=== PATIENT | female | born 1970 | race Caucasian/White ===

== ENCOUNTER 2018-08-02 06:52 | Emergency (ER) | payer MEDICARE, MEDICAID, SELFPAY ==
[2018-08-02 07:06] VITALS: BP 134/81; PULSE 90; RESP 18; TEMP 36.8; O2SAT 94
--- NOTE | 2018-08-02 07:33 | W.ED.GENAD ---
Discharge Plan Disposition Patient Disposition: HOME Condition: Stable Discharge Details Chief Complaint: RespSymp Clinical Impression: Acute exacerbation of chronic bronchitis Primary Care Provider: Jewel Parham ED Provider: Mary Valdez Home Meds and New Rx's Prescriptions: New doxycycline hyclate 100 mg tablet 100 mg PO BID Qty: 19 RF: 0 prednisone 50 mg tablet 50 mg PO DAILY Qty: 4 RF: 0 Continue lamotrigine [Lamictal] 25 MG tablet 25 mg PO DAILY RF: 0 escitalopram oxalate [Lexapro] 20 MG tablet 20 mg PO DAILY RF: 0 ipratropium-albuterol [Combivent] 200 PUFF aerosol 2 puff Inhalation DAILY RF: 0 naproxen 250 MG tablet 250 mg PO PRN PRNRF: 0 nabumetone 500 MG tablet 500 mg PO PRN PRNRF: 0 albuterol sulfate [ProAir HFA] 8.5 GM HFA aerosol inhaler 200 puff Inhalation Q4H PRN PRN (Reason: wheeze) Qty: 1 RF: 0 Discharge Instructions Instructions: Acute Bronchitis (ED), COPD (Chronic Obstructive Pulmonary Disease) (ED) Additional Instructions: Please return immediately to the emergency department if you develop any new or worsening symptoms or if you become otherwise concerned. It is extremely important that you make an appointment to be seen by your primary care doctor within the next 1-2 weeks in follow-up this visit. Referrals: Jewel Parham [Primary Care Provider] - Discharge Data Discharge Date/Time-TO BE ENTERED AT DEPARTURE: 08/02/18 10:03 Medical Decision Making Sunni Silva is a 48 y/o woman with h/o COPD, anxiety who presents emergency room with cough and shortness of breath over the past few days consistent with prior COPD exacerbations. On exam patient is nontoxic-appearing. She has intermittent dry cough, wheeze bilaterally and faint rhonchi left lower lobe on exam. There is no tachypnea or respiratory distress. Concern for COPD exacerbation versus pneumonia versus other. Exam/history not consistent with ACS, PE, sepsis, acute aortic pathology. Plan for chest x-ray, duo nebs, prednisone, screening EKG. Will monitor and reassess. CXR okay. Pt with improvement after one duoneb, feels less SOB, wheeze improved but not resolved on auscultation. Will repeat. Pt feels back to baseline after 2nd duoneb. Lungs now CTAB. Will treat acute COPD exacerbation with doxy, prednisone. Lengthy discussion with Pt re: RTED precautions and importance of outpt f/u with PCP. She is amenable to the plan. Medical Records Medical records reviewed: Yes I reviewed the patient's medical records. Imaging Data Radiologic Study: Attestation: I personally reviewed and interpreted this imaging study as follows: Imaging: X-Ray Radiologist's impression: PA AND LATERAL CHEST: Comparison is made with 03/17/18. Heart size and pulmonary vasculature are within normal limits. No evidence of acute pneumonia or congestive heart failure is seen. No effusions or pneumothoraces are identified. There is a mild S type scoliosis of the thoracolumbar spine. IMPRESSION: No acute pulmonary process. ECG Data Attestation: I personally reviewed and interpreted this ECG (s) as follows: Interpretation: EKG shows normal sinus rhythm at 80 with normal axis, no acute ischemic changes, unchanged from prior, Nondiagnostic EKG HPI General Mode of arrival: ambulatory. Date/Time Provider Initiated Documentation: 08/02/18 07:08. Limitations to Documentation: no limitations. Information obtained by: patient, RN notes reviewed and old records reviewed. HPI Narrative: Sunni Salomon is a 28-year-old woman with history of COPD presenting to the emergency department with shortness of breath and cough. Patient reports that she has had the symptoms for the past 3-4 days. She has been using Combivent and albuterol inhaler at home without relief of symptoms. Cough is productive of thick white sputum. She has had subjective fevers. She denies vomiting or diarrhea, chest pain or any other pain. Last use albuterol inhaler this morning one time without relief. Patient reports it has been at least a year since she was on steroids for her COPD. She is a current smoker. Related Data Home Medications Medication Instructions Recorded Confirmed escitalopram oxalate [Lexapro] 20 mg PO DAILY 05/11/17 08/02/18 lamotrigine [Lamictal] 25 mg PO DAILY 05/11/17 08/02/18 ipratropium-albuterol [Combivent] 2 puff INHALATION DAILY 05/29/17 08/02/18 nabumetone 500 mg PO PRN PRN 09/11/17 08/02/18 naproxen 250 mg PO PRN PRN 09/11/17 08/02/18 albuterol sulfate [ProAir HFA] 200 puff INHALATION Q4H PRN PRN #1 03/07/18 08/02/18 [email or web address].ad doxycycline hyclate 100 mg PO BID #19 tab 08/02/18 prednisone 50 mg PO DAILY #4 tab 08/02/18 Previous Rx's Medication Instructions Recorded albuterol sulfate [ProAir HFA] 200 puff INHALATION Q4H PRN PRN #1 03/07/18 [email or web address].ad doxycycline hyclate 100 mg PO BID #19 tab 08/02/18 prednisone 50 mg PO DAILY #4 tab 08/02/18 Allergies Allergy/AdvReac Type Severity Reaction Status Date / Time azithromycin [From Zithromax] Allergy Severe hives Unverified 08/02/18 07:09 aripiprazole Allergy Intermediate Nausea Unverified 08/02/18 07:09 chocolate flavor Allergy Unknown Unverified 08/02/18 07:09 coconut Allergy Unknown Unverified 08/02/18 07:09 erythromycin base Allergy Unknown Unverified 08/02/18 07:09 mushroom Allergy Unknown Unverified 08/02/18 07:09 pollen extracts Allergy Unknown Unverified 08/02/18 07:09 nicotine AdvReac Other (See Unverified 08/02/18 07:09 Comment) DUST Allergy Unknown Uncoded 08/02/18 07:09 General Stated Complaint: RespSymp NIC: 3 Review of Systems Review of Systems Constitutional: denies fevers Eyes: denies eye pain ENT: denies facial pain, dental pain, sore throat Cardiovascular: denies chest pain, edema Respiratory: reports SOB, cough GI: denies abdominal pain, vomiting, diarrhea : denies flank pain MSK: denies back pain, neck pain, arthralgias, myalgias Skin: denies rash Neuro: denies headaches, lightheadedness, weakness PFSH Medical History Abscess of sigmoid colon Bipolar affective disorder Bleeding external hemorrhoids Borderline personality disorder COPD (chronic obstructive pulmonary disease) Crohns disease DDD (degenerative disc disease), lumbosacral Depression with anxiety Disassociation disorder Major depressive disorder PTSD (post-traumatic stress disorder) Social History Smoking/Tobacco Use Status: Current every day Surgical History Exam under Anesthesia (09/15/17) Exam Narrative Exam Narrative: Constitutional: well and [id number], pleasant, conversing normally HENT: head atraumatic, normocephalic normal inspection, mucous membranes moist Eyes: conjunctiva normal, sclera normal, pupils 3mm b/l Neck: no stridor, normal ROM, trachea midline Chest: normal inspection Resp: normal work of breathing, wheeze b/l throughout, mild rhonchi LLL Cardio: normal rate, normal rhythm, no murmur appreciated Back: normal inspection, no rash Skin: warm, dry, normal color, no rash Neuro: alert, not altered, grossly non-focal, normal tone Ext: no edema, no posterior calf TTP Psych: normal mood, normal affect, normal behavior Course Vital Signs Temperature 36.8 C 08/02/18 07:06 Pulse 90 08/02/18 07:06 Respiratory Rate 18 08/02/18 07:06 Blood Pressure 134/81 08/02/18 07:06 Pulse Oximetry 94 L 08/02/18 07:06 Temperature 36.8 C 08/02/18 07:06 Temperature Source Temporal Artery Scan 08/02/18 07:06 Pulse 90 08/02/18 07:06 Respiratory Rate 18 08/02/18 07:06 Respiratory Effort Non-Labored 08/02/18 07:10 Respiratory Depth Normal 08/02/18 07:10 Blood Pressure 134/81 08/02/18 07:06 Blood Pressure Position Standing 08/02/18 07:06 Pulse Oximetry 94 L 08/02/18 07:06 Oxygen Delivery Method Room Air 08/02/18 07:06 Oxygen Flow Rate 0 08/02/18 07:06 End Tidal Co2 6 08/02/18 07:06
--- NOTE | 2018-08-02 07:39 | DI.RAD_ITS ---
SYMPTOM/DIAGNOSIS: SOB, COUGH PA AND LATERAL CHEST: Comparison is made with 03/17/18. Heart size and pulmonary vasculature are within normal limits. No evidence of acute pneumonia or congestive heart failure is seen. No effusions or pneumothoraces are identified. There is a mild S type scoliosis of the thoracolumbar spine. IMPRESSION: No acute pulmonary process.
[2018-08-02] MEDS: predniSONE 20 MG TAB 60 MG PO (07:47)
[2018-08-02] MEDS: Albuterol/Ipratropium 3 ML UPD VIAL UPD ×2 (07:47→09:00)
[2018-08-02 08:17] VITALS: RESP 1
--- NOTE | 2018-08-02 08:39 | DI.VRAD_ITS ---
EXAM: XR Chest, 2 Views EXAM DATE/TIME: 08/02/2018 8:20 AM CLINICAL HISTORY: 48 years old, female; Signs and symptoms; Other: SOB cough TECHNIQUE: XR of the chest, 2 views. COMPARISON: CR CHEST 2 VIEWS PA,LAT 03/17/2018 2:41 PM FINDINGS: Lungs: There is minor streaky bibasilar atelectasis. The lungs are otherwise clear. Pleural space: Unremarkable. No pleural effusion. No pneumothorax. Heart/Mediastinum: The cardiomediastinal silhouette is fairly stable in appearance. Bones/joints: There is again an S-shaped thoracic scoliosis. IMPRESSION: No evidence for acute pulmonary disease. Dictated and Authenticated by: Ian Elizondo MD. Ordering:GAMA REYES MD
[2018-08-02] MEDS: Doxycycline Hyclate 100 MG CAP PO (09:50)
[2018-08-02 10:00] VITALS: BP 124/73; PULSE 88; RESP 18; TEMP 36.8; O2SAT 95
--- NOTE | 2018-08-03 12:19 | PDOC.ERCMPRO ---
Care Management Progress Note 08/03-Dr. Colten Valdez requested assistance with a PCP (use to see Jewel Parham, requesting local provider, Dr. Baig contact officer) f/u in 1-2 weeks for COPD exacerbation. Referral faxed to [facility].
--- NOTE | 2018-08-03 12:23 | CMPROGNOTE_ITS ---
Care Management Progress Note 08/03-Dr. Colten Valdez requested assistance with a PCP (use to see Jewel Parham , requesting local provider, Dr. Baig loss mitigation specialist) f/u in 1-2 weeks for COPD exacerbation. Referral faxed to [facility].
== END 2018-08-02 10:03 | disposition home or self-care (01) ==
PROVIDERS: Emergency Provider Student in an Organized Health Care Education/Training Program; PCP Family Medicine
DX: J44.0 Chronic obstructive pulmonary disease with (acute) lower respiratory infection (principal); J20.9 Acute bronchitis, unspecified; F17.210 Nicotine dependence, cigarettes, uncomplicated
CPT/HCPCS: 93005; 94640; 99284; 71046; 93010; J7512; J7620

== ENCOUNTER 2018-11-15 20:21 | Inpatient (IN) | payer MEDICARE, MEDICAID, SELFPAY ==
[2018-11-15] VITALS (25 sets, daily range): BP systolic 104–123; BP diastolic 55–97; PULSE 86–112; RESP 4–38; TEMP 38.3; O2SAT 91–100
--- NOTE | 2018-11-15 20:56 | W.ED.GENAD ---
Discharge Plan Disposition Patient Disposition: [facility] INPATIENT Condition: Serious Discharge Details Chief Complaint: Chest Pain Clinical Impression: Pneumonia, COPD exacerbation Primary Care Provider: Jewel Parham ED Provider: Camden Valdez Home Meds and New Rx's Prescriptions: No Action lamotrigine [Lamictal] 25 MG tablet 25 mg PO DAILY RF: 0 escitalopram oxalate [Lexapro] 20 MG tablet 20 mg PO DAILY RF: 0 ipratropium-albuterol [Combivent] 200 PUFF aerosol 2 puff Inhalation DAILY RF: 0 naproxen 250 MG tablet 250 mg PO PRN PRNRF: 0 nabumetone 500 MG tablet 500 mg PO PRN PRNRF: 0 doxycycline hyclate 100 mg tablet 100 mg PO BID Qty: 19 RF: 0 prednisone 50 mg tablet 50 mg PO DAILY Qty: 4 RF: 0 albuterol sulfate [ProAir HFA] 8.5 GM HFA aerosol inhaler 200 puff Inhalation Q4H PRN PRN (Reason: wheeze) Qty: 1 RF: 0 Medical Decision Making 21:08 --48-year-old female with history of COPD here with left posterior lateral rib pain after fall on ice as well as general illness consisting of fever, myalgias, nausea, vomiting, diarrhea, and intermittently productive cough. Tachycardic. Clinically hypovolemic. Patient did not receive flu shot this year. I recommended testing for flu and patient declined. Patient provided informed refusal to flu testing. Suspect rib contusion versus fracture. Consider pneumothorax. Will treat pain with lidocaine patch and ibuprofen. Consider also pneumonia given symptoms. Plan to obtain chest x-ray. Will give doxycycline 100mg PO. Patient does have wheeze bilaterally. Suspect superimposed COPD exacerbation. Plan to treat with Solu-Medrol and DuoNeb. Zofran given for nausea. I will give IV fluid rehydration. 22:27 -- Labs reviewed: Leukocytosis and lactic acidosis noted. Chest x-ray reviewed and interpreted by radiology: IMPRESSION: Subtle patchy airspace disease in the lung bases. Findings suggesting infiltrates or pneumonia. 6 week followup study suggested. Patient persistently tachycardic. Continue IVF - will give second bolus. Will add ceftriaxone IV. Patient meets SIRS criteria. 23:00 -- I called and spoke with Dr. Lockett who will admit the patient. He request bridging orders be placed to the floor (IVF, nebs, diet). I spoke with warehouse stock clerk - bed to be available later this evening. HPI General Mode of arrival: ambulatory. Date/Time Provider Initiated Documentation: 11/15/18 20:45. Limitations to Documentation: no limitations. Information obtained by: patient. HPI Narrative: 48-year-old female with history of COPD presents with chief complaint of chest pain. Patient notes that over the past few days she slipped on ice and fallen 3 times and injured her chest during this fall. She has pain in her posterior lateral left mid chest and it radiates around laterally. Pain is severe and worse on palpation and with deep inspiration or cough. Patient also notes that she is been coughing over the past week with intermittently productive of white sputum. She has associated fever, nausea, vomiting, and body aches. Related Data Home Medications Medication Instructions Recorded Confirmed escitalopram oxalate [Lexapro] 20 mg PO DAILY 05/11/17 08/02/18 lamotrigine [Lamictal] 25 mg PO DAILY 05/11/17 08/02/18 ipratropium-albuterol [Combivent] 2 puff INHALATION DAILY 05/29/17 08/02/18 nabumetone 500 mg PO PRN PRN 09/11/17 08/02/18 naproxen 250 mg PO PRN PRN 09/11/17 08/02/18 albuterol sulfate [ProAir HFA] 200 puff INHALATION Q4H PRN PRN #1 03/07/18 08/02/18 [email or web address].ad doxycycline hyclate 100 mg PO BID #19 tab 08/02/18 prednisone 50 mg PO DAILY #4 tab 08/02/18 Previous Rx's Medication Instructions Recorded albuterol sulfate [ProAir HFA] 200 puff INHALATION Q4H PRN PRN #1 03/07/18 hfa.aer.ad doxycycline hyclate 100 mg PO BID #19 tab 08/02/18 prednisone 50 mg PO DAILY #4 tab 08/02/18 Allergies Allergy/AdvReac Type Severity Reaction Status Date / Time azithromycin [From Zithromax] Allergy Severe hives Unverified 08/02/18 07:09 aripiprazole Allergy Intermediate Nausea Unverified 08/02/18 07:09 chocolate flavor Allergy Unknown Unverified 08/02/18 07:09 coconut Allergy Unknown Unverified 08/02/18 07:09 erythromycin base Allergy Unknown Unverified 08/02/18 07:09 mushroom Allergy Unknown Unverified 08/02/18 07:09 pollen extracts Allergy Unknown Unverified 08/02/18 07:09 nicotine AdvReac Other (See Unverified 08/02/18 07:09 Comment) DUST Allergy Unknown Uncoded 08/02/18 07:09 General Stated Complaint: Chest Pain NIC: 2 Review of Systems Review of Systems All systems reviewed & are unremarkable except as noted in HPI and below Constitutional Reports body ache(s) and Reports fever(s) Respiratory Reports cough and Reports pain with cough Gastrointestinal Denies abdominal pain, Reports nausea and Reports vomiting PFSH Medical History Abscess of sigmoid colon Bipolar affective disorder Bleeding external hemorrhoids Borderline personality disorder COPD (chronic obstructive pulmonary disease) Crohns disease DDD (degenerative disc disease), lumbosacral Depression with anxiety Disassociation disorder Major depressive disorder PTSD (post-traumatic stress disorder) Surgical History Exam under Anesthesia (09/15/17) Social History Smoking and Tabacco status: Current every day Exam Const General: cooperative and no acute distress HENMT Head: normocephalic and atraumatic Mouth: mucous membranes dry Eyes Conjunctivae: normal conjunctivae Sclera: normal sclerae EOM: EOM intact bilaterally Neck Neck: trachea midline and supple Chest Chest: no crepitus and localized rib tenderness with anteroposterior compression (posterior lateral t6 left) Resp Auscultation: no rales, no rhonchi and wheezes Cardio Jugular venous pressure: no JVD Rate: tachycardic Rhythm: regular rhythm Heart Sounds: no gallops, no murmurs and no rubs GI Palpation: soft, not firm, no guarding, no masses, not rigid and nontender Skin General skin exam: no rashes or lesions noted Neuro General: alert, awake, oriented x3 and tone normal Extrem General: no calf tenderness and no edema Psych Mood: anxious mood Course Vital Signs Temperature 38.3 C H 11/15/18 20:27 Pulse 106 H 11/15/18 20:27 Respiratory Rate 16 02/11/19 20:27 Blood Pressure 118/81 11/15/18 20:27 Pulse Oximetry 94 L 11/15/18 20:27 Temperature 38.3 C H 11/15/18 20:27 Temperature Source Skin 11/15/18 20:27 Pulse 106 H 11/15/18 20:27 Respiratory Rate 16 11/15/18 20:27 Blood Pressure 118/81 11/15/18 20:27 Pulse Oximetry 94 L 11/15/18 20:27 Oxygen Delivery Method Room Air 11/15/18 20:27 Oxygen Flow Rate 0 11/15/18 20:27 Pain Level 10 11/15/18 20:27
--- NOTE | 2018-11-15 21:03 | ED.GENADUL_ITS ---
Discharge Plan Disposition Patient Disposition: [facility] INPATIENT Condition: Serious Discharge Details Chief Complaint: Chest Pain Clinical Impression: Pneumonia, COPD exacerbation Primary Care Provider: Jewel Parham ED Provider: Camden Valdez Home Meds and New Rx's Prescriptions: No Action lamotrigine [Lamictal] 25 MG tablet 25 mg PO DAILY RF: 0 escitalopram oxalate [Lexapro] 20 MG tablet 20 mg PO DAILY RF: 0 ipratropium-albuterol [Combivent] 200 PUFF aerosol 2 puff Inhalation DAILY RF: 0 naproxen 250 MG tablet 250 mg PO PRN PRNRF: 0 nabumetone 500 MG tablet 500 mg PO PRN PRNRF: 0 doxycycline hyclate 100 mg tablet 100 mg PO BID Qty: 19 RF: 0 prednisone 50 mg tablet 50 mg PO DAILY Qty: 4 RF: 0 albuterol sulfate [ProAir HFA] 8.5 GM HFA aerosol inhaler 200 puff Inhalation Q4H PRN PRN (Reason: wheeze) Qty: 1 RF: 0 Medical Decision Making 21:08 --48-year-old female with history of COPD here with left posterior lateral rib pain after fall on ice as well as general illness consisting of fever, myalgias, nausea, vomiting, diarrhea, and intermittently productive cough. Tachycardic. Clinically hypovolemic. Patient did not receive flu shot this year. I recommended testing for flu and patient declined. Patient provided informed refusal to flu testing. Suspect rib contusion versus fracture. Consider pneumothorax. Will treat pain with lidocaine patch and ibuprofen. Consider also pneumonia given symptoms. Plan to obtain chest x-ray. Will give doxycycline 100mg PO. Patient does have wheeze bilaterally. Suspect superimposed COPD exacerbation. Plan to treat with Solu-Medrol and DuoNeb. Zofran given for nausea. I will give IV fluid rehydration. 22:27 -- Labs reviewed: Leukocytosis and lactic acidosis noted. Chest x-ray reviewed and interpreted by radiology: IMPRESSION: Subtle patchy airspace disease in the lung bases. Findings suggesting infiltrates or pneumonia. 6 week followup study suggested. Patient persistently tachycardic. Continue IVF - will give second bolus. Will add ceftriaxone IV. Patient meets SIRS criteria. 23:00 -- I called and spoke with Dr. Lockett who will admit the patient. He request bridging orders be placed to the floor (IVF, nebs, diet). I spoke with supervisor bottle house cleaners - bed to be available later this evening. HPI General Mode of arrival: ambulatory . Date/Time Provider Initiated Documentation: 11/15/18 20:45 . Limitations to Documentation: no limitations . Information obtained by: patient . HPI Narrative: 48-year-old female with history of COPD presents with chief complaint of chest pain. Patient notes that over the past few days she slipped on ice and fallen 3 times and injured her chest during this fall. She has pain in her posterior lateral left mid chest and it radiates around laterally. Pain is severe and worse on palpation and with deep inspiration or cough. Patient also notes that she is been coughing over the past week with intermittently productive of white sputum. She has associated fever, nausea, vomiting, and body aches. Related Data Home Medications Medication Instructions Recorded Confirmed escitalopram oxalate [Lexapro] 20 mg PO DAILY 05/11/17 08/02/18 lamotrigine [Lamictal] 25 mg PO DAILY 05/11/17 08/02/18 ipratropium-albuterol [Combivent] 2 puff INHALATION DAILY 05/29/17 08/02/18 nabumetone 500 mg PO PRN PRN 09/11/17 08/02/18 naproxen 250 mg PO PRN PRN 09/11/17 08/02/18 albuterol sulfate [ProAir HFA] 200 puff INHALATION Q4H PRN PRN #1 03/07/18 08/02/18 hfa.aer.ad doxycycline hyclate 100 mg PO BID #19 tab 08/02/18 prednisone 50 mg PO DAILY #4 tab 08/02/18 Previous Rx's Medication Instructions Recorded albuterol sulfate [ProAir HFA] 200 puff INHALATION Q4H PRN PRN #1 03/07/18 hfa.aer.ad doxycycline hyclate 100 mg PO BID #19 tab 08/02/18 prednisone 50 mg PO DAILY #4 tab 08/02/18 Allergies Allergy/AdvReac Type Severity Reaction Status Date / Time azithromycin [From Zithromax] Allergy Severe hives Unverified 08/02/18 07:09 aripiprazole Allergy Intermediate Nausea Unverified 08/02/18 07:09 chocolate flavor Allergy Unknown Unverified 08/02/18 07:09 coconut Allergy Unknown Unverified 08/02/18 07:09 erythromycin base Allergy Unknown Unverified 08/02/18 07:09 mushroom Allergy Unknown Unverified 08/02/18 07:09 pollen extracts Allergy Unknown Unverified 08/02/18 07:09 nicotine AdvReac Other (See Unverified 08/02/18 07:09 Comment) DUST Allergy Unknown Uncoded 08/02/18 07:09 General Stated Complaint: Chest Pain NIC: 2 Review of Systems Review of Systems All systems reviewed & are unremarkable except as noted in HPI and below Constitutional Reports body ache(s) and Reports fever(s) Respiratory Reports cough and Reports pain with cough Gastrointestinal Denies abdominal pain, Reports nausea and Reports vomiting PFSH Medical History Abscess of sigmoid colon Bipolar affective disorder Bleeding external hemorrhoids Borderline personality disorder COPD (chronic obstructive pulmonary disease) Crohns disease DDD (degenerative disc disease), lumbosacral Depression with anxiety Disassociation disorder Major depressive disorder PTSD (post-traumatic stress disorder) Surgical History Exam under Anesthesia (09/15/17) Social History Smoking and Tabacco status: Current every day Exam Const General: cooperative and no acute distress HENMT Head: normocephalic and atraumatic Mouth: mucous membranes dry Eyes Conjunctivae: normal conjunctivae Sclera: normal sclerae EOM: EOM intact bilaterally Neck Neck: trachea midline and supple Chest Chest: no crepitus and localized rib tenderness with anteroposterior compression (posterior lateral t6 left) Resp Auscultation: no rales, no rhonchi and wheezes Cardio Jugular venous pressure: no JVD Rate: tachycardic Rhythm: regular rhythm Heart Sounds: no gallops, no murmurs and no rubs GI Palpation: soft, not firm, no guarding, no masses, not rigid and nontender Skin General skin exam: no rashes or lesions noted Neuro General: alert, awake, oriented x3 and tone normal Extrem General: no calf tenderness and no edema Psych Mood: anxious mood Course Vital Signs Temperature 38.3 C H 11/15/18 20:27 Pulse 106 H 11/15/18 20:27 Respiratory Rate 16 02/11/19 20:27 Blood Pressure 118/81 11/15/18 20:27 Pulse Oximetry 94 L 11/15/18 20:27 Temperature 38.3 C H 11/15/18 20:27 Temperature Source Skin 11/15/18 20:27 Pulse 106 H 11/15/18 20:27 Respiratory Rate 16 11/15/18 20:27 Blood Pressure 118/81 11/15/18 20:27 Pulse Oximetry 94 L 11/15/18 20:27 Oxygen Delivery Method Room Air 11/15/18 20:27 Oxygen Flow Rate 0 11/15/18 20:27 Pain Level 10 11/15/18 20:27
[2018-11-15] MEDS: Ondansetron 4 MG/2 ML VIAL IVP (21:07)
[2018-11-15] MEDS: Lidocaine 5% Patch 1 PATCH (21:07)
[2018-11-15] MEDS: Albuterol/Ipratropium 3 ML UPD VIAL UPD ×2 (21:07→23:02)
[2018-11-15] MEDS: Doxycycline Hyclate 100 MG CAP PO (21:07)
[2018-11-15] MEDS: Lactated Ringers 1,000 ML 1000 ML IV ×2 (21:08→22:30)
[2018-11-15] MEDS: methylPREDNISolone SUCC 125 MG VIAL IVP (21:08)
[2018-11-15] MEDS: Ketorolac 15 MG/ML VIAL IVP (21:27)
[2018-11-15 21:32] LABS: Lactate-non-spesis 2.9 mmol/l (0.6-1.4)
[2018-11-15 21:34] LABS: Abs Immature Grans 0.03 k/cumm (0.0-0.09); Absolute Eosinophil Count 0.58 k/cumm (0.0-0.7); Absolute Lymphocyte Count 2.01 k/cumm (1.2-3.4); Absolute Monocyte Count 1.19 k/cumm (0.11-0.7); Basophils % 0.1; Eosinophils % 4.3; HCT 44.3 % (36.0-46.0); HGB 15.3 g/dL (12.0-15.5); Immature Grans % 0.2; Lymphocytes % 14.9; Mean Corp. HGB Concentration 34.5 g/dL (32.0-36.0); Mean Corpuscular Hemoglobin 32.2 pg (27.0-33.0); Mean Corpuscular Volume 93.3 fL (80-95); Mean Platelet Volume 9.9 fL (8.0-11.0); Monocytes % 8.8; Neutrophils % 71.7; Platelet Count 322 x1000/uL (130-400); RBC 4.75 m/cumm (4.00-5.20); RBC Distribution Width 11.6 % (11.7-14.6); White Blood Cell Count 13.48 k/cumm (4.4-10.8)
[2018-11-15 21:35] LABS: Absolute Basophil Count 0.01 k/cumm (0.0-0.2); Absolute Neutrophil Count 9.67 k/cumm (1.2-6.7)
[2018-11-15 21:53] LABS: ALT 18 U/L (12-78); AST 17 U/L (15-37); Albumin 3.3 g/dL (3.4-5.0); Alkaline Phosphatase 101 U/L (46-116); Anion Gap 10.5 mmol/L (3-11); BUN 5 mg/dL (7-18); Bilirubin, Total 0.3 mg/dL (0.2-1.0); CO2 25.5 mmol/L (21.0-32.0); CREATININE 0.83 mg/dL (0.55-1.02); Chloride 95 mmol/L (98-107); Glucose 289 mg/dL (70-100); Potassium 3.5 mmol/L (3.5-5.1); Sodium 131 mmol/L (136-145); Total Protein 7.8 g/dL (6.4-8.2)
--- NOTE | 2018-11-15 22:10 | DI.RAD_ITS ---
SYMPTOM/DIAGNOSIS: COUGH, LT CHEST PAIN AFTER FALL PA AND LATERAL CHEST: Comparison is made with 08/02/18. Heart size and pulmonary vasculature are within normal limits. There are air space opacities seen in the lung bases, right greater than left. No effusions or pneumothoraces are identified. There is a mild right convex scoliosis of the thoracic spine. No acute fracture is identified. IMPRESSION: Bilateral basilar infiltrates, right greater than left. This may represent a pneumonia. Follow up examination to document resolution of the infiltrates is recommended in this patient.
--- NOTE | 2018-11-15 22:22 | DI.VRAD_ITS ---
EXAM: XR Chest, 2 Views EXAM DATE/TIME: 11/15/2018 8:56 PM CLINICAL HISTORY: 48 years old, female; Pain and signs and symptoms; Cough; Other: Left sided shoulder around front; Patient HX: Left sided chest pain shoulder radiating around front under arm after recent fall, cough, TECHNIQUE: XR of the chest, 2 views. COMPARISON: CR XR CHEST 2V PA LATERAL 08/02/2018 8:13 AM FINDINGS: Lungs: Subtle patchy airspace disease in the lung bases. Pleural space: Unremarkable. No evidence of pneumothorax. Heart/Mediastinum: Unremarkable. Heart size within normal limits for technique. Bones/joints: Unremarkable. IMPRESSION: Subtle patchy airspace disease in the lung bases. Findings suggesting infiltrates or pneumonia. 6 week followup study suggested. Dictated and Authenticated by: Gil Wyatt MD. Ordering:HOLDEN Hannah MD
[2018-11-15 23:56] LABS: Lactate-non-spesis 1.6 mmol/l (0.6-1.4)
[2018-11-16] MEDS: Lactated Ringers 1,000 ML 150 ML IV ×3 (00:16→12:44)
[2018-11-16 00:45] VITALS: BP 111/66; PULSE 92; RESP 18; TEMP 37.3; O2SAT 95
[2018-11-16 03:35] VITALS: BP 105/61; PULSE 85; RESP 16; TEMP 36.9; O2SAT 96
[2018-11-16] MEDS: Acetaminophen 325 MG TAB 650 MG PO (03:45)
--- NOTE | 2018-11-16 06:14 | HPE_ITS ---
Date of service: 11/16/18 Time of Service: 06:00 Assessment and Plan (1) COPD (chronic obstructive pulmonary disease): Current visit: Yes Status: Chronic COPD exacerbation and pneumonia. Flulike illness initially, note that patient declined flu test. She is much improved this morning. I would continue inhalers, pulse steroids and antibiotics. I think she could probably manage as an outpatient at this point given the rapid improvement. As to the thoracic pain which was the immediate precipitant of her visit it is probably fair to consider this a chest contusion at this point although it must be noted that a formal rib series was not obtained. Should there remain any question clinically we could c ertainly do so. History of Present Illness Chief Complaint: Chest pain and cough Narrative: Patient is a 48-year-old female with history of COPD she came to the emergency room because of chest pain after a fall on the ice, pain is in the left scapular region. However, she also reports 4 days of cough, fever, myalgias, diarrhea and generalized malaise. She did not have a flu shot in the emergency room initial workup of note for sinus tachycardia, leukocytosis and chest x-ray demonstrating bibasilar pneumonitis. She was also found to be wheezing. Patient was given IV fluids, initially a do se of doxycycline orally and then IV Rocephin, updrafts and steroids. She was admitted for further management. This morning the patient says she feels tremendously improved, virtually back to her usual self. Note that no fracture was noted on chest film. Review of Systems Review of Systems All systems reviewed & are unremarkable except as noted in HPI and below PFSH Medical History Abscess of sigmoid colon Bipolar affective disorder Bleeding external hemorrhoids Borderline personality disorder COPD (chronic obstructive pulmonary disease) Crohns disease DDD (degenerative disc disease), lumbosacral Depression with anxiety Disassociation disorder Major depressive disorder PTSD (post-traumatic stress disorder) Surgical History Exam under Anesthesia (09/15/17) Social History Smoking and Tabacco status: Current every day Meds Home Medications Medication Instructions Recorded Confirmed Type escitalopram oxalate [Lexapro] 100 mg PO DAILY 05/11/17 11/16/18 History lamotrigine [Lamictal] 25 mg PO DAILY 05/11/17 11/16/18 History Combivent 2 puff INHALATION DAILY 05/29/17 11/16/18 History nabumetone 500 mg PO PRN PRN 09/11/17 11/16/18 History naproxen 250 mg PO PRN PRN 09/11/17 11/16/18 History ProAir HFA 200 puff INHALATION Q4H PRN PRN #1 03/07/18 11/16/18 Rx hfa.aer.ad doxycycline hyclate 100 mg PO BID #19 tab 08/02/18 11/16/18 Rx prednisone 50 mg PO DAILY #4 tab 08/02/18 11/16/18 Rx dextroamphetamine-amphetamine 20 mg PO BID 11/16/18 11/16/18 History [Adderall] Allergies Allergy/AdvReac Type Severity Reaction Status Date / Time azithromycin [From Zithromax] Allergy Severe hives Unverified 08/02/18 07:09 aripiprazole Allergy Intermediate Nausea Unverified 08/02/18 07:09 chocolate flavor Allergy Unknown Unverified 08/02/18 07:09 coconut Allergy Unknown Unverified 08/02/18 07:09 erythromycin base Allergy Unknown Unverified 08/02/18 07:09 mushroom Allergy Unknown Unverified 08/02/18 07:09 pollen extracts Allergy Unknown Unverified 08/02/18 07:09 nicotine AdvReac Other (See Unverified 08/02/18 07:09 Comment) DUST Allergy Unknown Uncoded 08/02/18 07:09 Exam Narrative Exam Narrative: Patient is lying flat in the bed in no distress. Blood pressure 105/61, pulse 85, respirations 16, temp 36.9, O2 sat 96% on room air. HEENT unremarkable. Neck is supple. Lungs are clear. Chest wall shows no bruising and no tenderness on the left posteriorly. heart regular rate and rhythm. Abdomen is soft and nontender. Extremities without edema. Neurological patient is alert and oriented moves all 4 extremities. Results Labs : 11/15/18 21:15 11/15/18 21:15 Laboratory Results - last 24 hr 11/15/18 11/15/18 11/15/18 21:15 21:15 21:15 WBC 13.48 H RBC 4.75 Hgb 15.3 Hct 44.3 MCV 93.3 MCH 32.2 MCHC 34.5 RDW 11.6 L Plt Count 322 MPV 9.9 Immature Gran % 0.2 Neutrophils % 71.7 Lymphocytes % 14.9 Monocytes % 8.8 Eosinophils % 4.3 Basophils % 0.1 Absolute Neutrophils 9.67 H Absolute Lymphocytes 2.01 Absolute Monocytes 1.19 H Absolute Eosinophils 0.58 Absolute Basophils 0.01 Sodium 131 L Potassium 3.5 Chloride 95 L Carbon Dioxide 25.5 Anion Gap 10.5 BUN 5 L Creatinine 0.83 Estimated GFR/1.73 m2 >= 60.00 Glucose 289 H Lactate 2.9 H Calcium 9.0 Total Bilirubin 0.3 AST 17 ALT 18 Alkaline Phosphatase 101 Total Protein 7.8 Albumin 3.3 L 11/15/18 23:42 WBC RBC Hgb Hct MCV MCH MCHC RDW Plt Count MPV Immature Gran % Neutrophils % Lymphocytes % Monocytes % Eosinophils % Basophils % Absolute Neutrophils Absolute Lymphocytes Absolute Monocytes Absolute Eosinophils Absolute Basophils Sodium Potassium Chloride Carbon Dioxide Anion Gap BUN Creatinine Estimated GFR/1.73 m2 Glucose Lactate 1.6 H Calcium Total Bilirubin AST ALT Alkaline Phosphatase Total Protein Albumin Last Vital Signs Temp 36.9 C 11/16/18 03:35 Pulse 85 11/16/18 03:35 Resp 16 11/16/18 03:35 BP 105/61 11/16/18 03:35 Pulse Ox 96 11/16/18 03:35
[2018-11-16] MEDS: predniSONE 20 MG TAB 60 MG PO (07:40)
[2018-11-16] MEDS: Escitalopram 20 MG TAB 100 MG PO (07:40)
[2018-11-16] MEDS: Doxycycline Hyclate 100 MG CAP PO (07:41)
[2018-11-16] MEDS: lamoTRIgine 25 MG TAB PO (07:47)
[2018-11-16 07:49] VITALS: BP 130/74; PULSE 68; RESP 18; TEMP 36.9; O2SAT 95
[2018-11-16] MEDS: LEVOFLOXACIN 500 MG, LEVOFLOXACIN 250 MG 750 MG PO (10:26)
[2018-11-16 11:50] VITALS: BP 136/73; PULSE 76; RESP 18; TEMP 36; O2SAT 95
--- NOTE | 2018-11-16 12:45 | NUR.NOTE ---
pt removed lidocaine patch, patch placed in sharps container.Nursing Note:
[2018-11-16] MEDS: Albuterol HFA 8 GM 60 PUFF INH IH (14:30)
[2018-11-16] MEDS: Albuterol 2.5 MG/3 ML INH SOLN VIAL UPD (14:45)
--- NOTE | 2018-11-16 14:46 | PDOC.CMIN ---
- If Service Date Differs Date of service: 11/16/18 Time of Service: 14:46 Care Management Initial Assess REASON FOR HOSPITALIZATION:: Pneumonia, COPD Exacerbation PAST MEDICAL HISTORY/PAST SURGICAL HISTORY:: Abscess of sigmoid colon. Bipolar affective disorder. Bleeding external hemorrhoids. Borderline personality disorder. COPD (chronic obstructive pulmonary disease). Crohns disease. DDD (degenerative disc disease), lumbosacral. Depression with anxiety. Disassociation disorder. Major depressive disorder. PTSD (post-traumatic stress disorder). Exam under Anesthesia (09/15/17) PREVIOUS FUNCTIONAL STATUS/SOCIAL/FAMILY SUPPORTS:: Sunni resides in [facility] with her [employer]. 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 Sunni is independent at baseline, she drives, and manages ADL's CURRENT FUNCTIONAL STATUS:: Currently Sunni is lying in bed, pleasant and receptive to discussion. States that her will be bringing her a pad to draw on. ADVANCE DIRECTIVES:: None on file Has patient been provided with information about the portal?: Yes Did the patient sign up for the portal?: No CODE STATUS:: Full Code INSURANCE COVERAGE / FINANCIAL ISSUES:: Medicare, Medicaid CURRENT HOME/COMMUNITY SERVICES/EQUIPMENT:: Currently Sunni has no medical equipment in the community. She reports that she sees Yesy Medina for therapy through [facility] in [place]. PRIMARY CARE PHYSICIAN:: Dr. Parham POTENTIAL DISCHARGE NEEDS:: F/U appointment with PCP. Would like a new PCP PATIENT/FAMILY EDUCATION NEEDS:: Review DC instructions, any limitations, and ongoing DC planning discussion. Discuss 'Ask Me Three' ANTICIPATED BARRIERS TO DISCHARGE:: None identified at this time. TRANSPORTATION:: Via private vehicle with [employer]. PLAN:: Sunni will return home with no anticipated services. She will F/U with PCP and plan of care as prescribed. Sunni's will transport when ready.
--- NOTE | 2018-11-16 15:00 | INITIAL_ITS ---
- If Service Date Differs Date of service: 11/16/18 Time of Service: 14:46 Care Management Initial Assess REASON FOR HOSPITALIZATION:: Pneumonia, COPD Exacerbation PAST MEDICAL HISTORY/PAST SURGICAL HISTORY:: Abscess of sigmoid colon. Bipolar affective disorder. Bleeding external hemorrhoids. Borderline personality disorder. COPD (chronic obstructive pulmonary disease). Crohns disease. DDD (degenerative disc disease), lumbosacral. Depression with anxiety. Disassociation disorder. Major depressive disorder. PTSD (post-traumatic stress disorder). Exam under Anesthesia (09/15/17) PREVIOUS FUNCTIONAL STATUS/SOCIAL/FAMILY SUPPORTS:: Sunni resides in [facility] with her [employer]. 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 Sunni is independent at baseline, she drives, and manages ADL's CURRENT FUNCTIONAL STATUS:: Currently Sunni is lying in bed, pleasant and receptive to discussion. States that her will be bringing her a pad to draw on. ADVANCE DIRECTIVES:: None on file Has patient been provided with information about the portal?: Yes Did the patient sign up for the portal?: No CODE STATUS:: Full Code INSURANCE COVERAGE / FINANCIAL ISSUES:: Medicare, Medicaid CURRENT HOME/COMMUNITY SERVICES/EQUIPMENT:: Currently Sunni has no medical equipment in the community. She reports that she sees Yesy Medina for therapy through [facility] in [place]. PRIMARY CARE PHYSICIAN:: Dr. Parham POTENTIAL DISCHARGE NEEDS:: F/U appointment with PCP. Would like a new PCP PATIENT/FAMILY EDUCATION NEEDS:: Review DC instructions, any limitations, and ongoing DC planning discussion. Discuss 'Ask Me Three' ANTICIPATED BARRIERS TO DISCHARGE:: None identified at this time. TRANSPORTATION:: Via private vehicle with [employer]. PLAN:: Sunni will return home with no anticipated services. She will F/U with PCP and plan of care as prescribed. Sunni's will transport when ready.
--- NOTE | 2018-11-16 15:25 | W.PM.DS.N ---
Date of service: 11/16/18 Time of Service: 15:25 DS: Diagnosis Discharge Diagnosis (1) COPD (chronic obstructive pulmonary disease): Status: Chronic (2) Pneumonia: Status: Acute Discharge Plan Disposition Patient Disposition: HOME Condition: Improving Discharge Details Reason For Visit: PNEUMONIA, COPD EXACERBATION Admit Date/Time: 11/15/18 23:04 Admit Provider: Momo Lokcett Attending Provider: Momo Lockett Primary Care Provider: Jewel Parham Hospital Course Hospital Course: CC: Dyspnea HPI: 48-year-old woman with a past medical history significant for COPD, admitted from [facility] emergency department on 11/15 with diagnosis of pneumonia with concurrent COPD exacerbation. Mrs. Salomon has a history of bipolar disorder, PTSD, and depression. Crohn's disease is also listed as a part of her medical history. She is a smoker, with a prior history of COPD as well. The patient presented to the ED secondary to chest pain after a fall on the ice, without any noted fracture on imaging. However she also had evidence of infiltrates by imaging, and admitted to 4 days of cough fever myalgias and generalized malaise. Initial lactate was elevated, and she had evidence of a mild leukocytosis by labs. The patient refused tested for influenza. Following admission the patient's experienced vast and rather quick improvement in her symptoms, and was requesting to go home on the morning after her admission. She eventually was okay with staying for the remainder of the day for IV fluids and further administration of antibiotic therapy, and by this afternoon she appears significantly improved. While febrile at presentation, she has not had any further fevers since last evening. She is also no longer tachycardic, and her blood pressure is normotensive. She is also not requiring any supplemental oxygen therapy. Unfortunately blood cultures were not drawn in the ED prior to her admission and initiation of antibiotic therapy. She is amenable continuation of antibiotics and steroids at home, and is in fact requesting a Symbicort inhaler as well, something that she reportedly has been on in the past. She will be discharged some hesitation, as per her request, with a full course of antibiotic therapy with oral levofloxacin, steroid taper, inhaler therapy to include both Symbicort and a rescue inhaler. Unfortunately the patient refused influenza testing. She was counseled to return to the emergency department or contact her physician if her symptoms did not resolve or if they worsened over time. Home Meds and New Rx's Prescriptions: New levofloxacin [Levaquin] 750 mg Tablet 750 mg PO DAILY Qty: 6 RF: 0 Symbicort 160-4.5 mcg/actuation HFA aerosol inhaler 2 puff IH Q12H Qty: 10.2 RF: 0 prednisone 10 mg tablet 10 mg PO DAILY Qty: 26 RF: 0 Continued lamotrigine [Lamictal] 25 MG tablet 25 mg PO DAILY RF: 0 escitalopram oxalate [Lexapro] 20 MG tablet 100 mg PO DAILY RF: 0 Combivent 200 PUFF aerosol 2 puff Inhalation DAILY RF: 0 naproxen 250 MG tablet 250 mg PO PRN PRNRF: 0 nabumetone 500 MG tablet 500 mg PO PRN PRNRF: 0 ProAir HFA 8.5 GM HFA aerosol inhaler 200 puff Inhalation Q4H PRN PRN (Reason: wheeze) Qty: 1 RF: 0 dextroamphetamine-amphetamine [Adderall] 20 mg Tablet 20 mg PO BID RF: 0 Discontinued doxycycline hyclate 100 mg tablet 100 mg PO BID Qty: 19 RF: 0 prednisone 50 mg tablet 50 mg PO DAILY Qty: 4 RF: 0 Discharge Instructions Instructions: COPD (Chronic Obstructive Pulmonary Disease) (DC), Pneumonia (DC) Additional Instructions: Please return to the hospital or see your doctor if your symptoms worsen. Please continue your medications as prescribed until they are completed. Stand Alone Forms: Nursing Discharge Form Referrals: Jewel Parham [Primary Care Provider] - 11/29/18 9:45 am Activity:: No Strenuous Activity. Equipment/Supplies:: No Equipment Needed Diet:: As Tolerated Discharge Orders Discharge Orders: Discharge Order (Routine); Ordered 11/16/18 Ordered By: Jeison Cheek Exam Narrative Exam Narrative: General: Patient appears comfortable, AAOX3, NAD Neck: Supple CV: Regular, nontachycardic, S1S2, No rubs, murmurs, or gallops. Pulmonary: Mild bibasilar crackles, minimal wheezing at the bases, good air entry. Abdomen: + Bowel Sounds, soft, nontender, nondistended Vascular: No lower extremity edema Neurologic: CN II-XII grossly intact. No focal deficits. Psych: Normal mood and affect. DS: Data Vitals/I&O Vitals and I&O: Vital Signs Temperature 36 C L 11/16/18 11:50 Temperature Source Tympanic 11/16/18 11:50 Pulse 76 11/16/18 11:50 Pulse Rhythm Regular 11/16/18 08:22 Pulse 105 H 11/15/18 21:15 Respiratory Rate 18 11/16/18 11:50 Respiratory Effort 11/16/18 08:22 Respiratory Depth Normal 11/16/18 08:22 Respiratory Pattern Normal 11/16/18 08:22 Blood Pressure 136/73 11/16/18 11:50 Blood Pressure Mean 71 11/15/18 23:31 Pulse Oximetry 95 11/16/18 11:50 Oxygen Delivery Method Room Air 11/16/18 11:50 Oxygen Flow Rate 0 11/16/18 11:50 Pain Level 8 11/16/18 11:50 Intake & Output 11/15/18 11/16/18 11/16/18 23:59 11:59 23:59 Intake Total 1000 / 1000 3247.5 / 4960.0 1712.5 / 4960.0 Output Total 800 / 800 Balance 1000 / 1000 2447.5 / 4160.0 1712.5 / 4160.0 Weight 76.1 kg Intake: IV 1000 / 1000 1927.5 / 2920.0 992.5 / 2920.0 Oral 1320 / 2040 720 / 2040 Output: Urine 800 / 800 Other: Urine Color Yellow Urine Appearance Clear Urine Odor Normal Voiding Methods Toilet Completed studies during hospitalization [Text1]: Exam(s) a RAD:XR chest 2V PA & lateral SYMPTOM/DIAGNOSIS: COUGH, LT CHEST PAIN AFTER FALL PA AND LATERAL CHEST: Comparison is made with 08/02/18. Heart size and pulmonary vasculature are within normal limits. There are air space opacities seen in the lung bases, right greater than left. No effusions or pneumothoraces are identified. There is a mild right convex scoliosis of the thoracic spine. No acute fracture is identified. IMPRESSION: Bilateral basilar infiltrates, right greater than left. This may represent a pneumonia. Follow up examination to document resolution of the infiltrates is recommended in this patient. Labs on day of discharge: Labs from last 24 hours 11/15/18 11/15/18 11/15/18 23:42 21:15 21:15 WBC 13.48 H RBC 4.75 Hgb 15.3 Hct 44.3 MCV 93.3 MCH 32.2 MCHC 34.5 RDW 11.6 L Plt Count 322 MPV 9.9 Immature Gran % 0.2 Neutrophils % 71.7 Lymphocytes % 14.9 Monocytes % 8.8 Eosinophils % 4.3 Basophils % 0.1 Absolute Neutrophils 9.67 H Absolute Lymphocytes 2.01 Absolute Monocytes 1.19 H Absolute Eosinophils 0.58 Absolute Basophils 0.01 Sodium Potassium Chloride Carbon Dioxide Anion Gap BUN Creatinine Estimated GFR/1.73 m2 Glucose Lactate 1.6 H 2.9 H Calcium Total Bilirubin AST ALT Alkaline Phosphatase Total Protein Albumin 11/15/18 21:15 WBC RBC Hgb Hct MCV MCH MCHC RDW Plt Count MPV Immature Gran % Neutrophils % Lymphocytes % Monocytes % Eosinophils % Basophils % Absolute Neutrophils Absolute Lymphocytes Absolute Monocytes Absolute Eosinophils Absolute Basophils Sodium 131 L Potassium 3.5 Chloride 95 L Carbon Dioxide 25.5 Anion Gap 10.5 BUN 5 L Creatinine 0.83 Estimated GFR/1.73 m2 >= 60.00 Glucose 289 H Lactate Calcium 9.0 Total Bilirubin 0.3 AST 17 ALT 18 Alkaline Phosphatase 101 Total Protein 7.8 Albumin 3.3 L [facility] Medical History Abscess of sigmoid colon Bipolar affective disorder Bleeding external hemorrhoids Borderline personality disorder COPD (chronic obstructive pulmonary disease) Crohns disease DDD (degenerative disc disease), lumbosacral Depression with anxiety Disassociation disorder Major depressive disorder PTSD (post-traumatic stress disorder) Surgical History Exam under Anesthesia (09/15/17) Social History Smoking and Tabacco status: Current every day
== END 2018-11-16 16:00 | disposition home or self-care (01) | DRG 190 ==
LOC: ER 23:24 → MS 11-16 00:45
PROVIDERS: Admitting Provider General Practice; Emergency Provider Student in an Organized Health Care Education/Training Program; PCP Family Medicine; Visit Provider Internal Medicine
DX: J44.0 Chronic obstructive pulmonary disease with (acute) lower respiratory infection (principal); J18.9 Pneumonia, unspecified organism; J44.1 Chronic obstructive pulmonary disease with (acute) exacerbation; F17.210 Nicotine dependence, cigarettes, uncomplicated; S20.222A Contusion of left back wall of thorax, initial encounter; W00.0XXA Fall on same level due to ice and snow, initial encounter; F32.9 Major depressive disorder, single episode, unspecified
CPT/HCPCS: 36415; 80053; 93005; 94640; 96361; 96365; 96375; 99222; 99239; 99285; 71046; 83605; 85025; 93010; J0696; J1885; J2405; J2930; J7512; J7613; J7620

== ENCOUNTER 2019-02-07 15:04 | Emergency (ER) | payer MEDICARE, MEDICAID, SELFPAY ==
[2019-02-07] VITALS (16 sets, daily range): BP systolic 115–156; BP diastolic 75–119; PULSE 90–117; RESP 16–22; TEMP 36.6; O2SAT 96–99
--- NOTE | 2019-02-07 15:28 | W.ED.GENAD ---
Discharge Plan Disposition Patient Disposition: HOME Condition: Good Discharge Details Chief Complaint: Nk/Back Pain Clinical Impression: Muscle spasms of neck Primary Care Provider: Jewel Parham ED Provider: Hong Thakur Home Meds and New Rx's Prescriptions: New diazepam [Valium] 5 mg tablet 5 mg PO BID Qty: 6 RF: 0 No Action lamotrigine [Lamictal] 25 MG tablet 25 mg PO DAILY RF: 0 escitalopram oxalate [Lexapro] 20 MG tablet 100 mg PO DAILY RF: 0 Combivent 200 PUFF aerosol 2 puff Inhalation DAILY RF: 0 naproxen 250 MG tablet 250 mg PO PRN PRNRF: 0 nabumetone 500 MG tablet 500 mg PO PRN PRNRF: 0 ProAir HFA 8.5 GM HFA aerosol inhaler 200 puff Inhalation Q4H PRN PRN (Reason: wheeze) Qty: 1 RF: 0 dextroamphetamine-amphetamine [Adderall] 20 mg Tablet 20 mg PO BID RF: 0 levofloxacin [Levaquin] 750 mg Tablet 750 mg PO DAILY Qty: 6 RF: 0 Symbicort 160-4.5 mcg/actuation HFA aerosol inhaler 2 puff IH Q12H Qty: 10.2 RF: 0 prednisone 10 mg tablet 10 mg PO DAILY Qty: 26 RF: 0 Discharge Instructions Instructions: Cervical Sprain (ED) Additional Instructions: Please take the Valium only as needed. Please continue taking Tylenol and ibuprofen as well as your Lidoderm patches. If you notice any worsening of your symptoms, or any new symptoms such as vomiting, diarrhea, fever, chills, shortness of breath, chest pain, numbness, weakness, or fainting , please return immediately to the emergency department for reevaluation. Please follow up with your primary care provider as soon as possible for reassessment and reevaluation. As always, it was a pleasure participating in your medical care today. Referrals: Jewel Parham [Primary Care Provider] - Medical Decision Making This is a pleasant 48-year-old female who presents with 1 week of left-sided neck pain, she describes it as sharp and achy, worse with movement, improved by no NSAIDs or Lidoderm patch. She denies any radiation to her arm, head, or chest. No history of trauma or significant strenuous activity bring about her symptoms. She does demonstrate notable reproducible left cervical paraspinal pain over see 456. No evidence of neurologic complaints or abnormalities. No carotid or vertebral bruits. No clinical evidence of meningitis. Signs, symptoms, and history appear clinically inconsistent with vertebral artery dissection, carotid artery dissection, or meningitis. Signs and symptoms appear consistent with musculoskeletal sprain or spasm. We will give a local paraspinal block, if this improves her symptoms feel she can be safely discharged. If not we can do a trial of Valium. 6:26 PM Patient was given a trial of Valium, as well as 4 mg of morphine, and after this and the block the patient has near complete resolution of her symptoms. She is got excellent range of motion for her neck, still demonstrates no clinical signs of meningitis. CT Gill of the head neck is negative for any acute process, dissection, lead or tumor per radiology. I did offer lumbar puncture for further diagnostic evaluation, and the patient has refused at this time, initially I think there is no clinical evidence of acute encephalitis or meningitis at this time. The patient has been asking to leave multiple times and that she can go smoke a cigarette. She is actively texting on the phone, and clinically looks very well. With resolution of her symptoms, no clinical signs of significant abnormality on exam I feel she can be safely discharged home. Feel her signs and symptoms are clinically consistent with musculoskeletal spasm. We will give her a trial of Valium for home use, recommend close follow-up with her PCP. I have extensively reviewed the treatment plan and discharge instructions with the patient. I have addressed all patient concerns at this time. The patient was made aware of what symptoms to monitor for that would warrant a return to the emergency department. Discussed the plan with the patient, they demonstrate verbal understanding and agreement with our assessment and plan at this time. 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 Page 1 of 3 EXAM: CT Angiography Head With Contrast EXAM DATE/TIME: 02/07/2019 3:40 PM CLINICAL HISTORY: 48 years old, female; Other: Neck to base of head pain; Patient HX: Per PT: Severe pain up neck to base of head; Additional info: Per PT: Neck feels like being hit with hammer when walking TECHNIQUE: Imaging protocol: Axial computed tomographic angiography images of the head with intravenous contrast using CT angiography protocol. Coronal and sagittal reformatted images were subsequently obtained and reviewed. 3D rendering: MIP reconstructed images were created and reviewed. COMPARISON: No relevant prior studies available. FINDINGS: Right internal carotid artery: Unremarkable. Intracranial segment is patent with no significant stenosis. No aneurysm. Right anterior cerebral artery: Unremarkable. No occlusion or significant stenosis. No aneurysm. Right middle cerebral artery: Unremarkable. No occlusion or significant stenosis. No aneurysm. Right posterior cerebral artery: Unremarkable. No occlusion or significant stenosis. No aneurysm. Right vertebral artery: Unremarkable. No occlusion or significant stenosis. No aneurysm. Left internal carotid artery: Unremarkable. Intracranial segment is patent with no significant stenosis. No aneurysm. Left anterior cerebral artery: Unremarkable. No occlusion or significant stenosis. No aneurysm. BROOK GREWAL Preliminary Radiology Report Page 2 of 3 Left middle cerebral artery: Unremarkable. No occlusion or significant stenosis. No aneurysm. Left posterior cerebral artery: Unremarkable. No occlusion or significant stenosis. No aneurysm. Left vertebral artery: Unremarkable. No occlusion or significant stenosis. No aneurysm. Basilar artery: Unremarkable. No occlusion or significant stenosis. No aneurysm. IMPRESSION: No stenosis or aneurysm. EXAM: CT Angiography Neck With Contrast EXAM DATE/TIME: 02/07/2019 3:40 PM CLINICAL HISTORY: 48 years old, female; Other: Neck to base of head pain; Patient HX: Per PT: Severe pain up neck to base of head; Additional info: Per PT: Neck feels like being hit with hammer when walking TECHNIQUE: Imaging protocol: Axial computed tomographic angiography images of the neck with intravenous contrast using CT angiography protocol. Coronal and sagittal reformatted images were subsequently obtained and reviewed. 3D rendering: MIP reconstructed images were created and reviewed. COMPARISON: No relevant prior studies available. FINDINGS: VASCULATURE: Right common carotid artery: Normal. No significant stenosis. No dissection or occlusion. Right internal carotid artery: Normal. Extracranial segment is patent with no significant stenosis. No dissection or occlusion. Right external carotid artery: Normal. No occlusion or significant stenosis. Right vertebral artery: Normal. No significant stenosis. No dissection or occlusion. Left common carotid artery: Arises from the brachiocephalic trunk. No significant stenosis. No dissection or occlusion. Left internal carotid artery: Normal. Extracranial segment is patent with no significant stenosis. No dissection or occlusion. Left external carotid artery: Normal. No occlusion or significant stenosis. Left vertebral artery: Normal. No significant stenosis. No dissection or occlusion. [facility] GREW[facility] Preliminary Radiology Report PHARMACIST PER DIEM (QA) DISCREPANCY? If there is a discrepancy between the preliminary and final interpretation, please notify [facility] via [email or web address]. If you do not have access to our QA portal, call our QA team at [phone] CONFIDENTIALITY STATEMENT This report is intended only for the use of the referring physician, and only in accordance with law, If you received this in error, call [phone] Page 3 of 3 NECK: Bones/joints: No acute fracture. Soft tissues: Normal. No significant soft tissue swelling. IMPRESSION: No stenosis or aneurysm. No evidence of acute dissection. COMMENT: Reference per NASCET criteria for degree of stenosis: Mild: less than 50% stenosis. Moderate: 50- 69% stenosis. Severe: 70-94% stenosis. Near occlusion: 95-99% stenosis. Thank you for allowing us to participate in the care of your patient. Dictated and Authenticated by: Rogerio Kenny MD 02/07/2019 6:20 PM Eastern Time ([place] & [place]) HPI General Date/Time Provider Initiated Documentation: 02/07/19 15:15. HPI Narrative: This is a 48-year-old female with a past medical history of COPD, who presents today for evaluation of neck pain. Patient states that for the last week she has had neck pain, primarily on the left side of her neck. It started when she woke up in the morning. She describes it as sharp and achy in nature. Worse with movement in any direction. It is located on the left aspect of her lower neck right below the left component of the occiput. She denies any radiation to the arms, shoulders, or head. She denies any significant headache. She denies any significant numbness or tingling. She denies any tearing sensation, ripping sensation, she denies any trauma or significant event that brought about her initial symptoms. She denies any IV drug use. She states that she has taken every form of NSAID that there is, including a Lidoderm patch and has had no significant improvement of her symptoms with this. She has no other complaints at this time. She denies any previous neck surgeries. Related Data Home Medications Medication Instructions Recorded Confirmed escitalopram oxalate [Lexapro] 100 mg PO DAILY 05/11/17 11/16/18 lamotrigine [Lamictal] 25 mg PO DAILY 05/11/17 11/16/18 Combivent 2 puff INHALATION DAILY 05/29/17 11/16/18 nabumetone 500 mg PO PRN PRN 09/11/17 11/16/18 naproxen 250 mg PO PRN PRN 09/11/17 11/16/18 ProAir HFA 200 puff INHALATION Q4H PRN PRN #1 03/07/18 11/16/18 [email or web address] budesonide-formoterol [Symbicort] 2 puff IH Q12H #10.2 gm 11/16/18 dextroamphetamine-amphetamine 20 mg PO BID 11/16/18 11/16/18 [Adderall] levofloxacin [Levaquin] 750 mg PO DAILY #6 tab 11/16/18 prednisone 10 mg PO DAILY #26 tab 11/16/18 diazepam [Valium] 5 mg PO BID #6 tab 02/07/19 Previous Rx's Medication Instructions Recorded ProAir HFA 200 puff INHALATION Q4H PRN PRN #1 03/07/18 [email or web address] budesonide-formoterol [Symbicort] 2 puff IH Q12H #10.2 gm 11/16/18 levofloxacin [Levaquin] 750 mg PO DAILY #6 tab 11/16/18 prednisone 10 mg PO DAILY #26 tab 11/16/18 diazepam [Valium] 5 mg PO BID #6 tab 02/07/19 Allergies Allergy/AdvReac Type Severity Reaction Status Date / Time azithromycin [From Zithromax] Allergy Severe hives Unverified 08/02/18 07:09 aripiprazole Allergy Intermediate Nausea Unverified 08/02/18 07:09 chocolate flavor Allergy Unknown Unverified 08/02/18 07:09 coconut Allergy Unknown Unverified 08/02/18 07:09 erythromycin base Allergy Unknown Unverified 08/02/18 07:09 mushroom Allergy Unknown Unverified 08/02/18 07:09 pollen extracts Allergy Unknown Unverified 08/02/18 07:09 nicotine AdvReac Other (See Unverified 08/02/18 07:09 Comment) DUST Allergy Unknown Uncoded 08/02/18 07:09 General Stated Complaint: Nk/Back Pain NIC: 4 Review of Systems Review of Systems All systems reviewed & are unremarkable except as noted in HPI and below PFSH Social History Smoking/Tobacco Use Status: Current every day Tobacco Type: cigarettes Drug use: Never Do you feel safe at home: Yes Do you feel safe in your relationship?: Yes Exam Narrative Exam Narrative: 1.Const: Well-nourished, Well-developed, appearing stated age 2.Eyes: PERRL, no conjunctival injection, and symmetrical lids. 3.ENT: Atraumatic external nose and ears. Moist MM. Neck: Symmetric, trachea midline, No thyromegaly. Patient demonstrates good movement of cervical neck. There is no nuchal rigidity, no nuchal tenderness. Negative Kernig's and Brudzinski sign. Ears demonstrate no evidence of otitis media or otitis externa. No tenderness on palpation of the mastoid process. 4.CVS: +S1/S2, No murmurs or gallops. Peripheral pulses 2+ and equal in all extremities. Brisk capillary refill in all extremities. No evidence of carotid or vertebral bruits 5.RESP: Unlabored respiratory effort. Clear to auscultation bilaterally. No wheezes rales or rhonchi 6.GI: Soft, Nontender/Nondistended, No hepatosplenomegaly. No guarding or rebound. 7.MSK: Normocephalic/Atraumatic, Extremities w/o deformity or ttp No cyanosis or clubbing, Normal movement of all extremities. No midline tenderness to palpation over the CTLS spine. Normal ROM in flexion, extension, side bend, and rotation. Patient has +5 out of 5 strength in the lower extremities in dorsiflexion and plantarflexion, knee flexion and extension, hip flexion and extension. There is +2 over 2 dorsalis pedis pulses bilaterally. There is normal sensation to the skin with light touch at the foot, knee, and hip. Normal saddle sensation. Good sensation over the deep sural nerve area bilaterally. Rectal exam deferred. Reflexes are +2 over 4 in the patellar reflex bilaterally. +5 out of 5 strength in the medial, ulnar, radial nerve distribution bilaterally in the hands as well as intact light touch sensation to these dermatomes on the hands. Additionally the patient does have reproducible left paraspinal tenderness over C4-5 and 6. No evidence of redness, abscess, swelling, tenderness, or fluctuance. 8.Skin: Warm, Dry. No rashes or lesions. 9.Neuro: wafer batter mixer II-XII grossly intact. Sensation grossly intact, no focal neurologic deficits. All 6 cardinal planes of vision are fully intact. No evidence of rotatory or vertical nystagmus. The patient demonstrated a normal [id number], good dexterity. There was no evidence of dysdiadochokinesia. Patient was able to ambulate without difficulty. There was no wide-based gait. Romberg, and [id number] are both normal on testing. Sensation was intact bilaterally as well as muscle strength bilaterally for all extremities. Patient was able to verbalize butter cup with no slurring, or miss pronunciation. 10.Psych: (AAO) x3. Appropriate mood and affect Course Vital Signs Temperature 36.6 C 02/07/19 15:06 Pulse 117 H 02/07/19 15:06 Respiratory Rate 16 02/07/19 15:06 Blood Pressure 115/75 02/07/19 15:06 Pulse Oximetry 97 02/07/19 15:06 Temperature 36.6 C 02/07/19 15:06 Temperature Source Skin 02/07/19 15:06 Pulse 117 H 02/07/19 15:06 Respiratory Rate 16 02/07/19 15:06 Blood Pressure 115/75 02/07/19 15:06 Blood Pressure Position Sitting 02/07/19 15:06 Pulse Oximetry 97 02/07/19 15:06 Oxygen Delivery Method Room Air 02/07/19 15:06 Oxygen Flow Rate 0 02/07/19 15:06 Pain Level 10 02/07/19 15:06
--- NOTE | 2019-02-07 15:35 | ED.GENADUL_ITS ---
Discharge Plan Disposition Patient Disposition: HOME Condition: Good Discharge Details Chief Complaint: Nk/Back Pain Clinical Impression: Muscle spasms of neck Primary Care Provider: Jewel Parham ED Provider: Hong Thakur Home Meds and New Rx's Prescriptions: New diazepam [Valium] 5 mg tablet 5 mg PO BID Qty: 6 RF: 0 No Action lamotrigine [Lamictal] 25 MG tablet 25 mg PO DAILY RF: 0 escitalopram oxalate [Lexapro] 20 MG tablet 100 mg PO DAILY RF: 0 Combivent 200 PUFF aerosol 2 puff Inhalation DAILY RF: 0 naproxen 250 MG tablet 250 mg PO PRN PRNRF: 0 nabumetone 500 MG tablet 500 mg PO PRN PRNRF: 0 ProAir HFA 8.5 GM HFA aerosol inhaler 200 puff Inhalation Q4H PRN PRN (Reason: wheeze) Qty: 1 RF: 0 dextroamphetamine-amphetamine [Adderall] 20 mg Tablet 20 mg PO BID RF: 0 levofloxacin [Levaquin] 750 mg Tablet 750 mg PO DAILY Qty: 6 RF: 0 Symbicort 160-4.5 mcg/actuation HFA aerosol inhaler 2 puff IH Q12H Qty: 10.2 RF: 0 prednisone 10 mg tablet 10 mg PO DAILY Qty: 26 RF: 0 Discharge Instructions Instructions: Cervical Sprain (ED) Additional Instructions: Please take the Valium only as needed. Please continue taking Tylenol and ibuprofen as well as your Lidoderm patches. If you notice any worsening of your symptoms, or any new symptoms such as vomiting, diarrhea, fever, chills, shortness of breath, chest pain, numbness, weakness, or fainting , please return immediately to the emergency department for reevaluation. Please follow up with your primary care provider as soon as possible for reassessment and reevaluation. As always, it was a pleasure participating in your medical care today. Referrals: Jewel Parham [Primary Care Provider] - Medical Decision Making This is a pleasant 48-year-old female who presents with 1 week of left-sided neck pain, she describes it as sharp and achy, worse with movement, improved by no NSAIDs or Lidoderm patch. She denies any radiation to her arm, head, or chest. No history of trauma or significant strenuous activity bring about her symptoms. She does demonstrate notable reproducible left cervical pa raspinal pain over see 456. No evidence of neurologic complaints or abnormalities. No carotid or vertebral bruits. No clinical evidence of meningitis. Signs, symptoms, and history appear clinically inconsistent with vertebral artery dissection, carotid artery dissection, or meningitis. Signs and symptoms appear consistent with musculoskeletal sprain or spasm. We will give a local paraspinal block, if this improves her symptoms feel she can be safely discharged. If not we can do a trial of Valium. 6:26 PM Patient was given a trial of Valium, as well as 4 mg of morphine, and after this and the block the patient has near complete resolution of her symptoms. She is got excellent range of motion for her neck, still demonstrates no clinical signs of meningitis. CT Gill of the head neck is negative for any acute process, dissection, lead or tumor per radiology. I did offer lumbar puncture for further diagnostic evaluation, and the patient has refused at this time, initially I think there is no clinical evidence of acute encephalitis or meningitis at this time. The patient has been asking to leave multiple times and that she can go smoke a cigarette. She is actively texting on the phone, and clinically looks very well. With resolution of her symptoms, no clinical signs of significant abnormality on exam I feel she can be safely discharged home. Feel her signs and symptoms are clinically consistent with musculoskeletal spasm. We will give her a trial of Valium for home use, recommend close follow-up with her PCP. I have extensively reviewed the treatment plan and discharge instructions with the patient. I have addressed all patient concerns at this time. The patient was made aware of what symptoms to monitor for that would warrant a return to the emergency department. Discussed the plan with the patient, they demonstrate verbal understanding and agreement with our assessment and plan at this time. [facility] Preliminary Radiology Report Call: [phone] assistance Online chat: [email or web address] Patient Name: BROOK GREWAL Institution Name: [place] [address] Study Type: CTA HEADCTA NECK Ordered As: CTA BRAIN AND NECK Date of Dictation: 07 Feb 2019 EDT Date of Exam: 07 Feb 2019 EDT Account Number: Patient : [id number] Patient Location: UNKNOWN ER Valving Machine Operator: Referring Physician: HONG THAKUR This interpretation is based upon the receipt of 367 images. Page 1 of 3 EXAM: CT Angiography Head With Contrast EXAM DATE/TIME: 02/07/2019 3:40 PM CLINICAL HISTORY: 48 years old, female; Other: Neck to base of head pain; Patient HX: Per PT: Severe pain up neck to base of head; Additional info: Per PT: Neck feels like being hit with hammer when walking TECHNIQUE: Imaging protocol: Axial computed tomographic angiography images of the head with intravenous contrast using CT angiography protocol. Coronal and sagittal reformatted images were subsequently obtained and reviewed. 3D rendering: MIP reconstructed images were created and reviewed. COMPARISON: No relevant prior studies available. FINDINGS: Right internal carotid artery: Unremarkable. Intracranial segment is patent with no significant stenosis. No aneurysm. Right anterior cerebral artery: Unremarkable. No occlusion or significant stenosis. No aneurysm. Right middle cerebral artery: Unremarkable. No occlusion or significant stenosis. No aneurysm. Right posterior cerebral artery: Unremarkable. No occlusion or significant stenosis. No aneurysm. Right vertebral artery: Unremarkable. No occlusion or significant stenosis. No aneurysm. Left internal carotid artery: Unremarkable. Intracranial segment is patent with no significant stenosis. No aneurysm. Left anterior cerebral artery: Unremarkable. No occlusion or significant stenosis. No aneurysm. [facility] Preliminary Radiology Report Page 2 of 3 Left middle cerebral artery: Unremarkable. No occlusion or significant stenosis. No aneurysm. Left posterior cerebral artery: Unremarkable. No occlusion or significant stenosis. No aneurysm. Left vertebral artery: Unremarkable. No occlusion or significant stenosis. No aneurysm. Basilar artery: Unremarkable. No occlusion or significant stenosis. No aneurysm. IMPRESSION: No stenosis or aneurysm. EXAM: CT Angiography Neck With Contrast EXAM DATE/TIME: 02/07/2019 3:40 PM CLINICAL HISTORY: 48 years old, female; Other: Neck to base of head pain; Patient HX: Per PT: Severe pain up neck to base of head; Additional info: Per PT: Neck feels like being hit with hammer when walking TECHNIQUE: Imaging protocol: Axial computed tomographic angiography images of the neck with intravenous contrast using CT angiography protocol. Coronal and sagittal reformatted images were subsequently obtained and reviewed. 3D rendering: MIP reconstructed images were created and reviewed. COMPARISON: No relevant prior studies available. FINDINGS: VASCULATURE: Right common carotid artery: Normal. No significant stenosis. No dissection or occlusion. Right internal carotid artery: Normal. Extracranial segment is patent with no significant stenosis. No dissection or occlusion. Right external carotid artery: Normal. No occlusion or significant stenosis. Right vertebral artery: Normal. No significant stenosis. No dissection or occlusion. Left common carotid artery: Arises from the brachiocephalic trunk. No significant stenosis. No dissection or occlusion. Left internal carotid artery: Normal. Extracranial segment is patent with no significant stenosis. No dissection or occlusion. Left external carotid artery: Normal. No occlusion or significant stenosis. Left vertebral artery: Normal. No significant stenosis. No dissection or occlusion. [facility] Preliminary Radiology Report PARKING WORKER (QA) DISCREPANCY? If there is a discrepancy between the preliminary and final interpretation, please notify [facility] via [email or web address]. If you do not have access to our QA portal, call our QA team at [phone] CONFIDENTIALITY STATEMENT This report is intended only for the use of the referring physician, and only in accordance with law, If you received this in error, call [phone] Page 3 of 3 NECK: Bones/joints: No acute fracture. Soft tissues: Normal. No significant soft tissue swelling. IMPRESSION: No stenosis or aneurysm. No evidence of acute dissection. COMMENT: Reference per NASCET criteria for degree of stenosis: Mild: less than 50% stenosis. Moderate: 50- 69% stenosis. Severe: 70-94% stenosis. Near occlusion: 95-99% stenosis. Thank you for allowing us to participate in the care of your patient. Dictated and Authenticated by: Rogerio Kenny MD 02/07/2019 6:20 PM Eastern Time ([place] & [place]) HPI General Date/Time Provider Initiated Documentation: 02/07/19 15:15 . HPI Narrative: This is a 48-year-old female with a past medical history of COPD, who presents today for evaluation of neck pain. Patient states that for the last week she has had neck pain, primarily on the left side of her neck. It started when she woke up in the morning. She describes it as sharp and achy in nature. Worse with movement in any direction. It is located on the left aspect of her lower neck right below the left component of the occiput. She denies any radiation to the arms, shoulders, or head. She denies any significant headache. She denies any significant numbness or tingling. She denies any tearing sensation, ripping sensation, she denies any trauma or significant event that brought about her initial symptoms. She denies any IV drug use. She states that she has taken every form of NSAID that there is, including a Lidoderm patch and has had no significant improvement of her symptoms with this. She has no other complaints at this time. She denies any previous neck surgeries. Related Data Home Medications Medication Instructions Recorded Confirmed escitalopram oxalate [Lexapro] 100 mg PO DAILY 05/11/17 11/16/18 lamotrigine [Lamictal] 25 mg PO DAILY 05/11/17 11/16/18 Combivent 2 puff INHALATION DAILY 05/29/17 11/16/18 nabumetone 500 mg PO PRN PRN 09/11/17 11/16/18 naproxen 250 mg PO PRN PRN 09/11/17 11/16/18 ProAir HFA 200 puff INHALATION Q4H PRN PRN #1 03/07/18 11/16/18 [email or web address] budesonide-formoterol [Symbicort] 2 puff IH Q12H #10.2 gm 11/16/18 dextroamphetamine-amphetamine 20 mg PO BID 11/16/18 11/16/18 [Adderall] levofloxacin [Levaquin] 750 mg PO DAILY #6 tab 11/16/18 prednisone 10 mg PO DAILY #26 tab 11/16/18 diazepam [Valium] 5 mg PO BID #6 tab 02/07/19 Previous Rx's Medication Instructions Recorded ProAir HFA 200 puff INHALATION Q4H PRN PRN #1 03/07/18 hfa.[email or web address] budesonide-formoterol [Symbicort] 2 puff IH Q12H #10.2 gm 11/16/18 levofloxacin [Levaquin] 750 mg PO DAILY #6 tab 11/16/18 prednisone 10 mg PO DAILY #26 tab 02/12/19 diazepam [Valium] 5 mg PO BID #6 tab 02/07/19 Allergies Allergy/AdvReac Type Severity Reaction Status Date / Time azithromycin [From Zithromax] Allergy Severe hives Unverified 08/02/18 07:09 aripiprazole Allergy Intermediate Nausea Unverified 08/02/18 07:09 chocolate flavor Allergy Unknown Unverified 08/02/18 07:09 coconut Allergy Unknown Unverified 08/02/18 07:09 erythromycin base Allergy Unknown Unverified 08/02/18 07:09 mushroom Allergy Unknown Unverified 08/02/18 07:09 pollen extracts Allergy Unknown Unverified 08/02/18 07:09 nicotine AdvReac Other (See Unverified 08/02/18 07:09 Comment) DUST Allergy Unknown Uncoded 08/02/18 07:09 General Stated Complaint: Nk/Back Pain NIC: 4 Review of Systems Review of Systems All systems reviewed & are unremarkable except as noted in HPI and below PFSH Social History Smoking/Tobacco Use Status: Current every day Tobacco Type: cigarettes Drug use: Never Do you feel safe at home: Yes Do you feel safe in your relationship?: Yes Exam Narrative Exam Narrative: 1.Const: Well-nourished, Well-developed, appearing stated age 2.Eyes: PERRL, no conjunctival injection, and symmetrical lids. 3.ENT: Atraumatic external nose and ears. Moist MM. Neck: Symmetric, trachea midline, No thyromegaly. Patient demonstrates good movement of cervical neck. There is no nuchal rigidity, no nuchal tenderness. Negative Kernig's and Brudzinski sign. Ears demonstrate no evidence of otitis media or otitis externa. No tenderness on palpation of the mastoid process. 4.CVS: +S1/S2, No murmurs or gallops. Peripheral pulses 2+ and equal in all extremities. Brisk capillary refill in all extremities. No evidence of carotid or vertebral bruits 5.RESP: Unlabored respiratory effort. Clear to auscultation bilaterally. No wheezes rales or rhonchi 6.GI: Soft, Nontender/Nondistended, No hepatosplenomegaly. No guarding or rebound. 7.MSK: Normocephalic/Atraumatic, Extremities w/o deformity or ttp No cyanosis or clubbing, Normal movement of all extremities. No midline tenderness to palpation over the CTLS spine. Normal ROM in flexion, extension, side bend, and rotation. Patient has +5 out of 5 strength in the lower extremities in dorsiflexion and plantarflexion, knee flexion and extension, hip flexion and extension. There is +2 over 2 dorsalis pedis pulses bilaterally. There is normal sensation to the skin with light touch at the foot, knee, and hip. Normal saddle sensation. Good sensation over the deep sural nerve area bilaterally. Rectal exam deferred. Reflexes are +2 over 4 in the patellar reflex bilaterally. +5 out of 5 strength in the medial, ulnar, radial nerve distribution bilaterally in the hands as well as intact light touch sensation to these dermatomes on the hands. Additionally the patient does have reproducible left paraspinal tenderness over C4-5 and 6. No evidence of redness, abscess, swelling, tenderness, or fluctuance. 8.Skin: Warm, Dry. No rashes or lesions. 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 Sensation grossly intact, no focal neurologic deficits. All 6 cardinal planes of vision are fully intact. No evidence of rotatory or vertical nystagmus. The patient demonstrated a normal [id number], good dexterity. There was no evidence of dysdiadochokinesia. Patient was able to ambulate without difficulty. There was no wide-based gait. Romberg, and [id number] are both normal on testing. Sensation was intact bilaterally as well as muscle strength bilaterally for all extremities. Patient was able to verbalize butter cup with no slurring, or miss pronunciation. 10.Psych: (AAO) x3. Appropriate mood and affect Course Vital Signs Temperature 36.6 C 02/07/19 15:06 Pulse 117 H 02/07/19 15:06 Respiratory Rate 16 02/07/19 15:06 Blood Pressure 115/75 02/07/19 15:06 Pulse Oximetry 97 02/07/19 15:06 Temperature 36.6 C 02/07/19 15:06 Temperature Source Skin 02/07/19 15:06 Pulse 117 H 02/07/19 15:06 Respiratory Rate 16 02/07/19 15:06 Blood Pressure 115/75 02/07/19 15:06 Blood Pressure Position Sitting 02/07/19 15:06 Pulse Oximetry 97 02/07/19 15:06 Oxygen Delivery Method Room Air 02/07/19 15:06 Oxygen Flow Rate 0 02/07/19 15:06 Pain Level 10 02/07/19 15:06
--- NOTE | 2019-02-07 15:37 | DI.CT_ITS ---
SYMPTOM/DIAGNOSIS: LT NECK PAIN, ? DISSECTION HEAD AND NECK CTA: CT angiography was performed with multi slice acquisition and multi planar and 3D reconstruction. NECK: Routine post contrast examination was performed. The visualized thoracic aorta is unremarkable. The common carotid arteries are unremarkable. No evidence of dissection, occlusion or significant stenosis. The external carotid arteries are unremarkable without evidence of occlusion or significant stenosis. The internal carotid arteries are unremarkable. No evidence of dissection, occlusion or significant stenosis. The vertebral arteries are unremarkable. No evidence of dissection, aneurysm or occlusion. No evidence of significant stenosis is present. No acute abnormality is seen in the soft tissues. The lung apices show no acute abnormality. Degenerative changes are seen in the spine, particularly at C 5-6 and C 6-7. IMPRESSION: No evidence of acute arterial dissection. No significant stenosis or aneurysm. HEAD: The distal internal carotid arteries show no evidence of dissection, aneurysm or occlusion. No significant stenosis is seen. The anterior cerebral arteries are unremarkable without evidence of aneurysm, occlusion or significant stenosis. The middle cerebral arteries are unremarkable without evidence of occlusion, aneurysm or significant stenosis. The posterior cerebral arteries are unremarkable without evidence of occlusion, aneurysm or significant stenosis. The distal vertebral arteries are unremarkable. No evidence of occlusion, dissection or significant stenosis is seen. No aneurysm is present. The basilar artery is unremarkable without evidence of occlusion, aneurysm or significant stenosis. IMPRESSION: No acute arterial injury. No evidence of significant stenosis or aneurysm.
[2019-02-07] MEDS: methylPREDNISolone SUCC 125 MG VIAL IVP (15:57)
[2019-02-07] MEDS: diazePAM 10 MG/2 ML SYR 5 MG IVP (15:57)
[2019-02-07 15:58] LABS: Abs Immature Grans 0.02 k/cumm (0.0-0.09); Absolute Basophil Count 0.05 k/cumm (0.0-0.2); Absolute Monocyte Count 0.81 k/cumm (0.11-0.7); Basophils % 0.4; Eosinophils % 2.8; HCT 47.1 % (36.0-46.0); HGB 16.5 g/dL (12.0-15.5); Immature Grans % 0.1; Lymphocytes % 17.8; Mean Corpuscular Hemoglobin 32.5 pg (27.0-33.0); Mean Corpuscular Volume 92.9 fL (80-95); Monocytes % 6.1; Neutrophils % 72.8; Platelet Count 369 x1000/uL (130-400); RBC 5.07 m/cumm (4.00-5.20); RBC Distribution Width 12.3 % (11.7-14.6); White Blood Cell Count 13.34 k/cumm (4.4-10.8)
[2019-02-07] MEDS: Ketorolac 30 MG/ML VIAL IVP (15:58)
[2019-02-07 16:01] LABS: Absolute Eosinophil Count 0.37 k/cumm (0.0-0.7); Absolute Lymphocyte Count 2.37 k/cumm (1.2-3.4); Absolute Neutrophil Count 9.71 k/cumm (1.2-6.7)
[2019-02-07 16:15] LABS: Anion Gap 9.8 mmol/L (3-11); BUN 8 mg/dL (7-18); CO2 23.2 mmol/L (21.0-32.0); CREATININE 0.64 mg/dL (0.55-1.02); Calcium 8.8 mg/dL (8.5-10.1); Chloride 100 mmol/L (98-107); Glucose 207 mg/dL (70-100); Potassium 3.9 mmol/L (3.5-5.1); Sodium 133 mmol/L (136-145)
[2019-02-07] MEDS: MORPHine 10 MG/ML VIAL 4 MG IVP (17:17)
[2019-02-07] MEDS: Omnipaque 350 MG/ML 100 ML BTL IJ (17:45)
--- NOTE | 2019-02-07 18:21 | DI.VRAD_ITS ---
EXAM: CT Angiography Head With Contrast EXAM DATE/TIME: 02/07/2019 3:40 PM CLINICAL HISTORY: 48 years old, female; Other: Neck to base of head pain; Patient HX: Per PT: Severe pain up neck to base of head; Additional info: Per PT: Neck feels like being hit with hammer when walking TECHNIQUE: Imaging protocol: Axial computed tomographic angiography images of the head with intravenous contrast using CT angiography protocol. Coronal and sagittal reformatted images were subsequently obtained and reviewed. 3D rendering: MIP reconstructed images were created and reviewed. COMPARISON: No relevant prior studies available. FINDINGS: Right internal carotid artery: Unremarkable. Intracranial segment is patent with no significant stenosis. No aneurysm. Right anterior cerebral artery: Unremarkable. No occlusion or significant stenosis. No aneurysm. Right middle cerebral artery: Unremarkable. No occlusion or significant stenosis. No aneurysm. Right posterior cerebral artery: Unremarkable. No occlusion or significant stenosis. No aneurysm. Right vertebral artery: Unremarkable. No occlusion or significant stenosis. No aneurysm. Left internal carotid artery: Unremarkable. Intracranial segment is patent with no significant stenosis. No aneurysm. Left anterior cerebral artery: Unremarkable. No occlusion or significant stenosis. No aneurysm. Left middle cerebral artery: Unremarkable. No occlusion or significant stenosis. No aneurysm. Left posterior cerebral artery: Unremarkable. No occlusion or significant stenosis. No aneurysm. Left vertebral artery: Unremarkable. No occlusion or significant stenosis. No aneurysm. Basilar artery: Unremarkable. No occlusion or significant stenosis. No aneurysm. IMPRESSION: No stenosis or aneurysm. EXAM: CT Angiography Neck With Contrast EXAM DATE/TIME: 02/07/2019 3:40 PM CLINICAL HISTORY: 48 years old, female; Other: Neck to base of head pain; Patient HX: Per PT: Severe pain up neck to base of head; Additional info: Per PT: Neck feels like being hit with hammer when walking TECHNIQUE: Imaging protocol: Axial computed tomographic angiography images of the neck with intravenous contrast using CT angiography protocol. Coronal and sagittal reformatted images were subsequently obtained and reviewed. 3D rendering: MIP reconstructed images were created and reviewed. COMPARISON: No relevant prior studies available. FINDINGS: VASCULATURE: Right common carotid artery: Normal. No significant stenosis. No dissection or occlusion. Right internal carotid artery: Normal. Extracranial segment is patent with no significant stenosis. No dissection or occlusion. Right external carotid artery: Normal. No occlusion or significant stenosis. Right vertebral artery: Normal. No significant stenosis. No dissection or occlusion. Left common carotid artery: Arises from the brachiocephalic trunk. No significant stenosis. No dissection or occlusion. Left internal carotid artery: Normal. Extracranial segment is patent with no significant stenosis. No dissection or occlusion. Left external carotid artery: Normal. No occlusion or significant stenosis. Left vertebral artery: Normal. No significant stenosis. No dissection or occlusion. NECK: Bones/joints: No acute fracture. Soft tissues: Normal. No significant soft tissue swelling. IMPRESSION: No stenosis or aneurysm. No evidence of acute dissection. COMMENT: Reference per NASCET criteria for degree of stenosis: Mild: less than 50% stenosis. Moderate: 50-69% stenosis. Severe: 70-94% stenosis. Near occlusion: 95-99% stenosis. Dictated and Authenticated by: Rogerio Kenny MD. Ordering:SAMSON Pitts MD
== END 2019-02-07 18:38 | disposition home or self-care (01) ==
PROVIDERS: Emergency Provider Student in an Organized Health Care Education/Training Program; PCP Family Medicine
DX: M62.838 Other muscle spasm (principal); J44.9 Chronic obstructive pulmonary disease, unspecified; F17.210 Nicotine dependence, cigarettes, uncomplicated
CPT/HCPCS: 36415; 70496; 70498; 80048; 96374; 96375; 99285; 85025; 99284; J1885; J2270; J2930; J3360; J3490

== ENCOUNTER 2019-05-24 00:45 | Observation (INO) | payer MEDICARE, MEDICAID, SELFPAY ==
[2019-05-24 00:42] VITALS: BP 130/90; PULSE 104; RESP 20; TEMP 36.5; O2SAT 97
--- NOTE | 2019-05-24 00:51 | W.ED.GENAD ---
Discharge Plan Disposition Patient Disposition: [facility] INPATIENT Condition: Good Discharge Details Chief Complaint: Abd Prob Clinical Impression: Colitis, Ileus Admit Date/Time: 05/24/19 02:46 Admit Provider: Nighat Bustamante Attending Provider: Nighat Bustamante Primary Care Provider: Jewel Parham ED Provider: Hong Dominguez Medical Decision Making This is a 49-year-old female who presents today for evaluation of abdominal pain. She has a past medical history concerning for COPD, Crohn's disease. Physical exam demonstrates notable right lower quadrant abdominal tenderness that radiates to the right groin. Positive Rovsing sign. However interestingly she has no pain with obturator or psoas signs. Mild positivity of pain with heel strike test. She denies any vaginal discharge or bleeding. Denies any bloody stools. Differential includes appendicitis, Crohn's exacerbation, fistula or abscess. We will rehydrate, treat the patient's pain, get CT scan for further assessment and reassess. Of note currently she does not see any gastroenterology specialist. 2:[address] scan has returned, there is evidence of mild equivocal wall thickening of the mid transverse colon, which may represent mild Crohn's colitis. There also a few mildly dilated loops of small bowel in the left abdomen which may represent ileus, but early obstruction cannot be excluded. Patient has been unable to tolerate any solid foods, but is able to tolerate small sips of water. 8 mg of morphine have been given and patient still has notable pain. However pain is not out of proportion, and inconsistent with acute mesenteric ischemia. With the patient's inability to tolerate food or pills, in addition to her continued pain with concern for ileus versus obstruction in conjunction with mild colitis I do feel that admission would be appropriate. I did contact surgeon on-call Dr. Bustamante, she agrees with the assessment and plan. She does recommend giving a dose of steroids here in the ED. We will add 125 Solu-Medrol. I have extensively reviewed the treatment plan and discharge instructions with the patient. I have addressed all patient concerns at this time. The patient was made aware of what symptoms to monitor for that would warrant a return to the emergency department. Discussed the plan with the patient, they demonstrate verbal understanding and agreement with our assessment and plan at this time. FINDINGS: Liver: Fatty liver. Gallbladder and bile ducts: Normal. No calcified stones. No ductal dilation. Pancreas: Normal. No ductal dilation. Spleen: Normal. No splenomegaly. Adrenals: Normal. No mass. Kidneys and ureters: 7 mm left renal hypodensity at dome likely cyst but too small to characterize. No stones or hydronephrosis. Stomach and bowel: There are a few dilated loops of small bowel up to 2.4 cm in the left lower abdomen likely related to ileus. Equivocal wall thickening of the mid transverse colon, could reflect luminal collapse or mild colitis Appendix: Normal appendix. Intraperitoneal space: No new inflammation or free fluid. No free air. Previously seen small fluid collection adjacent to the sigmoid colon is no longer identified. Vasculature: Normal. No abdominal aortic aneurysm. Lymph nodes: Small right lower quadrant node under a centimeter in size. Bladder: Bladder is contracted. Reproductive: Lobular uterus, possibly related to myomatous. Bilateral tubal ligation clips. 1.6 cm right ovarian cyst. Mild left hydrosalpinx similar to the prior study. Left ovarian 9 mm follicular cyst. Bones/joints: Stable grade 1 anterolisthesis of L5 on S1 with bilateral L5 pars defects. Soft tissues: Unremarkable. IMPRESSION: Few mildly dilated loops of small bowel in the left abdomen which may be related to ileus. Early obstruction cannot be excluded but is felt to be unlikely. Equivocal wall thickening of the mid transverse colon, could reflect luminal collapse or mild colitis Fatty liver. Stable mild left hydrosalpinx and bilateral small ovarian follicular cysts. Thank you for allowing us to participate in the care of your patient. Dictated and Authenticated by: Vickie Mckeon MD HPI General Date/Time Provider Initiated Documentation: 05/24/19 00:48. HPI Narrative: This is a 49-year-old female with a past medical history of COPD, Crohn's disease, previous abscesses of the sigmoid colon, bipolar disease, who presents today for evaluation of abdominal pain. Patient states that this morning she developed right lower quadrant abdominal pain which eventually radiated to her right groin. She had one episode of vomiting is been averse to food ever since. She admits to regular diarrhea with her Crohn's disease. She denies any hematochezia melena or acholic stool. She denies any fever or chills. She states that this feels very different than her regular Crohn's attacks. She denies any history of appendectomy. She has had a tubal ligation before, as well as multiple colonoscopies. She denies any other complaints or modifying factors at this time. Related Data Home Medications Medication Instructions Recorded Confirmed escitalopram oxalate [Lexapro] 100 mg PO DAILY 05/11/17 05/24/19 lamotrigine [Lamictal] 25 mg PO DAILY 05/11/17 05/24/19 Combivent 2 puff INHALATION DAILY 05/29/17 05/24/19 nabumetone 500 mg PO PRN PRN 09/11/17 05/24/19 albuterol sulfate [ProAir HFA] 200 puff INHALATION Q4H PRN PRN #1 03/07/18 05/24/19 hfa.[email or web address] budesonide-formoterol [Symbicort] 2 puff IH Q12H #10.2 gm 11/16/18 05/24/19 dextroamphetamine-amphetamine 15 mg PO DAILY 05/24/19 05/24/19 [Adderall] diazepam 5 mg PO 05/24/19 Previous Rx's Medication Instructions Recorded albuterol sulfate [ProAir HFA] 200 puff INHALATION Q4H PRN PRN #1 03/07/18 hfa.[email or web address].ad budesonide-formoterol [Symbicort] 2 puff IH Q12H #10.2 gm 11/16/18 Allergies Allergy/AdvReac Type Severity Reaction Status Date / Time azithromycin [From Zithromax] Allergy Severe hives Unverified 05/24/19 00:50 aripiprazole Allergy Intermediate Nausea Unverified 05/24/19 00:50 chocolate flavor Allergy Unknown Unverified 05/24/19 00:50 coconut Allergy Unknown Unverified 05/24/19 00:50 erythromycin base Allergy Unknown Unverified 05/24/19 00:50 mushroom Allergy Unknown Unverified 05/24/19 00:50 pollen extracts Allergy Unknown Unverified 05/24/19 00:50 nicotine AdvReac Other (See Unverified 05/24/19 00:50 Comment) DUST Allergy Unknown Uncoded 05/24/19 00:50 General Stated Complaint: Abd Prob NIC: 3 Review of Systems Review of Systems All systems reviewed & are unremarkable except as noted in HPI and below PFSH Social History Smoking/Tobacco Use Status: Current every day Tobacco Type: cigarettes Alcohol Intake: never Drug use: Never Substance use type: does not use Do you feel safe at home: Yes Do you feel safe in your relationship?: Yes Exam Narrative Exam Narrative: 1.Const: Well-nourished, Well-developed, appearing stated age 2.Eyes: PERRL, no conjunctival injection, and symmetrical lids. 3.ENT: Atraumatic external nose and ears. Moist MM. Neck: Symmetric, trachea midline, No thyromegaly. 4.CVS: +S1/S2, No murmurs or gallops. Peripheral pulses 2+ and equal in all extremities. Brisk capillary refill in all extremities. 5.RESP: Unlabored respiratory effort. Clear to auscultation bilaterally. No wheezes rales or rhonchi 6.GI: Soft, nondistended, no guarding. Notable right lower quadrant abdominal tenderness. Positive Rovsing sign. Negative obturator and psoas sign. Mild to moderate pain at McBurney's point, negative Tavares sign. Mild suprapubic tenderness. Palpation of the right and left inguinal canal demonstrates no evidence of hernia or bulge. No CVA tenderness. 7.MSK: Normocephalic/Atraumatic, Extremities w/o deformity or ttp No cyanosis or clubbing, Normal movement of all extremities 8.Skin: Warm, Dry. No rashes or lesions. 9.Neuro: sorter packer II-XII grossly intact. Sensation grossly intact, no focal neurologic deficits. 10.Psych: (AAO) x3. Appropriate mood and affect Course Vital Signs Temperature 36.5 C 05/24/19 00:42 Pulse 104 H 05/24/19 00:42 Respiratory Rate 05/24/19 00:42 Blood Pressure 130/90 05/24/19 00:42 Pulse Oximetry 97 05/24/19 00:42 Temperature 36.5 C 05/24/19 00:42 Temperature Source Tympanic 05/24/19 00:42 Pulse 104 H 05/24/19 00:42 Respiratory Rate 20 05/24/19 00:42 Blood Pressure 130/90 05/24/19 00:42 Pulse Oximetry 97 05/24/19 00:42 Pain Level 10 05/24/19 00:42
[2019-05-24 01:11] LABS: Lactate 1.7 mmol/L (0.6-1.4)
[2019-05-24 01:13] LABS: Abs Immature Grans 0.01 k/cumm (0.0-0.09); Absolute Basophil Count 0.04 k/cumm (0.0-0.2); Absolute Eosinophil Count 0.36 k/cumm (0.0-0.7); Absolute Lymphocyte Count 3.82 k/cumm (1.2-3.4); Absolute Monocyte Count 0.69 k/cumm (0.11-0.7); Absolute Neutrophil Count 5.19 k/cumm (1.2-6.7); Basophils % 0.4; Eosinophils % 3.6; HCT 44.1 % (36.0-46.0); HGB 15.4 g/dL (12.0-15.5); Immature Grans % 0.1; Lymphocytes % 37.8; Mean Corp. HGB Concentration 34.9 g/dL (32.0-36.0); Mean Corpuscular Hemoglobin 32.7 pg (27.0-33.0); Mean Corpuscular Volume 93.6 fL (80-95); Mean Platelet Volume 9.9 fL (8.0-11.0); Monocytes % 6.8; Neutrophils % 51.3; Platelet Count 407 x1000/uL (130-400); RBC 4.71 m/cumm (4.00-5.20); RBC Distribution Width 11.9 % (11.7-14.6); White Blood Cell Count 10.11 k/cumm (4.4-10.8)
[2019-05-24] MEDS: MORPHine 10 MG/ML VIAL 4 MG IVP ×2 (01:14→02:12)
[2019-05-24] MEDS: Normal Saline 1,000 ML 1000 ML IV ×2 (01:14→02:50)
[2019-05-24 01:15] VITALS: BP 116/99; PULSE 89; RESP 18; O2SAT 98
[2019-05-24 01:30] LABS: Bilirubin Negative (Negative); Blood Trace-lysed (Negative); Clarity Clear (Clear); Glucose >=1000 mg/dL (Negative); Ketones 15 mg/dL (Negative); Leukocyte Esterase Negative (Negative); Nitrite Negative (Negative)
[2019-05-24 01:37] LABS: ALT 25 U/L (12-78); AST 10 U/L (15-37); Albumin 3.8 g/dL (3.4-5.0); Alkaline Phosphatase 110 U/L (46-116); Anion Gap 8.9 mmol/L (3-11); BUN 12 mg/dL (7-18); Bilirubin, Total 0.2 mg/dL (0.2-1.0); CO2 29.1 mmol/L (21.0-32.0); CREATININE 0.75 mg/dL (0.55-1.02); Calcium 9.3 mg/dL (8.5-10.1); Chloride 100 mmol/L (98-107); Glucose 257 mg/dL (70-100); Lipase 344 U/L (73-393); Potassium 3.9 mmol/L (3.5-5.1); Sodium 138 mmol/L (136-145); Total Protein 7.9 g/dL (6.4-8.2)
[2019-05-24 01:39] LABS: Bacteria Rare HPF (Negative); C & S Indicated? No; Casts Negative LPF (Negative); Crystals Few Amorphous HPF (Negative); Epithelial Cells Rare HPF (Negative); Mucus Negative (Negative); Other Cells Negative (Negative); WBC 0-2 HPF (0-5)
--- NOTE | 2019-05-24 01:40 | DI.CT_ITS ---
SYMPTOM/DIAGNOSIS: RLQ ABD PAIN, CROHN'S DISEASE ABDOMINAL AND PELVIC CT: 05/24 CT examination of the abdomen and pelvis was performed with a bolus infusion of 100 cc Omnipaque 350. Note is made of bilateral L5 spondylolysis with spondylolisthesis of about 15% of the vertebral width of L5 on S1. Images obtained through the lung bases are unremarkable. Liver, spleen and pancreas appear normal. No biliary dilatation. No gallbladder abnormality by CT criteria. Adrenals and kidneys appear normal. No evidence of urinary tract calcification or obstruction. No significant vascular abnormality seen in the abdomen or pelvis. No significant abdominal wall hernia seen. No adenopathy identified. There are a few mildly dilated loops of small bowel in the left upper quadrant, scattered regions of mild small bowel wall thickening and colonic wall thickening may be present as well raising the possibility of enteritis. No evidence of obstruction. There are bilateral tubal ligation clips and there is a small quantity of fluid in the left Fallopian tube. The findings were similar on previous CT of 04/27/17. No acute process. Appendix is normal. No evidence of diverticulitis CONCLUSION: Findings raising the possibility of enteritis. No other significant acute findings, question mild hepatic steatosis.
[2019-05-24] MEDS: Omnipaque 350 MG/ML 100 ML BTL IJ (01:43)
--- NOTE | 2019-05-24 02:24 | DI.VRAD_ITS ---
EXAM: CT Abdomen and Pelvis With Contrast EXAM DATE/TIME: 05/24/2019 12:51 AM CLINICAL HISTORY: 49 years old, female; Abdominal pain; Localized; Right lower quadrant (rlq); Patient HX: Rlq pain, HX crohn's disease TECHNIQUE: Imaging protocol: Axial computed tomography images of the abdomen and pelvis with intravenous contrast. Coronal and sagittal reformatted images were created and reviewed. Radiation optimization: All CT scans at this facility use at least one of these dose optimization techniques: automated exposure control; mA and/or kV adjustment per patient size (includes targeted exams where dose is matched to clinical indication); or iterative reconstruction. Contrast material: OMNIPAQUE 350;Contrast volume: 100 ml;Contrast route: IV; COMPARISON: CT ABD PELVIS WITH CONTRAST 04/27/2017 6:21 PM FINDINGS: Liver: Fatty liver. Gallbladder and bile ducts: Normal. No calcified stones. No ductal dilation. Pancreas: Normal. No ductal dilation. Spleen: Normal. No splenomegaly. Adrenals: Normal. No mass. Kidneys and ureters: 7 mm left renal hypodensity at dome likely cyst but too small to characterize. No stones or hydronephrosis. Stomach and bowel: There are a few dilated loops of small bowel up to 2.4 cm in the left lower abdomen likely related to ileus. Equivocal wall thickening of the mid transverse colon, could reflect luminal collapse or mild colitis Appendix: Normal appendix. Intraperitoneal space: No new inflammation or free fluid. No free air. Previously seen small fluid collection adjacent to the sigmoid colon is no longer identified. Vasculature: Normal. No abdominal aortic aneurysm. Lymph nodes: Small right lower quadrant node under a centimeter in size. Bladder: Bladder is contracted. Reproductive: Lobular uterus, possibly related to myomatous. Bilateral tubal ligation clips. 1.6 cm right ovarian cyst. Mild left hydrosalpinx similar to the prior study. Left ovarian 9 mm follicular cyst. Bones/joints: Stable grade 1 anterolisthesis of L5 on S1 with bilateral L5 pars defects. Soft tissues: Unremarkable. IMPRESSION: Few mildly dilated loops of small bowel in the left abdomen which may be related to ileus. Early obstruction cannot be excluded but is felt to be unlikely. Equivocal wall thickening of the mid transverse colon, could reflect luminal collapse or mild colitis Fatty liver. Stable mild left hydrosalpinx and bilateral small ovarian follicular cysts. Dictated and Authenticated by: Vickie Mckeon MD. Ordering:SAMSON Pitts MD
[2019-05-24] MEDS: ACETAMINOPHEN 1,000 MG/100 ML BTL 400 MG IVPB (02:50)
[2019-05-24] MEDS: methylPREDNISolone SUCC 125 MG VIAL IVP (02:50)
[2019-05-24 03:17] VITALS: BP 119/76; PULSE 57; RESP 18; O2SAT 98
[2019-05-24 03:35] VITALS: BP 122/79; PULSE 54; RESP 16; TEMP 35.7; O2SAT 95
[2019-05-24] MEDS: HYDROmorphone 2 MG/ML VIAL IVP ×2 (04:29→06:29)
[2019-05-24] MEDS: Normal Saline Flush 10 ML SYR IVP ×4 (04:29→10:25)
[2019-05-24] MEDS: Normal Saline 1,000 ML 125 ML IV (04:36)
--- NOTE | 2019-05-24 06:24 | HPE_ITS ---
Date of service: 05/24/19 Time of Service: 06:25 Assessment and Plan (1) Crohns disease: Current visit: No Status: None A\\ ? Mild Crohns disease on CT scan. PAin and increase in Diarrhea P\\ Start prednisone 40 mg daily and taper over 4 weeks Clear liquids and advance as tolerated Follow up with PCP [place] [facility] [place] [facility] [place]ifiers: Gastrointestinal tract location: large intestine Digestive disease complication type: without complication Qualified Code(s): K50.10 - Crohn's disease of large intestine without complications History of Present Illness Narrative: This is a 49-year-old female with a past medical history of COPD, Crohn's disease, previous abscesses of the sigmoid colon, bipolar disease, who presents today for evaluation of abdominal pain. Patient states that this morning she developed right lower quadrant abdominal pain which eventually radiated to her right groin. She had one episode of vomiting is been averse to food ever since. She admits to regular diarrhea with her Crohn's disease. She denies any hematochezia melena or acholic stool. She denies any fever or chills. She states that this feels very different than her regular Crohn's attacks. She denies any history of appendectomy. She has had a tubal ligation before, as well as multiple colonoscopies. This morning the patient feels better. Having liquid stools without blood. Looks very comfortable and not in pain. Patient was being followed by GI at [place] but her physician left. Is not being treated for Crohns at this time. Patient still smoking. States she has 7-9 Liquid stools per day. Review of Systems Constitutional Denies fever(s) and Denies weight loss Eyes Reports change in vision ENT Denies dysphagia Cardiovascular Denies chest pain, Denies chest pain at rest, Denies irregular heart rhythm, Denies claudication, Denies dyspnea and Denies dyspnea on exertion Respiratory Denies cough, Denies dyspnea and Denies dyspnea on exertion Gastrointestinal Reports as per HPI and Denies dysphagia [facility] Medical History Abscess of sigmoid colon Bipolar affective disorder Bleeding external hemorrhoids Borderline personality disorder COPD (chronic obstructive pulmonary disease) Crohns disease DDD (degenerative disc disease), lumbosacral Depression with anxiety Disassociation disorder Major depressive disorder PTSD (post-traumatic stress disorder) Surgical History Exam under Anesthesia (09/15/17) Social History Smoking/Tobacco Use Status: Current every day Tobacco Type: cigarettes Alcohol Intake: never Drug use: Never Substance use type: does not use Do you feel safe at home: Yes Do you feel safe in your relationship?: Yes Meds Home Medications Medication Instructions Recorded Confirmed Type escitalopram oxalate [Lexapro] 100 mg PO DAILY 05/11/17 05/24/19 History lamotrigine [Lamictal] 25 mg PO DAILY 05/11/17 05/24/19 History Combivent 2 puff INHALATION DAILY 05/29/17 05/24/19 History nabumetone 500 mg PO PRN PRN 09/11/17 05/24/19 History albuterol sulfate [ProAir HFA] 200 puff INHALATION Q4H PRN PRN #1 03/07/18 05/24/19 Rx hfa.aer.ad budesonide-formoterol [Symbicort] 2 puff IH Q12H #10.2 gm 11/16/18 05/24/19 Rx dextroamphetamine-amphetamine 15 mg PO DAILY 05/24/19 05/24/19 History [Adderall] diazepam 5 mg PO 05/24/19 History Allergies Allergy/AdvReac Type Severity Reaction Status Date / Time azithromycin [From Zithromax] Allergy Severe hives Unverified 05/24/19 00:50 aripiprazole Allergy Intermediate Nausea Unverified 05/24/19 00:50 chocolate flavor Allergy Unknown Unverified 05/24/19 00:50 coconut Allergy Unknown Unverified 05/24/19 00:50 erythromycin base Allergy Unknown Unverified 05/24/19 00:50 mushroom Allergy Unknown Unverified 05/24/19 00:50 pollen extracts Allergy Unknown Unverified 05/24/19 00:50 nicotine AdvReac Other (See Unverified 05/24/19 00:50 Comment) DUST Allergy Unknown Uncoded 05/24/19 00:50 Exam Const General: cooperative, healthy appearing and comfortable Orientation: alert and oriented x3 HENMT Head: normocephalic and atraumatic Resp Effort & Inspection: normal respiratory effort Auscultation: clear to auscultation bilaterally Cardio Rate: regular rate Rhythm: regular rhythm Heart Sounds: no gallops, no murmurs and no rubs GI Inspection: normal to inspection and non-distended Palpation: soft, no hepatosplenomegaly and nontender Auscultation: normal bowel sounds Results Labs : 05/24/19 01:04 05/24/19 01:04 Laboratory Results - last 24 hr 05/24/19 05/24/19 05/24/19 00:55 01:04 01:04 WBC RBC Hgb Hct MCV MCH MCHC RDW Plt Count MPV Immature Gran % Neutrophils % Lymphocytes % Monocytes % Eosinophils % Basophils % Absolute Neutrophils Absolute Lymphocytes Absolute Monocytes Absolute Eosinophils Absolute Basophils Sodium 138 Potassium 3.9 Chloride 100 Carbon Dioxide 29.1 Anion Gap 8.9 BUN 12 Creatinine 0.75 Estimated GFR/1.73 m2 >= 60.00 Glucose 257 H Lactate 1.7 H Calcium 9.3 Total Bilirubin 0.2 AST 10 L ALT 25 Alkaline Phosphatase 110 Total Protein 7.9 Albumin 3.8 Lipase 344 Urine Color Yellow Urine Clarity Clear Urine pH 7.0 Ur Specific [place] 1.020 Urine Protein Negative Urine Ketones 15 H Urine Blood Trace-lysed H Urine Nitrite Negative Urine Bilirubin Negative Urine Urobilinogen 1.0 H Ur Leukocyte Esterase Negative Urine RBC 3-5 H Urine WBC 0-2 Ur Epithelial Cells Rare Urine Crystals Few amorphous Urine Bacteria Rare Urine Casts Negative Urine Mucus Negative Urine Other Negative Ur Culture Indicated? No Urine Glucose >=1000 H 05/24/19 01:04 WBC 10.11 RBC 4.71 Hgb 15.4 Hct 44.1 MCV 93.6 MCH 32.7 MCHC 34.9 RDW 11.9 Plt Count 407 H MPV 9.9 Immature Gran % 0.1 Neutrophils % 51.3 Lymphocytes % 37.8 Monocytes % 6.8 Eosinophils % 3.6 Basophils % 0.4 Absolute Neutrophils 5.19 Absolute Lymphocytes 3.82 H Absolute Monocytes 0.69 Absolute Eosinophils 0.36 Absolute Basophils 0.04 Sodium Potassium Chloride Carbon Dioxide Anion Gap BUN Creatinine Estimated GFR/1.73 m2 Glucose Lactate Calcium Total Bilirubin AST ALT Alkaline Phosphatase Total Protein Albumin Lipase Urine Color Urine Clarity Urine pH Ur Specific [place] Urine Protein Urine Ketones Urine Blood Urine Nitrite Urine Bilirubin Urine Urobilinogen Ur Leukocyte Esterase Urine RBC Urine WBC Ur Epithelial Cells Urine Crystals Urine Bacteria Urine Casts Urine Mucus Urine Other Ur Culture Indicated? Urine Glucose Last Vital Signs Temp 96.3 F L 05/24/19 03:35 Pulse 54 L 05/24/19 03:35 Resp 16 05/24/19 03:35 BP 122/79 05/24/19 03:35 Pulse Ox 95 05/24/19 03:35
[2019-05-24 07:24] LABS: Abs Immature Grans 0.02 k/cumm (0.0-0.09); Absolute Basophil Count 0.01 k/cumm (0.0-0.2); Absolute Eosinophil Count 0.04 k/cumm (0.0-0.7); Absolute Lymphocyte Count 1.17 k/cumm (1.2-3.4); Absolute Monocyte Count 0.11 k/cumm (0.11-0.7); Absolute Neutrophil Count 8.43 k/cumm (1.2-6.7); Basophils % 0.1; Eosinophils % 0.4; HCT 41.7 % (36.0-46.0); Immature Grans % 0.2; Mean Corp. HGB Concentration 33.6 g/dL (32.0-36.0); Mean Corpuscular Hemoglobin 32.2 pg (27.0-33.0); Mean Corpuscular Volume 95.9 fL (80-95); Mean Platelet Volume 9.9 fL (8.0-11.0); Monocytes % 1.1; Neutrophils % 86.2; Platelet Count 370 x1000/uL (130-400); RBC 4.35 m/cumm (4.00-5.20); RBC Distribution Width 11.9 % (11.7-14.6); White Blood Cell Count 9.78 k/cumm (4.4-10.8)
[2019-05-24 07:28] VITALS: BP 99/62; PULSE 62; RESP 18; TEMP 36.5; O2SAT 94
[2019-05-24 07:45] LABS: Anion Gap 9.4 mmol/L (3-11); BUN 12 mg/dL (7-18); C-Reactive Protein 0.49 mg/dL (0.0-0.3); CO2 23.6 mmol/L (21.0-32.0); CREATININE 0.68 mg/dL (0.55-1.02); Calcium 8.4 mg/dL (8.5-10.1); Chloride 106 mmol/L (98-107); Glucose 256 mg/dL (70-100); Magnesium 1.9 mg/dL (1.8-2.4); Potassium 4.7 mmol/L (3.5-5.1); Sodium 139 mmol/L (136-145)
[2019-05-24] MEDS: lamoTRIgine 25 MG TAB PO (08:53)
[2019-05-24] MEDS: predniSONE 20 MG TAB 40 MG PO (08:53)
[2019-05-24] MEDS: Escitalopram 20 MG TAB 40 MG PO (08:54)
[2019-05-24] MEDS: Budesonide/Formoterol 160/4.5 6 GM 60 PUFF INH IH (08:55)
[2019-05-24] MEDS: Ipratropium/Albuterol 4 GM 120 PUFF INH IH ×2 (08:56→11:49)
[2019-05-24] MEDS: Ketorolac 30 MG/ML VIAL IVP (09:08)
[2019-05-24] MEDS: Pantoprazole 40 MG VIAL IVP (10:25)
[2019-05-24] MEDS: Lactated Ringers 1,000 ML 80 ML IV (10:26)
--- NOTE | 2019-05-24 11:13 | W.PM.PROGNOT ---
Date of Service Date of service: 05/24/19 Time of Service: 11:13 Assessment and Plan (1) Crohns disease: Current visit: No Status: None A\\ ? mild thickening of transverse colon 7-9 BMs per day CRP slightly elevated P\\ Continue Prednisone Qualifiers: Gastrointestinal tract location: large intestine Digestive disease complication type: without complication Qualified Code(s): K50.10 - Crohn's disease of large intestine without complications (2) RLQ abdominal pain: Current visit: Yes Status: Acute A\\ Pain with movement Minimal pain when distracted P\\ Advance diet Continue with Toradol No narcotics Try heating pad Subjective Interval history since last seen: Patient complaining of 10/10 pain when walking to the shower. When I walked into the room patient is asleep and comfortable. Also patient HR and BP not elevated with 10/10 pain. pain is worse with movement. ? musculoskeletal. NO abnormalities on CT scan in that area. No pain with eating Exam GI Inspection: normal to inspection and non-distended Palpation: soft, no hepatosplenomegaly and tender (tender with guarding. No guarding with distraction. Tender over hip as well) in the RLQ Auscultation: normal bowel sounds Objective Objective Clinical Data: Abnormal lab results 05/24/19 05/24/19 05/24/19 Range/Units 00:55 01:04 01:04 MCV (80-95) fL Plt Count (130-400) x1000/uL Absolute Neutrophils (1.2-6.7) k/cumm Absolute Lymphocytes (1.2-3.4) k/cumm Glucose 257 H (70-100) mg/dL Lactate 1.7 H (0.6-1.4) mmol/L Calcium (8.5-10.1) mg/dL AST 10 L (15-37) U/L C-Reactive Protein (0.0-0.3) mg/dL Urine Ketones 15 H (Negative) mg/dL Urine Blood Trace-lysed H (Negative) Urine Urobilinogen 1.0 H (Up TO 0.2) EU/dL Urine RBC 3-5 H (0-2) Urine Glucose >=1000 H (Negative) mg/dL 05/24/19 05/24/19 05/24/19 Range/Units 01:04 07:05 07:05 MCV 95.9 H (80-95) fL Plt Count 407 H (130-400) x1000/uL Absolute Neutrophils 8.43 H (1.2-6.7) k/cumm Absolute Lymphocytes 3.82 H 1.17 L (1.2-3.4) k/cumm Glucose 256 H (70-100) mg/dL Lactate (0.6-1.4) mmol/L Calcium 8.4 L (8.5-10.1) mg/dL AST (15-37) U/L C-Reactive Protein 0.49 H (0.0-0.3) mg/dL Urine Ketones (Negative) mg/dL Urine Blood (Negative) Urine Urobilinogen (Up TO 0.2) EU/dL Urine RBC (0-2) Urine Glucose (Negative) mg/dL Vital Signs Temperature 97.7 F 05/24/19 07:28 Temperature Source Tympanic 05/24/19 07:28 Pulse 62 05/24/19 07:28 Pulse Rhythm Regular 05/24/19 03:35 Respiratory Rate 18 05/24/19 07:28 Respiratory Effort 05/24/19 03:35 Respiratory Depth Normal 05/24/19 03:35 Respiratory Pattern Normal 05/24/19 03:35 Blood Pressure 99/62 L 05/24/19 07:28 Pulse Oximetry 94 L 05/24/19 07:28 Oxygen Delivery Method Room Air 05/24/19 07:28 Oxygen Flow Rate 0 05/24/19 07:28 Pain Level 10 05/24/19 09:08 Intake & Output 05/23/19 05/23/19 05/24/19 11:59 23:59 11:59 Intake Total 1930 / 1930 Output Total 700 / 700 Balance 1230 / 1230 Weight 165 lb 2.02 oz Intake: IV 1100 / 1100 Oral 830 / 830 Output: Urine 700 / 700 Other: Urine Color Yellow Urine Appearance Clear Urine Odor Normal Voiding Methods Bedside Commode Laboratory Results WBC 9.78 k/cumm (4.4-10.8) 05/24/19 07:05 RBC 4.35 m/cumm (4.00-5.20) 05/24/19 07:05 Hgb 14.0 g/dL (12.0-15.5) 05/24/19 07:05 Hct 41.7 % (36.0-46.0) 05/24/19 07:05 MCV 95.9 fL (80-95) H 05/24/19 07:05 MCH 32.2 pg (27.0-33.0) 05/24/19 07:05 MCHC 33.6 g/dL (32.0-36.0) 05/24/19 07:05 RDW 11.9 % (11.7-14.6) 05/24/19 07:05 Plt Count 370 x1000/uL (130-400) 05/24/19 07:05 MPV 9.9 fL (8.0-11.0) 05/24/19 07:05 Immature Gran % 0.2 05/24/19 07:05 86.2 05/24/19 07:05 12.0 05/24/19 07:05 1.1 05/24/19 07:05 0.4 05/24/19 07:05 0.1 05/24/19 07:05 Absolute Neutrophils 8.43 k/cumm (1.2-6.7) H 05/24/19 07:05 Absolute Lymphocytes 1.17 k/cumm (1.2-3.4) L 05/24/19 07:05 Absolute Monocytes 0.11 k/cumm (0.11-0.7) 05/24/19 07:05 Absolute Eosinophils 0.04 k/cumm (0.0-0.7) 05/24/19 07:05 Absolute Basophils 0.01 k/cumm (0.0-0.2) 05/24/19 07:05 Sodium 139 mmol/L (136-145) 05/24/19 07:05 Potassium 4.7 mmol/L (3.5-5.1) D 05/24/19 07:05 Chloride 106 mmol/L (98-107) 05/24/19 07:05 Carbon Dioxide 23.6 mmol/L (21.0-32.0) 05/24/19 07:05 9.4 mmol/L (3-11) 05/24/19 07:05 BUN 12 mg/dL (7-18) 05/24/19 07:05 0.68 mg/dL (0.55-1.02) 05/24/19 07:05 >= 60.00 (mL/min/1.73m2) 05/24/19 07:05 Glucose 256 mg/dL (70-100) H 05/24/19 07:05 1.7 mmol/L (0.6-1.4) H 05/24/19 01:04 Calcium 8.4 mg/dL (8.5-10.1) L 05/24/19 07:05 Magnesium 1.9 mg/dL (1.8-2.4) 05/24/19 07:05 0.2 mg/dL (0.2-1.0) 05/24/19 01:04 AST 10 U/L (15-37) L 05/24/19 01:04 ALT 25 U/L (12-78) 05/24/19 01:04 110 U/L (46-116) 05/24/19 01:04 0.49 mg/dL (0.0-0.3) H 05/24/19 07:05 7.9 g/dL (6.4-8.2) 05/24/19 01:04 3.8 g/dL (3.4-5.0) 05/24/19 01:04 344 U/L (73-393) 05/24/19 01:04 Yellow (Yellow) 05/24/19 00:55 Clear (Clear) 05/24/19 00:55 7.0 (5-8) 05/24/19 00:55 Ur Specific [place] 1.020 (1.005-1.025) 05/24/19 00:55 Negative mg/dL (Negative) 05/24/19 00:55 15 mg/dL (Negative) H 05/24/19 00:55 Trace-lysed (Negative) H 05/24/19 00:55 Negative (Negative) 05/24/19 00:55 Negative (Negative) 05/24/19 00:55 1.0 EU/dL (Up TO 0.2) H 05/24/19 00:55 Ur Leukocyte Esterase Negative (Negative) 05/24/19 00:55 3-5 (0-2) H 05/24/19 00:55 0-2 HPF (0-5) 05/24/19 00:55 Ur Epithelial Cells Rare HPF (Negative) 05/24/19 00:55 Few amorphous HPF (Negative) 05/24/19 00:55 Rare HPF (Negative) 05/24/19 00:55 Negative LPF (Negative) 05/24/19 00:55 Negative (Negative) 05/24/19 00:55 Negative (Negative) 05/24/19 00:55 Ur Culture Indicated? No 05/24/19 00:55 >=1000 mg/dL (Negative) H 05/24/19 00:55
[2019-05-24 11:17] VITALS: BP 108/64; PULSE 80; RESP 18; TEMP 36.1; O2SAT 97
--- NOTE | 2019-05-24 12:58 | DSE_ITS ---
Date of service: 05/24/19 Time of Service: 12:00 DS: Diagnosis Discharge Diagnosis (1) Crohns disease: Status: None (2) RLQ abdominal pain: Status: Acute Discharge Plan Disposition Patient Disposition: HOME Condition: Fair Discharge Details Chief Complaint: Abd Prob Clinical Impression: Colitis, Ileus Reason For Visit: ILEUS, COLITIS WITH CROHNS Admit Date/Time: 05/24/19 02:46 Admit Provider: Nighat Bustamante Attending Provider: Nighat Bustamante Primary Care Provider: Jewel Parham ED Provider: Hong Dominguez Hospital Course Hospital Course: Mrs. Salomon is a 49 year old female seen yesterday in the ER for abdominal pain. CT scan revealed 2 small bowel loops that were mildly dilated as well as ? mild thickening of the transverse colon. Patient has a history of Crohns which is untreated at this time. CRP was checked the next morening by me and was just above normal. prednisone was started at 40 mg daily. Patient see twice. Both times she complained of 10//10 pain but vital signs were normal. If distracted patient had minimal pain and no guarding. Pain was worse with movement. Patient having BM's. NO hematohcezia or melena. Diet was advanced to soft, low fiber and then I got a call that patient was leaving AMA. I went up to see patient and she would not tell me why she was leaving. Per her nurse she was upset that I wasn't giving her more narcotics and that she couldn't smoke. Discussed with patient the fact that she needs to get re-established with a Documentation Supervisor and get her Crohns treated. Offered to wirtte her a Rx for Prednisone taper which she accepted. Again told patient she would be leaving against medql advice as I don't have a full understanding of her pain. Patient understands and wants to leave anyway. Home Meds and New Rx's Prescriptions: No Action prednisone 20 mg tablet See Rx Instructions PO DAILY Qty: 40 RF: 0 lamotrigine [Lamictal] 25 MG tablet 25 mg PO DAILY RF: 0 escitalopram oxalate [Lexapro] 20 MG tablet 100 mg PO DAILY RF: 0 Combivent 200 PUFF aerosol 2 puff Inhalation DAILY RF: 0 nabumetone 500 MG tablet 500 mg PO PRN PRNRF: 0 albuterol sulfate [ProAir HFA] 8.5 GM HFA aerosol inhaler 200 puff Inhalation Q4H PRN PRN (Reason: wheeze) Qty: 1 RF: 0 Symbicort 160-4.5 mcg/actuation HFA aerosol inhaler 2 puff IH Q12H Qty: 10.2 RF: 0 diazepam 5 mg Tablet 5 mg PO RF: 0 dextroamphetamine-amphetamine [Adderall] 15 mg Tablet 15 mg PO DAILY RF: 0 Discharge Instructions Activity:: Activity as Tolerated Equipment/Supplies:: No Equipment Needed Diet:: soft, low fiber Exam Resp Effort & Inspection: normal respiratory effort Auscultation: clear to auscultation bilaterally Cardio Rate: regular rate Rhythm: regular rhythm GI Inspection: normal to inspection Palpation: soft, no hepatosplenomegaly and tender (mild when distartcted, guarding when not distracted) DS: Data Vitals/I&O Vitals and I&O: Vital Signs Temperature 97.7 F 05/24/19 07:28 Temperature Source Tympanic 05/24/19 07:28 Pulse 62 05/24/19 07:28 Pulse Rhythm Regular 05/24/19 03:35 Respiratory Rate 18 05/24/19 07:28 Respiratory Effort 05/24/19 03:35 Respiratory Depth Normal 05/24/19 03:35 Respiratory Pattern Normal 05/24/19 03:35 Blood Pressure 99/62 L 05/24/19 07:28 Pulse Oximetry 94 L 05/24/19 07:28 Oxygen Delivery Method Room Air 05/24/19 07:28 Oxygen Flow Rate 0 05/24/19 07:28 Pain Level 10 05/24/19 09:08 Intake & Output 05/23/19 05/24/19 05/24/19 23:59 11:59 23:59 Intake Total 1930 / 1930 Output Total 700 / 700 Balance 1230 / 1230 Weight 165 lb 2.02 oz Intake: IV 1100 / 1100 Oral 830 / 830 Output: Urine 700 / 700 Other: Urine Color Yellow Urine Appearance Clear Urine Odor Normal Voiding Methods Bedside Commode Labs on day of discharge: Labs from last 24 hours 05/24/19 05/24/19 05/24/19 07:05 07:05 01:04 WBC 9.78 10.11 RBC 4.35 4.71 Hgb 14.0 15.4 Hct 41.7 44.1 MCV 95.9 H 93.6 MCH 32.2 32.7 MCHC 33.6 34.9 RDW 11.9 11.9 Plt Count 370 407 H MPV 9.9 9.9 Immature Gran % 0.2 0.1 Neutrophils % 86.2 51.3 Lymphocytes % 12.0 37.8 Monocytes % 1.1 6.8 Eosinophils % 0.4 3.6 Basophils % 0.1 0.4 Absolute Neutrophils 8.43 H 5.19 Absolute Lymphocytes 1.17 L 3.82 H Absolute Monocytes 0.11 0.69 Absolute Eosinophils 0.04 0.36 Absolute Basophils 0.01 0.04 Sodium 139 Potassium 4.7 D Chloride 106 Carbon Dioxide 23.6 Anion Gap 9.4 BUN 12 Creatinine 0.68 Estimated GFR/1.73 m2 >= 60.00 Glucose 256 H Lactate Calcium 8.4 L Magnesium 1.9 Total Bilirubin AST ALT Alkaline Phosphatase C-Reactive Protein 0.49 H Total Protein Albumin Lipase Urine Color Urine Clarity Urine pH Ur Specific [place] Urine Protein Urine Ketones Urine Blood Urine Nitrite Urine Bilirubin Urine Urobilinogen Ur Leukocyte Esterase Urine RBC Urine WBC Ur Epithelial Cells Urine Crystals Urine Bacteria Urine Casts Urine Mucus Urine Other Ur Culture Indicated? Urine Glucose 05/24/19 05/24/19 05/24/19 01:04 01:04 00:55 WBC RBC Hgb Hct MCV MCH MCHC RDW Plt Count MPV Immature Gran % Neutrophils % Lymphocytes % Monocytes % Eosinophils % Basophils % Absolute Neutrophils Absolute Lymphocytes Absolute Monocytes Absolute Eosinophils Absolute Basophils Sodium 138 Potassium 3.9 Chloride 100 Carbon Dioxide 29.1 Anion Gap 8.9 BUN 12 Creatinine 0.75 Estimated GFR/1.73 m2 >= 60.00 Glucose 257 H Lactate 1.7 H Calcium 9.3 Magnesium Total Bilirubin 0.2 AST 10 L ALT 25 Alkaline Phosphatase 110 C-Reactive Protein Total Protein 7.9 Albumin 3.8 Lipase 344 Urine Color Yellow Urine Clarity Clear Urine pH 7.0 Ur Specific [place] 1.020 Urine Protein Negative Urine Ketones 15 H Urine Blood Trace-lysed H Urine Nitrite Negative Urine Bilirubin Negative Urine Urobilinogen 1.0 H Ur Leukocyte Esterase Negative Urine RBC 3-5 H Urine WBC 0-2 Ur Epithelial Cells Rare Urine Crystals Few amorphous Urine Bacteria Rare Urine Casts Negative Urine Mucus Negative Urine Other Negative Ur Culture Indicated? No Urine Glucose >=1000 H PFSH Medical History Abscess of sigmoid colon Bipolar affective disorder Bleeding external hemorrhoids Borderline personality disorder COPD (chronic obstructive pulmonary disease) Crohns disease DDD (degenerative disc disease), lumbosacral Depression with anxiety Disassociation disorder Major depressive disorder PTSD (post-traumatic stress disorder) Surgical History Exam under Anesthesia (09/15/17) Social History Smoking/Tobacco Use Status: Current every day Tobacco Type: cigarettes Alcohol Intake: never Drug use: Never Substance use type: does not use Do you feel safe at home: Yes Do you feel safe in your relationship?: Yes
== END 2019-05-24 13:15 | disposition home or self-care (01) ==
LOC: ER 02:49 → MS 03:25
PROVIDERS: Admitting Provider Surgery; Emergency Provider Student in an Organized Health Care Education/Training Program; PCP Family Medicine; Visit Provider Surgery
DX: K50.10 Crohn's disease of large intestine without complications (principal); F17.210 Nicotine dependence, cigarettes, uncomplicated; Z53.21 Procedure and treatment not carried out due to patient leaving prior to being seen by health care provider; J44.9 Chronic obstructive pulmonary disease, unspecified; F31.9 Bipolar disorder, unspecified
CPT/HCPCS: 36415; 80048; 80053; 83690; 94640; 96365; 96375; 99235; 99285; 74177; 81003; 81015; 83605; 83735; 85025; 86140; 99284; G0378; J0131; J1885; J2270; J2930; J3490; J7512

== ENCOUNTER 2019-05-24 21:46 | Inpatient (IN) | payer MEDICARE, MEDICAID, SELFPAY ==
[2019-05-24] VITALS (12 sets, daily range): BP systolic 119–123; BP diastolic 59–72; PULSE 70–99; RESP 18–20; TEMP 36.6; O2SAT 95–97
--- NOTE | 2019-05-24 21:50 | W.ED.GENAD ---
Discharge Plan Disposition Patient Disposition: [facility] INPATIENT Condition: Improving Discharge Details Chief Complaint: Abd Prob Clinical Impression: Abdominal pain, Leukocytosis, Elevated LDH Primary Care Provider: Jewel Parham ED Provider: Hong Dominguez Home Meds and New Rx's Prescriptions: No Action prednisone 20 mg tablet See Rx Instructions PO DAILY Qty: 40 RF: 0 lamotrigine [Lamictal] 25 MG tablet 25 mg PO DAILY RF: 0 escitalopram oxalate [Lexapro] 20 MG tablet 100 mg PO DAILY RF: 0 Combivent 200 PUFF aerosol 2 puff Inhalation DAILY RF: 0 nabumetone 500 MG tablet 500 mg PO PRN PRNRF: 0 albuterol sulfate [ProAir HFA] 8.5 GM HFA aerosol inhaler 200 puff Inhalation Q4H PRN PRN (Reason: wheeze) Qty: 1 RF: 0 Symbicort 160-4.5 mcg/actuation HFA aerosol inhaler 2 puff IH Q12H Qty: 10.2 RF: 0 diazepam 5 mg Tablet 5 mg PO RF: 0 dextroamphetamine-amphetamine [Adderall] 15 mg Tablet 15 mg PO DAILY RF: 0 Medical Decision Making This is a 49-year-old female with a past medical history of Crohn's disease, COPD, who was recently admitted by myself last night for very mild colitis but more concerning the ileus versus obstruction. She left AGAINST MEDICAL ADVICE this morning. She has eaten some pork loin and drank some soda since then and now her pain is notably worse, still in the right lower quadrant. She has had no vomiting. No diarrhea. Repeat exam demonstrates notable reproducible right lower quadrant tenderness. We discussed risks and benefit of additional CT imaging, patient states that she understands the risks and would like further evaluation. Laboratory work-up was ordered first, and she does demonstrate notable white count of 17 now which is much higher than yesterday, in conjunction with a lactate of 4.5 which is also significantly elevated compared to yesterday. I am concerned for an ischemic episode, we will get a CT angios for further evaluation, treat her pain, rehydrate and reassess. 1:13 AM Labs are returned and aside for the notably elevated white count, left shift, and elevated lactate there are no other significant abnormalities. Anion gap is elevated at 15, bicarb is slightly low. Bilirubin normal. Lipase normal. Glucose slightly elevated but near normal compared to chronic labs. CT scan results have returned and per virtual radiology there is no acute process. I did contact Dr. Oneill, and specifically went over the location of the patient's pain, as well as the findings from yesterday, she states that these are no longer present on her current evaluation. Additionally she noticed no abnormalities on the CT scan in the right lower quadrant. test is negative. With no evidence of an acute surgical pathology, I did contact the hospitalist Dr. Lockett and discussed the case with him. Clearly there is concern with the patient's elevated lactate and elevated white count. There may be a component of seeking behavior, however the atypical labs are certainly abnormal. She was given steroids yesterday and this may attribute to her white count however the lactate I feel would be an altered by that. She is not on metformin, and so I do not feel that this is likely to be metformin induced lactic acidosis. The patient does appear to be sitting comfortably in bed and texting however at the same time she does still complain of moderate right lower quadrant pain. Because of the notably abnormal labs I do feel that discharge would be ill advised. We did discuss admission with Dr. Lockett for serial lactate, repeat labs and continued assessment hydration. He does agree. He does recommend holding off on any antibiotics as there is no clear source of infection. This may very well just be an exacerbation of Crohn's not seen radiographically. Urinalysis was negative yesterday. CT scan shows no evidence of acute infectious etiology. He does recommend giving another dose of steroids and we will give this year. He has asked that I place bridging orders and was also asked that I place fluids and pain medications. These will be placed. He has agreed to accept care of the patient. Patient will be admitted to the floor for further management. I have extensively reviewed the treatment plan with the patient. I have addressed all patient concerns at this time. I have also discussed the plan with the admitting physician and they agree with the current assessment and plan and have agreed to assume responsibility for the patient. All parties demonstrate verbal understanding and agreement with our assessment and plan at this time. 1:41 AM Repeat lactate has returned still elevated at 2.3 but notably improved from the initial 4.5. VBG shows no evidence of acidosis. Suspect the elevated anion gap is secondary to dehydration. We will continue with the previously discussed plan. Patient will be admitted to the floor. FINDINGS: Mediastinum: Hiatal hernia. VASCULATURE: Aorta: No aortic aneurysm. No aortic dissection. Celiac trunk and mesenteric arteries: No occlusion or significant stenosis. Renal arteries: No occlusion or significant stenosis. Right iliac arteries: No occlusion or significant stenosis. Left iliac arteries: No occlusion or significant stenosis. ABDOMEN: Liver: Hepatic steatosis. Gallbladder and bile ducts: Contracted gallbladder. Pancreas: Unremarkable. No mass. No ductal dilation. Spleen: Unremarkable. No splenomegaly. Adrenals: Unremarkable. No mass. Kidneys and ureters: Unremarkable. No solid mass. No hydronephrosis. Stomach and bowel: Moderate stool load. Contrast distended stomach. Appendix: No evidence of appendicitis. PELVIS: Bladder: Unremarkable. No mass. Reproductive: Postsurgical changes in the pelvis possibly tubal ligation. ABDOMEN and PELVIS: Intraperitoneal space: Unremarkable. No free air. No significant fluid collection. Bones/joints: No acute fracture. No dislocation. Soft tissues: Umbilical hernia. Lymph nodes: Unremarkable. No enlarged lymph nodes. IMPRESSION: Unremarkable CTA abdomen pelvis. Thank you for allowing us to participate in the care of your patient. Dictated and Authenticated by: Grace Oneill MD [facility] General Date/Time Provider Initiated Documentation: 05/24/19 21:47. HPI Narrative: This is a 49-year-old female with a past medical history of COPD, Crohn's disease, previous abscesses of the sigmoid colon, bipolar disease, who presents today for evaluation of abdominal pain. Patient was here yesterday, she did CT scan of her abdomen which showed a few dilated bowel loops, mild inflammation of the transverse colon. She was admitted to Dr. Bustamante at that time, but unfortunately he left AGAINST MEDICAL ADVICE in the morning and per discharge summary was stating that it was because she could not smoke and was not getting narcotics. Per the patient she states that she left because she was feeling better and her wanted her to cook at home. Since this morning she has had some pork loin as well as soda, she states that her symptoms are now significantly worse. She has not had any vomiting or diarrhea since then. She has been urinating. Pain continues to be in the right lower abdominal quadrant. No other radiation. She denies any new or modifying factors. She does state that the pain is worse than before. No other current complaints. Related Data Home Medications Medication Instructions Recorded Confirmed escitalopram oxalate [Lexapro] 100 mg PO DAILY 05/11/17 05/24/19 lamotrigine [Lamictal] 25 mg PO DAILY 05/11/17 05/24/19 Combivent 2 puff INHALATION DAILY 05/29/17 05/24/19 nabumetone 500 mg PO PRN PRN 09/11/17 05/24/19 albuterol sulfate [ProAir HFA] 200 puff INHALATION Q4H PRN PRN #1 03/07/18 05/24/19 [email or web address] budesonide-formoterol [Symbicort] 2 puff IH Q12H #10.2 gm 11/16/18 05/24/19 dextroamphetamine-amphetamine 15 mg PO DAILY 05/24/19 05/24/19 [Adderall] diazepam 5 mg PO 05/24/19 prednisone 20 mg tablet See Rx Instructions PO DAILY #40 05/24/19 tab Previous Rx's Medication Instructions Recorded albuterol sulfate [ProAir HFA] 200 puff INHALATION Q4H PRN PRN #1 03/07/18 [email or web address] budesonide-formoterol [Symbicort] 2 puff IH Q12H #10.2 gm 11/16/18 prednisone 20 mg tablet See Rx Instructions PO DAILY #40 05/24/19 tab Allergies Allergy/AdvReac Type Severity Reaction Status Date / Time azithromycin [From Zithromax] Allergy Severe hives Unverified 05/24/19 00:50 aripiprazole Allergy Intermediate Nausea Unverified 05/24/19 00:50 chocolate flavor Allergy Unknown Unverified 05/24/19 00:50 coconut Allergy Unknown Unverified 05/24/19 00:50 erythromycin base Allergy Unknown Unverified 05/24/19 00:50 mushroom Allergy Unknown Unverified 05/24/19 00:50 pollen extracts Allergy Unknown Unverified 05/24/19 00:50 nicotine AdvReac Other (See Unverified 05/24/19 00:50 Comment) DUST Allergy Unknown Uncoded 05/24/19 00:50 General NIC: 3 Review of Systems Review of Systems All systems reviewed & are unremarkable except as noted in HPI and below PFSH Social History Smoking/Tobacco Use Status: Current every day Tobacco Type: cigarettes Alcohol Intake: never Drug use: Never Substance use type: does not use Do you feel safe at home: Yes Do you feel safe in your relationship?: Yes Exam Narrative Exam Narrative: 1.Const: Well-nourished, Well-developed, appearing stated age 2.Eyes: PERRL, no conjunctival injection, and symmetrical lids. 3.ENT: Atraumatic external nose and ears. Moist MM. Neck: Symmetric, trachea midline, No thyromegaly. 4.CVS: +S1/S2, No murmurs or gallops. Peripheral pulses 2+ and equal in all extremities. Brisk capillary refill in all extremities. 5.RESP: Unlabored respiratory effort. Clear to auscultation bilaterally. No wheezes rales or rhonchi 6.GI: Soft, Nondistended, No hepatosplenomegaly. Notably severe pain in the right lower quadrant. Still no evidence of bulge in the inguinal canal. No significant pain in the left side of the abdomen. 7.MSK: Normocephalic/Atraumatic, Extremities w/o deformity or ttp No cyanosis or clubbing, Normal movement of all extremities 8.Skin: Warm, Dry. No rashes or lesions. 9.Neuro: special education case manager II-XII grossly intact. Sensation grossly intact, no focal neurologic deficits. 10.Psych: (AAO) x3. Appropriate mood and affect
[2019-05-24 22:12] LABS: Abs Immature Grans 0.04 k/cumm (0.0-0.09); Absolute Lymphocyte Count 1.31 k/cumm (1.2-3.4); Absolute Neutrophil Count 15.72 k/cumm (1.2-6.7); Basophils % 0.1; HCT 41.4 % (36.0-46.0); HGB 14.4 g/dL (12.0-15.5); Immature Grans % 0.2; Lymphocytes % 7.4; Mean Corp. HGB Concentration 34.8 g/dL (32.0-36.0); Mean Corpuscular Hemoglobin 32.6 pg (27.0-33.0); Mean Corpuscular Volume 93.7 fL (80-95); Mean Platelet Volume 9.9 fL (8.0-11.0); Monocytes % 3.8; Neutrophils % 88.5; Platelet Count 425 x1000/uL (130-400); RBC 4.42 m/cumm (4.00-5.20); RBC Distribution Width 11.9 % (11.7-14.6); White Blood Cell Count 17.76 k/cumm (4.4-10.8)
[2019-05-24 22:13] LABS: Absolute Basophil Count 0.02 k/cumm (0.0-0.2); Absolute Monocyte Count 0.67 k/cumm (0.11-0.7)
[2019-05-24 22:20] LABS: Lactate 4.5 mmol/L (0.6-1.4)
[2019-05-24] MEDS: HYDROmorphone 2 MG/ML VIAL 1 MG IVP ×2 (22:21→23:23)
[2019-05-24] MEDS: Ondansetron 4 MG/2 ML VIAL IVP (22:22)
[2019-05-24] MEDS: Normal Saline 1,000 ML 1000 ML IV ×2 (22:22→23:23)
[2019-05-24 22:29] LABS: ALT 24 U/L (12-78); AST 5 U/L (15-37); Albumin 3.8 g/dL (3.4-5.0); Alkaline Phosphatase 119 U/L (46-116); Anion Gap 15.3 mmol/L (3-11); BUN 8 mg/dL (7-18); Bilirubin, Total 0.1 mg/dL (0.2-1.0); CO2 20.7 mmol/L (21.0-32.0); CREATININE 0.92 mg/dL (0.55-1.02); Calcium 9.1 mg/dL (8.5-10.1); Chloride 102 mmol/L (98-107); Glucose 329 mg/dL (70-100); Lipase 177 U/L (73-393); Potassium 4.4 mmol/L (3.5-5.1); Sodium 138 mmol/L (136-145); Total Protein 7.8 g/dL (6.4-8.2)
[2019-05-24] MEDS: Omnipaque 350 MG/ML 100 ML BTL IJ (23:55)
--- NOTE | 2019-05-24 23:55 | DI.CT_ITS ---
SYMPTOM/DIAGNOSIS: COLITIS, ILEUS, ELEVATED LACTATE, ? ISCHEMIA, SEVERE RLQ PAIN ABDOMEN AND PELVIC CTA: CT angiography was performed with multi slice acquisition and multi planar and 3D reconstruction. CTA examination of the abdomen and pelvis was performed with a CTA protocol with intravenous infusion of 75 cc's of Omnipaque 350. 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 Images obtained through the lung bases are unremarkable. The liver, spleen and pancreas appear normal. Gallbladder and bile ducts are CT normal. Adrenals and kidneys are unremarkable with normal symmetrical enhancement of the renal cortex. No abdominal or pelvic adenopathy. No significant abdominal wall hernia. Normal appendix. No evidence of diverticulitis or bowel obstruction. Abdominal aorta is of normal diameter. Celiac trunk, mesenteric vessels, renal arteries and common internal and external iliac arteries are unremarkable. Presumed bilateral tubal ligation noted. Otherwise UPSETTER SETTER UP structures unremarkable. CONCLUSION: Negative CTA abdomen and pelvis.
[2019-05-24] MEDS: Breeza Beverage 473 ML BTL PO (23:56)
[2019-05-24] MEDS: Omnipaque 350 MG/ML 50 ML BTL PO (23:56)
[2019-05-25] VITALS (24 sets, daily range): BP systolic 99–133; BP diastolic 60–72; PULSE 50–82; RESP 16–24; TEMP 35.7–36.7; O2SAT 81–100
--- NOTE | 2019-05-25 00:30 | DI.VRAD_ITS ---
Addendum created by Grace Oneill MD on 05/25/2019 12:44:40 AM EDT The findings were verbally communicated via telephone conference with BALJEET THAKUR at 12:44 AM EDT on 05/25/2019. The findings were acknowledged and understood. Initial report created on 05/25/2019 12:29:43 AM EDT EXAM: CT Angiography Abdomen and Pelvis With Contrast EXAM DATE/TIME: 05/24/2019 10:44 PM CLINICAL HISTORY: 49 years old, female; Abdominal pain; Localized; Right lower quadrant (rlq); Prior surgery; Surgery date: 6+ months; Surgery type: Tubal ligation; Patient HX: Crohn's , colitis, elevated lactate, eval for ischemia; Additional info: Oral contrast requested TECHNIQUE: Imaging protocol: Axial computed tomographic angiography images of the abdomen and pelvis with intravenous contrast material. 3D rendering: MIP reconstructed images were created and reviewed. Radiation optimization: All CT scans at this facility use at least one of these dose optimization techniques: automated exposure control; mA and/or kV adjustment per patient size (includes targeted exams where dose is matched to clinical indication); or iterative reconstruction. Contrast material: OMNIPAQUE 350; Contrast volume: 75 ml; Contrast route: IV; COMPARISON: CT ABDOMEN PELVIS W 24/05/2019 01:17 FINDINGS: Mediastinum: Hiatal hernia. VASCULATURE: Aorta: No aortic aneurysm. No aortic dissection. Celiac trunk and mesenteric arteries: No occlusion or significant stenosis. Renal arteries: No occlusion or significant stenosis. Right iliac arteries: No occlusion or significant stenosis. Left iliac arteries: No occlusion or significant stenosis. ABDOMEN: Liver: Hepatic steatosis. Gallbladder and bile ducts: Contracted gallbladder. Pancreas: Unremarkable. No mass. No ductal dilation. Spleen: Unremarkable. No splenomegaly. Adrenals: Unremarkable. No mass. Kidneys and ureters: Unremarkable. No solid mass. No hydronephrosis. Stomach and bowel: Moderate stool load. Contrast distended stomach. Appendix: No evidence of appendicitis. PELVIS: Bladder: Unremarkable. No mass. Reproductive: Postsurgical changes in the pelvis possibly tubal ligation. ABDOMEN and PELVIS: Intraperitoneal space: Unremarkable. No free air. No significant fluid collection. Bones/joints: No acute fracture. No dislocation. Soft tissues: Umbilical hernia. Lymph nodes: Unremarkable. No enlarged lymph nodes. IMPRESSION: Unremarkable CTA abdomen pelvis. Dictated and Authenticated by: Grace Oneill MD. Ordering:SAMSON Pitts MD
[2019-05-25 01:29] LABS: BE (Venous) -0.5 mmol/L (-3-3); HCO3 (Venous) 25 mmol/L (22-28); O2 Sat (Venous) 49 % (70-80); TCO2 (Venous) 23 mmol/L (22-29); pCO2 (Venous) 46 mm/Hg (34-47); pH (Venous) 7.34 (7.32-7.43); pO2 (Venous) 25 mm/Hg (28-44)
[2019-05-25 01:32] LABS: Lactate 2.3 mmol/L (0.6-1.4)
[2019-05-25] MEDS: MORPHine 2 MG/ML SYR IVP ×5 (01:36→15:15)
[2019-05-25] MEDS: Normal Saline 1,000 ML 150 ML IV ×5 (01:44→22:23)
[2019-05-25] MEDS: Normal Saline Flush 10 ML SYR IVP ×6 (02:13→21:43)
[2019-05-25] MEDS: methylPREDNISolone SUCC 125 MG VIAL IVP (02:13)
--- NOTE | 2019-05-25 05:47 | W.PM.HP.N ---
Date of service: 05/25/19 Time of Service: 05:48 Assessment and Plan (1) Abdominal pain: Current visit: Yes Status: Acute Abdominal pain. I think this is most likely a flare of Crohn's disease, though not evident by CT imaging. I would advise continued NPO and steroids. Endoscopy or MRE might be useful to secure diagnosis, and would also advise stool studies. I do note that there was a report in most recent admission of possible drug seeking and this will need to be considered as well though I do not have an impression of such at present. History of Present Illness Chief Complaint: abdominal pain Narrative: 49 female with h/o Crohn's disease, previously on Asacol and followed by GI in [place], has not been seen for 1 1/2 years . Baseline has diarrhea 3-4/day. Over past week has been having RLQ pain and bloody diarrhea up to 7/day. Was admitted here yesterday, treated with steroids wuith resolution of pain and left AMA. Returns this morning with recurrent RLQ pain. In ER findings of note for leukocytosis (though on Prednisone), elevated lactate and unremarkable CT;CRP slightly elevated at 0.49. Received Dilaudid and Solumedrol and admitted for further management. Patient received one further dose of opiates here on floor. Says she feels much better at present. Review of Systems Review of Systems All systems reviewed & are unremarkable except as noted in HPI and below PFSH Medical History Abscess of sigmoid colon Bipolar affective disorder Bleeding external hemorrhoids Borderline personality disorder COPD (chronic obstructive pulmonary disease) Crohns disease DDD (degenerative disc disease), lumbosacral Depression with anxiety Disassociation disorder Major depressive disorder PTSD (post-traumatic stress disorder) Surgical History Exam under Anesthesia (09/15/17) Social History Smoking/Tobacco Use Status: Current every day Tobacco Type: cigarettes Alcohol Intake: never Drug use: Never Substance use type: does not use Do you feel safe at home: Yes Do you feel safe in your relationship?: Yes Meds Home Medications Medication Instructions Recorded Confirmed Type escitalopram oxalate [Lexapro] 100 mg PO DAILY 05/11/17 05/24/19 History lamotrigine [Lamictal] 25 mg PO DAILY 05/11/17 05/24/19 History Combivent 2 puff INHALATION DAILY 05/29/17 05/24/19 History nabumetone 500 mg PO PRN PRN 09/11/17 05/24/19 History albuterol sulfate [ProAir HFA] 200 puff INHALATION Q4H PRN PRN #1 03/07/18 05/24/19 Rx hfa.aer.ad budesonide-formoterol [Symbicort] 2 puff IH Q12H #10.2 gm 11/16/18 05/24/19 Rx dextroamphetamine-amphetamine 15 mg PO DAILY 05/24/19 05/24/19 History [Adderall] diazepam 5 mg PO 05/24/19 History prednisone 20 mg tablet See Rx Instructions PO DAILY #40 05/24/19 Rx tab Allergies Allergy/AdvReac Type Severity Reaction Status Date / Time azithromycin [From Zithromax] Allergy Severe hives Unverified 05/24/19 00:50 aripiprazole Allergy Intermediate Nausea Unverified 05/24/19 00:50 chocolate flavor Allergy Unknown Unverified 05/24/19 00:50 coconut Allergy Unknown Unverified 05/24/19 00:50 erythromycin base Allergy Unknown Unverified 05/24/19 00:50 mushroom Allergy Unknown Unverified 05/24/19 00:50 pollen extracts Allergy Unknown Unverified 05/24/19 00:50 nicotine AdvReac Other (See Unverified 05/24/19 00:50 Comment) DUST Allergy Unknown Uncoded 05/24/19 00:50 Exam Narrative Exam Narrative: 117/61, 57, 16, 36.2. HEENT unremarkable; neck supple; lungs few wheeze; heart RRR; abdomen +BS, soft, mild RLQ and right mid-abdominal tenderness without rebound. Pelvic/rectal; deferred; Neuro Ox3, non-focal Results Labs : 05/24/19 22:04 05/24/19 22:04 Laboratory Results - last 24 hr 05/24/19 05/24/19 05/24/19 22:04 22:04 22:04 WBC 17.76 H D RBC 4.42 Hgb 14.4 Hct 41.4 MCV 93.7 MCH 32.6 MCHC 34.8 RDW 11.9 Plt Count 425 H MPV 9.9 Immature Gran % 0.2 Neutrophils % 88.5 Lymphocytes % 7.4 Monocytes % 3.8 Eosinophils % 0.0 Basophils % 0.1 Absolute Neutrophils 15.72 H Absolute Lymphocytes 1.31 Absolute Monocytes 0.67 Absolute Eosinophils 0.00 Absolute Basophils 0.02 VBG pH VBG pCO2 VBG pO2 VBG HCO3 VBG Total CO2 VBG O2 Saturation VBG Base Excess Sodium 138 Potassium 4.4 Chloride 102 Carbon Dioxide 20.7 L Anion Gap 15.3 H BUN 8 Creatinine 0.92 Estimated GFR/1.73 m2 >= 60.00 Glucose 329 H Lactate 4.5 H* Calcium 9.1 Total Bilirubin 0.1 L AST 5 L ALT 24 Alkaline Phosphatase 119 H Total Protein 7.8 Albumin 3.8 Lipase 177 05/25/19 05/25/19 01:25 01:25 WBC RBC Hgb Hct MCV MCH MCHC RDW Plt Count MPV Immature Gran % Neutrophils % Lymphocytes % Monocytes % Eosinophils % Basophils % Absolute Neutrophils Absolute Lymphocytes Absolute Monocytes Absolute Eosinophils Absolute Basophils VBG pH 7.34 VBG pCO2 46 VBG pO2 25 L VBG HCO3 25 VBG Total CO2 23 VBG O2 Saturation 49 L VBG Base Excess -0.5 Sodium Potassium Chloride Carbon Dioxide Anion Gap BUN Creatinine Estimated GFR/1.73 m2 Glucose Lactate 2.3 H* Calcium Total Bilirubin AST ALT Alkaline Phosphatase Total Protein Albumin Lipase Last Vital Signs Temp 36.2 C L 05/25/19 02:05 Pulse 57 L 05/25/19 02:05 Resp 16 05/25/19 02:05 BP 117/61 05/25/19 02:05 Pulse Ox 97 05/25/19 02:05
[2019-05-25] MEDS: methylPREDNISolone SUCC 40 MG VIAL 20 MG IVP (09:51)
[2019-05-25 10:06] LABS: Abs Immature Grans 0.05 k/cumm (0.0-0.09); Absolute Monocyte Count 0.23 k/cumm (0.11-0.7); Basophils % 0.1; HCT 38.3 % (36.0-46.0); HGB 12.8 g/dL (12.0-15.5); Immature Grans % 0.3; Lymphocytes % 7.5; Mean Corp. HGB Concentration 33.4 g/dL (32.0-36.0); Mean Corpuscular Hemoglobin 32.6 pg (27.0-33.0); Mean Corpuscular Volume 97.5 fL (80-95); Mean Platelet Volume 10.5 fL (8.0-11.0); Monocytes % 1.4; Neutrophils % 90.7; Platelet Count 358 x1000/uL (130-400); RBC 3.93 m/cumm (4.00-5.20); RBC Distribution Width 12.1 % (11.7-14.6); White Blood Cell Count 16.16 k/cumm (4.4-10.8)
[2019-05-25 10:09] LABS: Absolute Basophil Count 0.02 k/cumm (0.0-0.2); Absolute Lymphocyte Count 1.21 k/cumm (1.2-3.4); Absolute Neutrophil Count 14.66 k/cumm (1.2-6.7)
[2019-05-25 10:15] LABS: ALT 36 U/L (12-78); AST 22 U/L (15-37); Albumin 3.1 g/dL (3.4-5.0); Alkaline Phosphatase 94 U/L (46-116); Anion Gap 9.7 mmol/L (3-11); BUN 5 mg/dL (7-18); Bilirubin, Total 0.1 mg/dL (0.2-1.0); CO2 23.3 mmol/L (21.0-32.0); CREATININE 0.71 mg/dL (0.55-1.02); Calcium 8.1 mg/dL (8.5-10.1); Chloride 108 mmol/L (98-107); Glucose 254 mg/dL (70-100); Magnesium 1.7 mg/dL (1.8-2.4); Potassium 4.5 mmol/L (3.5-5.1); Sodium 141 mmol/L (136-145); Total Protein 6.5 g/dL (6.4-8.2)
--- NOTE | 2019-05-25 10:43 | PDOC.CMIN ---
- If Service Date Differs Date of service: 05/25/19 Time of Service: 10:43 Care Management Initial Assess REASON FOR HOSPITALIZATION:: Abdominal pain, elevated lactate PAST MEDICAL HISTORY/PAST SURGICAL HISTORY:: Abscess of sigmoid colon. Bipolar affective disorder. Bleeding external hemorrhoids. Borderline personality disorder. COPD (chronic obstructive pulmonary disease). Crohns disease. DDD (degenerative disc disease), lumbosacral. Depression with anxiety. Disassociation disorder. Major depressive disorder. PTSD (post-traumatic stress disorder). Exam under Anesthesia (09/15/17) PREVIOUS FUNCTIONAL STATUS/SOCIAL/FAMILY SUPPORTS:: Sunni lives in [facility] with her . She states that she has 12 children and 16 grandchildren. Her son, David, helps her clean at home, but otherwise she is independent at baseline. She has a dog (a white pitbull), Yuli, that she is very close to. 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 CURRENT FUNCTIONAL STATUS:: Sunni was lying in bed when CM entered the room. She stated that she was tired and in pain. She was quiet at first, but then sat up and talked pleasantly when physician entered the room. She then engaged well with CM. She was open to options about her care, and forthcoming about her past experiences. ADVANCE DIRECTIVES:: CM asked if she wanted a copy, Sunni declined. Has patient been provided with information about the portal?: Yes Did the patient sign up for the portal?: No (Sunni declined.) CODE STATUS:: Full Code INSURANCE COVERAGE / FINANCIAL ISSUES:: Medicaid/Medicare CURRENT HOME/COMMUNITY SERVICES/EQUIPMENT:: Sunni uses [facility]. PRIMARY CARE PHYSICIAN:: Jewel Parham MD POTENTIAL DISCHARGE NEEDS:: Follow up with recommended services at discharge, including primary care and GI specialist at [facility], if appropriate. PATIENT/FAMILY EDUCATION NEEDS:: Review discharge instructions, any limitations, and ongoing DC planning discussion. Discuss 'Ask Me Three' ANTICIPATED BARRIERS TO DISCHARGE:: Sunni admits to confrontations with previous providers. She stated that she does not like hospitals, and it is difficult for her to stay if she feels like her needs are not being met. She is self aware, and is trying to manage her stress in order to receive appropriate treatment. TRANSPORTATION:: Sunni is independent with transportation, anticipate [facility] bus for discharge. PLAN:: Sunni will discharge home with no anticipated services. She will follow up with her PCP and possible GI specialist at [facility] if recommended. She is receiving IV fluids, pain management, and IV steroids. CM will continue to follow discharge planning and support.
--- NOTE | 2019-05-25 14:50 | PHARADMIT ---
Admission Pharmacy Clinical Review ABDOMINAL PAIN, ELEVATED LACTATE Code Status Full Code Current Weight 74.3 kg Renally Cleared and Narrow Therapeutic Index Meds CRCL ~65ML/MIN QTc Value / Action Taken NA BP Control, Fever 114/65, AFEBRILE Electrolytes reviewed MAG 1.7 DVT Prophylaxis ENOXAPARIN Opiate Usage / Scheduled Bowel Regimen Ordered PRN/NO(LAST BM 05/24/19) Plt/SCr for Heparin / Enoxaparin 358 INR for Warfarin NA H/H stable, WBC/Bands 12.8/38.3 WBC 16.16 Antibiotic appropriateness NA Cultures and Sensitivities BC PENDING Surgical ABX d/c within 24 hr NA DM control / Insulin Dosing NA Heart Failure (Check EF%) (ALEE's, B-Block, Diuretics) IV to PO Switch Home Meds Reviewed Home Meds Not Ordered Combivent 1 puff INHALATION QID nabumetone 500 mg PO PRN PRN diazepam 5 mg PO albuterol sulfate [Ventolin HFA] 1 puff INHALATION Q4H PRN PRN Comments ? CROHN'S FLARE
[2019-05-25] MEDS: HYDROmorphone 2 MG/ML VIAL 1 MG IVP ×2 (16:36→20:18)
[2019-05-25] MEDS: Budesonide/Formoterol 160/4.5 6 GM 60 PUFF INH IH (19:55)
[2019-05-26] MEDS: Normal Saline Flush 10 ML SYR IVP ×4 (00:23→08:33)
[2019-05-26] MEDS: HYDROmorphone 2 MG/ML VIAL 1 MG IVP ×3 (00:23→08:32)
[2019-05-26 03:56] VITALS: BP 139/80; PULSE 61; RESP 19; TEMP 36.9; O2SAT 99
[2019-05-26 06:46] LABS: Lactate 1.8 mmol/L (0.6-1.4)
[2019-05-26 06:52] LABS: Abs Immature Grans 0.03 k/cumm (0.0-0.09); Absolute Basophil Count 0.01 k/cumm (0.0-0.2); Absolute Lymphocyte Count 5.14 k/cumm (1.2-3.4); Basophils % 0.1; Eosinophils % 0.5; HCT 36.6 % (36.0-46.0); HGB 12.4 g/dL (12.0-15.5); Immature Grans % 0.2; Lymphocytes % 35.3; Mean Corp. HGB Concentration 33.9 g/dL (32.0-36.0); Mean Corpuscular Volume 97.3 fL (80-95); Mean Platelet Volume 9.9 fL (8.0-11.0); Monocytes % 4.9; Platelet Count 333 x1000/uL (130-400); RBC 3.76 m/cumm (4.00-5.20); RBC Distribution Width 12.3 % (11.7-14.6); White Blood Cell Count 14.56 k/cumm (4.4-10.8)
[2019-05-26 06:59] LABS: Absolute Eosinophil Count 0.07 k/cumm (0.0-0.7); Absolute Monocyte Count 0.71 k/cumm (0.11-0.7); Absolute Neutrophil Count 8.59 k/cumm (1.2-6.7)
[2019-05-26 07:11] LABS: ALT 34 U/L (12-78); AST 14 U/L (15-37); Alkaline Phosphatase 68 U/L (46-116); Anion Gap 6.6 mmol/L (3-11); BUN 8 mg/dL (7-18); Bilirubin, Total 0.2 mg/dL (0.2-1.0); CO2 28.4 mmol/L (21.0-32.0); CREATININE 0.62 mg/dL (0.55-1.02); Calcium 8.1 mg/dL (8.5-10.1); Chloride 108 mmol/L (98-107); Glucose 131 mg/dL (70-100); Magnesium 1.8 mg/dL (1.8-2.4); Potassium 3.5 mmol/L (3.5-5.1); Sodium 143 mmol/L (136-145)
[2019-05-26 07:37] LABS: Diff Comment Agrees w/ Instrument; RBC Morphology Normal
[2019-05-26 07:48] VITALS: BP 140/79; PULSE 64; RESP 18; TEMP 36.3; O2SAT 97
[2019-05-26] MEDS: predniSONE 20 MG TAB 60 MG PO (08:09)
[2019-05-26] MEDS: Escitalopram 20 MG TAB 40 MG PO (08:10)
[2019-05-26] MEDS: Normal Saline 1,000 ML 150 ML IV (08:17)
[2019-05-26] MEDS: Budesonide/Formoterol 160/4.5 6 GM 60 PUFF INH IH (08:33)
[2019-05-26] MEDS: Magnesium Oxide 400 MG TAB PO (08:33)
[2019-05-26] MEDS: Potassium Chloride 20 MEQ TABCR 40 MEQ PO (08:33)
--- NOTE | 2019-05-26 10:49 | CMPROGNOTE_ITS ---
- If Service Date Differs Date of service: 05/26/19 Time of Service: 10:49 Care Management Progress Note S/O: Sunni remains inpatient today she is receiving IV pain management and steroid taper for Chrons Flare. She will need to follow up with GI specialist at time A: Sunni is a 49 year old female with a history of chrons currently with acute exacerbation. P:Sunni will discharge home with no anticipated services. She will follow up with her PCP and possible GI specialist at [facility] if recommended. She is receiving IV fluids, pain management, and IV steroids. CM will continue to follow discharge planning and support.
[2019-05-26 11:33] VITALS: BP 189/96; PULSE 71; RESP 18; TEMP 36.8; O2SAT 97
[2019-05-26] MEDS: oxyCODONE 5 mg/Acetaminophen 325 mg TAB 1 TAB PO (11:48)
--- NOTE | 2019-05-26 13:16 | W.PM.DS.N ---
Date of service: 05/26/19 Time of Service: 13:16 DS: Diagnosis Discharge Diagnosis (1) Abdominal pain: Status: Acute Discharge Plan Disposition Patient Disposition: HOME Condition: Improving Discharge Details Chief Complaint: Abd Prob Clinical Impression: Abdominal pain, Leukocytosis, Elevated LDH Reason For Visit: ABDOMINAL PAIN, ELEVATED LACTATE Admit Date/Time: 05/25/19 01:09 Admit Provider: Momo Lockett Attending Provider: Momo Lockett Primary Care Provider: Jewel Parham ED Provider: Hong Dominguez Hospital Course Hospital Course: Chief Complaint: Abdominal Pain HPI: 49 year old woman with a prior history of Crohn's, admitted from [facility] Emergency Department on 05/25 with a diagnosis of possible acute Crohn's Flare. Mrs. Salomon has a Past Medical History significant for Crohn's disease with reported prior abscesses of the sigmoid colon, bipolar disorder, Tobacco abuse, and COPD. She initially presented to the ED on 05/24 with complaints of RLQ abdominal pain, along with reported diarrhea, episode of nausea with vomitting, and food aversion. She has not had a GI physician or regular follow-up for her Crohn's in some time. CT Scan showed evidence of mild wall thickening of the mid transverse colon, as well as scattered regions of mild small bowel wall thickening. There was also note regarding concern for ileus vs. obstruction at the time. Her labwork was unremarkable. She was referred for admission by surgery, and shortly after admission left AMA. She was prescribed prednisone which she took. After returning home and attempting a diet she had recurrence of the pain, and returned to the ED, at which time she was noted to have a significant increase in her WBC at 17.7, WBC of 17, and lactate of 4.5 with a bicarb of 20.7. LFTs and Lipase remained normal. Imaging was repeated in the ED with a CTA of the abdomen now showing no abnormalities. Patient was admitted for further evaluation and treatment. Unfortunately Mrs. Salomon's stool was not tested for infection, and upon admission to medicine she did not have any further diarrhea. Given her symptoms an acute exacerbation of her Crohn's was suspected, but infectious etiology not entirely ruled out. Her WBC improved despite prednisone, and is currently 14 (down from 17), and her bicarb has normalized with a lactate decreased from 4.5 --> 2.3, 1.8 on day of discharge. Patient is requesting discharge home today. Case was discussed with GI at [facility] who agreed that at this point the patient was likely committed to steroid therapy, with no antibiotics recommended. She will be discharged on 60mg prednisone daily, with reduction in dose at 10mg increments weekly, as well as follow-up with GI/IBD specialist at [facility] Dr. Fredy Persaud - appointment made for ThursdayAugust 15. Patient reports passing flatus and without any further diarrhea, is tolerating oral intake on a somewhat limited basis, with vast improvement in discomfort. Recommendations for follow-up with PCP in 1 week. Home Meds and New Rx's Prescriptions: New prednisone 10 mg tablet 10 mg PO DAILY Qty: 114 RF: 0 omeprazole 40 mg capsule,delayed release(DR/EC) 40 mg PO DAILY Qty: 30 RF: 0 Continued lamotrigine [Lamictal] 25 MG tablet 100 mg PO DAILY RF: 0 escitalopram oxalate [Lexapro] 20 MG tablet 40 mg PO DAILY RF: 0 Combivent 200 PUFF aerosol 1 puff Inhalation QID RF: 0 albuterol sulfate [ProAir HFA] 8.5 GM HFA aerosol inhaler 200 puff Inhalation Q4H PRN PRN (Reason: wheeze) Qty: 1 RF: 0 Symbicort 160-4.5 mcg/actuation HFA aerosol inhaler 2 puff IH Q12H Qty: 10.2 RF: 0 diazepam 5 mg Tablet 5 mg PO RF: 0 dextroamphetamine-amphetamine [Adderall] 15 mg Tablet 40 mg PO DAILY RF: 0 albuterol sulfate [Ventolin HFA] 90 mcg/actuation Hfa Aerosol Inhaler 1 puff INHALATION Q4H PRN PRNRF: 0 Discontinued prednisone 20 mg tablet See Rx Instructions PO DAILY Qty: 40 RF: 0 nabumetone 500 MG tablet 500 mg PO PRN PRNRF: 0 Discharge Instructions Instructions: Acute Abdominal Pain (DC) Additional Instructions: Please see your primary care provider within 1 week of discharge. You have an appointment to see Dr. Fredy Persaud, Gastroenterology at [facility] on ThursdayAug 15 at 9:20am. Stand Alone Forms: Nursing Discharge Form Referrals: Priscila Snowden [[facility] REGISTERED NURSE] - 06/01/19 1:30 pm Activity:: No strenuous activity Equipment/Supplies:: No Equipment Needed Diet:: As Tolerated Discharge Orders Discharge Orders: Discharge Order (Routine); Ordered 05/26/19 Ordered By: Jeison Cheek DS: Data Vitals/I&O Vitals and I&O: Vital Signs Temperature 36.8 C 05/26/19 11:33 Temperature Source Tympanic 05/26/19 11:33 Pulse 71 05/26/19 11:33 Pulse Rhythm Regular 05/26/19 08:15 Respiratory Rate 18 05/26/19 11:33 Respiratory Effort Non-Labored 05/26/19 08:15 Respiratory Depth Normal 05/26/19 08:15 Respiratory Pattern Normal 05/26/19 08:15 Blood Pressure 189/96 H 05/26/19 11:33 Blood Pressure Mean 75 05/25/19 01:31 Blood Pressure Position Sitting 05/24/19 21:52 Pulse Oximetry 97 05/26/19 11:33 Oxygen Delivery Method Room Air 05/26/19 11:33 Oxygen Flow Rate 0 05/26/19 11:33 Pain Level 10 05/26/19 11:48 Intake & Output 05/25/19 05/26/19 05/26/19 23:59 11:59 23:59 Intake Total 3132.5 / 6050.0 1845 / 1845 Output Total 1050 / 2400 Balance 2082.5 / 3650.0 1845 / 1845 Intake: IV 1922.5 / 4840.0 1485 / 1485 Oral 1210 / 1210 360 / 360 Output: Urine 1050 / 2400 Other: Urine Color Yellow Urine Appearance Clear Clear Urine Odor None Comment voids in toilet hat. Stool Size Smear Stool Characteristics Soft Brown Voiding Methods Toilet Completed studies during hospitalization [Text1]: Exam(s) 05/24/[address]:CT abdomen & pelvis w SYMPTOM/DIAGNOSIS: RLQ ABD PAIN, CROHN'S DISEASE ABDOMINAL AND PELVIC CT: 05/24 CT examination of the abdomen and pelvis was performed with a bolus infusion of 100 cc Omnipaque 350. Note is made of bilateral L5 spondylolysis with spondylolisthesis of about 15% of the vertebral width of L5 on S1. Images obtained through the lung bases are unremarkable. Liver, spleen and pancreas appear normal. No biliary dilatation. No gallbladder abnormality by CT criteria. Adrenals and kidneys appear normal. No evidence of urinary tract calcification or obstruction. No significant vascular abnormality seen in the abdomen or pelvis. No significant abdominal wall hernia seen. No adenopathy identified. There are a few mildly dilated loops of small bowel in the left upper quadrant, scattered regions of mild small bowel wall thickening and colonic wall thickening may be present as well raising the possibility of enteritis. No evidence of obstruction. There are bilateral tubal ligation clips and there is a small quantity of fluid in the left Fallopian tube. The findings were similar on previous CT of 04/27/17. No acute process. Appendix is normal. No evidence of diverticulitis CONCLUSION: Findings raising the possibility of enteritis. No other significant acute findings, question mild hepatic steatosis. Exam(s) 05/24/[address]:CT abdomen & pelvis CTA SYMPTOM/DIAGNOSIS: COLITIS, ILEUS, ELEVATED LACTATE, ? ISCHEMIA, SEVERE RLQ PAIN ABDOMEN AND PELVIC CTA: CT angiography was performed with multi slice acquisition and multi planar and 3D reconstruction. CTA examination of the abdomen and pelvis was performed with a CTA protocol with intravenous infusion of 75 cc's of Omnipaque 350. 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 Images obtained through the lung bases are unremarkable. The liver, spleen and pancreas appear normal. Gallbladder and bile ducts are CT normal. Adrenals and kidneys are unremarkable with normal symmetrical enhancement of the renal cortex. No abdominal or pelvic adenopathy. No significant abdominal wall hernia. Normal appendix. No evidence of diverticulitis or bowel obstruction. Abdominal aorta is of normal diameter. Celiac trunk, mesenteric vessels, renal arteries and common internal and external iliac arteries are unremarkable. Presumed bilateral tubal ligation noted. Otherwise [employer] structures unremarkable. CONCLUSION: Negative CTA abdomen and pelvis. Labs on day of discharge: Labs from last 24 hours 05/26/19 05/26/19 05/26/19 06:35 06:35 06:35 WBC 14.56 H RBC 3.76 L Hgb 12.4 Hct 36.6 MCV 97.3 H MCH 33.0 MCHC 33.9 RDW 12.3 Plt Count 333 MPV 9.9 Immature Gran % 0.2 Neutrophils % 59.0 Lymphocytes % 35.3 Monocytes % 4.9 Eosinophils % 0.5 Basophils % 0.1 Absolute Neutrophils 8.59 H Absolute Lymphocytes 5.14 H Absolute Monocytes 0.71 H Absolute Eosinophils 0.07 Absolute Basophils 0.01 Differential Comment Agrees w/ instrument RBC Morphology Normal Sodium 143 Potassium 3.5 D Chloride 108 H Carbon Dioxide 28.4 Anion Gap 6.6 BUN 8 Creatinine 0.62 Estimated GFR/1.73 m2 >= 60.00 Glucose 131 H D Lactate 1.8 H Calcium 8.1 L Magnesium 1.8 Total Bilirubin 0.2 AST 14 L ALT 34 Alkaline Phosphatase 68 Total Protein 6.0 L Albumin 3.0 L Stool Calprotectin 05/26/19 05/25/19 05:35 20:35 WBC RBC Hgb Hct MCV MCH MCHC RDW Plt Count MPV Immature Gran % Neutrophils % Lymphocytes % Monocytes % Eosinophils % Basophils % Absolute Neutrophils Absolute Lymphocytes Absolute Monocytes Absolute Eosinophils Absolute Basophils Differential Comment RBC Morphology Sodium Cancelled Potassium Cancelled Chloride Cancelled Carbon Dioxide Cancelled Anion Gap Cancelled BUN Creatinine Estimated GFR/1.73 m2 Glucose Lactate Calcium Magnesium Cancelled Total Bilirubin AST ALT Alkaline Phosphatase Total Protein Albumin Stool Calprotectin Pending Preliminary micro results at discharge 05/24/19 23:12 Blood Culture - Preliminary Blood NO GROWTH 24 HOURS 05/24/19 22:44 Blood Culture - Preliminary Blood NO GROWTH 24 HOURS [facility] Medical History Abscess of sigmoid colon Bipolar affective disorder Bleeding external hemorrhoids Borderline personality disorder COPD (chronic obstructive pulmonary disease) Crohns disease DDD (degenerative disc disease), lumbosacral Depression with anxiety Disassociation disorder Major depressive disorder PTSD (post-traumatic stress disorder) Surgical History Exam under Anesthesia (09/15/17) Social History Smoking/Tobacco Use Status: Current every day Tobacco Type: cigarettes Alcohol Intake: never Drug use: Never Substance use type: does not use Do you feel safe at home: Yes Do you feel safe in your relationship?: Yes
--- NOTE | 2019-05-26 13:29 | CHAPLAIN ---
Sunni was drawing on her whiteboard when I stopped in. She told me about coming to the ER for abdominal pain, receiving medication and then leaving against medical advice. She later returned to the ER and was admitted. She said she learned a lesson from that. She expects to be discharged later today.
[2019-05-28 18:19] LABS: Calprotectin 44.3 mcg/g
== END 2019-05-26 14:20 | disposition home or self-care (01) | DRG 387 ==
LOC: ER 05-25 01:20 → MS 05-25 02:01
PROVIDERS: Admitting Provider General Practice; Emergency Provider Student in an Organized Health Care Education/Training Program; PCP Family Medicine; Visit Provider Internal Medicine
DX: K50.90 Crohn's disease, unspecified, without complications (principal); F31.9 Bipolar disorder, unspecified; J44.9 Chronic obstructive pulmonary disease, unspecified; Z87.19 Personal history of other diseases of the digestive system
CPT/HCPCS: 36415; 80048; 80051; 80053; 81025; 82805; 83690; 87040; 94640; 96361; 96365; 96374; 96375; 99222; 99235; 99239; 99285; 74174; 74177; 81003; 81015; 83605; 83630; 83735; 83993; 85025; 86140; 87324; 99284; G0378; J0131; J1885; J2270; J2405; J2930; J3490; J7512; Q9967

== ENCOUNTER 2019-06-28 18:27 | Inpatient (IN) | payer MEDICARE, MEDICAID, SELFPAY ==
[2019-06-28 18:36] VITALS: BP 126/73; PULSE 100; RESP 18; TEMP 37; O2SAT 96
--- NOTE | 2019-06-28 20:21 | ED.GENADUL_ITS ---
Discharge Plan Disposition Patient Disposition: [facility] INPATIENT Condition: Fair Discharge Details Chief Complaint: Chest/Rib Clinical Impression: Left lower lobe pneumonia, Nausea, vomiting and diarrhea, Hypokalemia, Hyperglycemia Primary Care Provider: Jewel Parham ED Provider: Jose Key Home Meds and New Rx's Prescriptions: No Action lamotrigine [Lamictal] 25 MG tablet 100 mg PO DAILY RF: 0 escitalopram oxalate [Lexapro] 20 MG tablet 40 mg PO DAILY RF: 0 Combivent 200 PUFF aerosol 1 puff Inhalation QID RF: 0 albuterol sulfate [ProAir HFA] 8.5 GM HFA aerosol inhaler 200 puff Inhalation Q4H PRN PRN (Reason: wheeze) Qty: 1 RF: 0 Symbicort 160-4.5 mcg/actuation HFA aerosol inhaler 2 puff IH Q12H Qty: 10.2 RF: 0 dextroamphetamine-amphetamine [Adderall] 15 mg Tablet 40 mg PO DAILY RF: 0 albuterol sulfate [Ventolin HFA] 90 mcg/actuation Hfa Aerosol Inhaler 1 puff INHALATION Q4H PRN PRNRF: 0 omeprazole 40 mg capsule,delayed release(DR/EC) 40 mg PO DAILY Qty: 30 RF: 0 oxycodone-acetaminophen [Percocet] 5-325 mg tablet 1 tab PO Q4H PRN (Reason: pain) Qty: 14 RF: 0 Medical Decision Making Patient presenting with multiple complaints. Chief complaint is left thoracic back pain and difficulty breathing. She reports fevers. She reports possible Crohn's flare with vomiting, abdominal pain, diarrhea. She has just finished a large burst and taper of steroids. She has not followed up with GI. Symptoms have been present for 3 days. Differential will be broad and involves both cardiopulmonary as well as GI. As such IV established and fluids started. Toradol and Lidoderm patch ordered for the back pain. Zofran for nausea. Laboratory studies, EKG, CT chest abdomen pelvis obtained. EKG is normal. She has slight sinus tachycardia. Laboratory studies significant for white count of 20.1. Hemoglobin and platelets normal. Chemistries significant for a sodium of 129. Potassium low at 2.9. IV replacement ordered. Glucose elevated to 349. Patient denies history of diabetes. Liver function okay. Lipase normal. Troponin negative. Patient urine analysis shows large ketones as well as blood. Her micro is positive for blood and has been sent for culture. CT scan shows no pulmonary embolus. She has left lower lobe consolidation consistent with pneumonia. She does have some mediastinal and hilar lymph nodes. CT of abdomen and pelvis is unremarkable. No evidence of obstruction. No significant intestinal edema or swelling. Patient is doing better with the Toradol and Lidoderm. She is ordered for ceftriaxone and doxycycline IV. She is continuing on fluids. Case discussed with hospitalist, Dr. Lockett. Patient to be admitted for management. Medical Records Medical records reviewed: Yes I reviewed the patient's medical records. Lab Data Lab results reviewed: Yes I reviewed the patient's lab results. ECG Data Attestation: I personally reviewed and interpreted this ECG (s) as follows: Prior ECG tracings: not available for review Interpretation: Sinus tachycardia at a rate of 103. Normal axis and interval. No acute ST changes. HPI General Mode of arrival: ambulatory . Date/Time Provider Initiated Documentation: 06/28/19 18:37 . Limitations to Documentation: no limitations . Information obtained by: patient, RN notes reviewed and old records reviewed . HPI Narrative: Patient presents to ED with chief complaint of left thoracic back pain. Patient reports fever, sweats, chills with associated nausea, vomiting and diarrhea for the last 3 days. She reports a history of Crohn's disease. She has just finished a steroid burst and taper. Currently does not have a GI doc. She does have primary care. She endorses that the back pain is chronic in nature but worse. She is unable to take a breath because of pain. She feels short of breath. She does have history of COPD and continues to smoke. She complains of cramping abdominal pain. She denies urinary symptoms. She reports that she does continue to make urine. Related Data Home Medications Medication Instructions Recorded Confirmed escitalopram oxalate [Lexapro] 40 mg PO DAILY 05/11/17 06/28/19 lamotrigine [Lamictal] 100 mg PO DAILY 05/11/17 06/28/19 Combivent 1 puff INHALATION QID 05/29/17 06/28/19 albuterol sulfate [ProAir HFA] 200 puff INHALATION Q4H PRN PRN #1 03/07/18 06/28/19 [email or web address] Symbicort 2 puff IH Q12H #10.2 gm 11/16/18 06/28/19 dextroamphetamine-amphetamine 40 mg PO DAILY 05/24/19 06/28/19 [Adderall] albuterol sulfate [Ventolin HFA] 1 puff INHALATION Q4H PRN PRN 05/25/19 06/28/19 omeprazole 40 mg PO DAILY #30 cap 05/26/19 06/28/19 oxycodone-acetaminophen [Percocet] 1 tab PO Q4H PRN #14 tab 05/26/19 06/28/19 Previous Rx's Medication Instructions Recorded albuterol sulfate [ProAir HFA] 200 puff INHALATION Q4H PRN PRN #1 03/07/18 [email or web address] Symbicort 2 puff IH Q12H #10.2 gm 11/16/18 omeprazole 40 mg PO DAILY #30 cap 05/26/19 oxycodone-acetaminophen [Percocet] 1 tab PO Q4H PRN #14 tab 05/26/19 Allergies Allergy/AdvReac Type Severity Reaction Status Date / Time azithromycin [From Zithromax] Allergy Severe hives Unverified 06/28/19 18:40 aripiprazole Allergy Intermediate Nausea Unverified 06/28/19 18:40 chocolate flavor Allergy Unknown Unverified 06/28/19 18:40 coconut Allergy Unknown Unverified 06/28/19 18:40 erythromycin base Allergy Unknown Unverified 06/28/19 18:40 mushroom Allergy Unknown Unverified 06/28/19 18:40 pollen extracts Allergy Unknown Unverified 06/28/19 18:40 nicotine AdvReac Other (See Unverified 06/28/19 18:40 Comment) DUST Allergy Unknown Uncoded 06/28/19 18:40 General Stated Complaint: Chest/Rib NIC: 3 Review of Systems Review of Systems Narrative: 07/18 Review of Systems completed and is negative except as stated above in HPI (Systems reviewed: Const, Eyes, ENT, Resp, CV, GI, , MSK, Skin, Neuro) PFSH Medical History Abscess of sigmoid colon Bipolar affective disorder Bleeding external hemorrhoids Borderline personality disorder COPD (chronic obstructive pulmonary disease) Crohns disease DDD (degenerative disc disease), lumbosacral Depression with anxiety Disassociation disorder Major depressive disorder PTSD (post-traumatic stress disorder) Surgical History Exam under Anesthesia (09/15/17) anal exam, anal fissure Social History Smoking/Tobacco Use Status: Current every day Tobacco Type: cigarettes Alcohol Intake: never Drug use: Never Substance use type: does not use Do you feel safe at home: Yes Do you feel safe in your relationship?: Yes Exam Narrative Exam Narrative: Vitals: Afebrile. Mild tachycardia. Normal blood pressure and O2 saturation on room air. Const: WDWN female who is uncomfortable and crying. HEENT: NC/AT. Normal facial exam. TMs normal bilaterally. OP clear. Eyes: Normal conjunctiva and sclera. Neck: Supple. Trachea midline. Lungs: No respiratory distress but some splinting due to pain. There is some expiratory wheezing. Rhonchi in the left lung. Cor: RRR without murmur/gallop. Good radial pulses. GI: Soft. NT/ND. No guarding or rebound. Back: No CVAT. Neuro: A+O x 3. CN grossly in tact. Good strength and no focal deficit. Ext: No C/C/E. No calf tenderness. Skin: Warm and dry without rash. Course Vital Signs Vital signs: Vital Signs Temperature 98.6 F 06/28/19 18:36 Pulse 100 H 06/28/19 18:36 Respiratory Rate 18 06/28/19 18:36 Blood Pressure 126/73 06/28/19 18:36 Pulse Oximetry 96 06/28/19 18:36 Temperature 98.6 F 06/28/19 18:36 Temperature Source Skin 06/28/19 18:36 Pulse 100 H 06/28/19 18:36 Respiratory Rate 18 06/28/19 18:36 Respiratory Effort Non-Labored 06/28/19 18:39 Blood Pressure 126/73 06/28/19 18:36 Blood Pressure Position Sitting 06/28/19 18:36 Pulse Oximetry 96 06/28/19 18:36 Oxygen Delivery Method Room Air 06/28/19 18:36 Oxygen Flow Rate 0 06/28/19 18:36
[2019-06-28] MEDS: Ketorolac 30 MG/ML VIAL IVP (20:57)
[2019-06-28] MEDS: Lidocaine 5% Patch 1 PATCH TP (21:00)
[2019-06-28 21:02] LABS: Bilirubin Negative (Negative); Blood Large (Negative); Clarity Clear (Clear); Glucose 500 mg/dL (Negative); Ketones >=160 mg/dL (Negative); Leukocyte Esterase Negative (Negative); Nitrite Negative (Negative); Specific Gravity <= 1.005 (1.005-1.025); pH 6.5 (5-8)
[2019-06-28 21:03] LABS: ALT 56 U/L (14-59); AST 46 U/L (15-37); Alkaline Phosphatase 158 U/L (46-116); Anion Gap 12.5 mmol/L (3-11); BUN 6 mg/dL (7-18); CO2 25.5 mmol/L (21.0-32.0); CREATININE 0.82 mg/dL (0.55-1.02); Calcium 9.5 mg/dL (8.5-10.1); Chloride 91 mmol/L (98-107); Glucose 349 mg/dL (70-100); Lipase 188 U/L (73-393); Magnesium 1.7 mg/dL (1.8-2.4); Sodium 129 mmol/L (136-145); Total Protein 8.2 g/dL (6.4-8.2)
[2019-06-28 21:04] LABS: Potassium 2.9 mmol/L (3.5-5.1); Troponin I < 0.05 ng/mL (0.00-0.06)
[2019-06-28 21:05] LABS: Abs Immature Grans 0.13 k/cumm (0.0-0.09); Absolute Basophil Count 0.04 k/cumm (0.0-0.2); Absolute Lymphocyte Count 1.89 k/cumm (1.2-3.4); Absolute Monocyte Count 1.73 k/cumm (0.11-0.7); Absolute Neutrophil Count 16.35 k/cumm (1.2-6.7); Basophils % 0.2; HCT 39.9 % (36.0-46.0); HGB 14.4 g/dL (12.0-15.5); Immature Grans % 0.6; Lymphocytes % 9.4; Mean Corp. HGB Concentration 36.1 g/dL (32.0-36.0); Mean Corpuscular Hemoglobin 33.3 pg (27.0-33.0); Mean Corpuscular Volume 92.4 fL (80-95); Mean Platelet Volume 9.5 fL (8.0-11.0); Monocytes % 8.6; Neutrophils % 81.2; Platelet Count 302 x1000/uL (130-400); RBC 4.32 m/cumm (4.00-5.20); RBC Distribution Width 12.1 % (11.7-14.6); White Blood Cell Count 20.13 k/cumm (4.4-10.8)
[2019-06-28 21:10] LABS: Bacteria Few HPF (Negative); C & S Indicated? Yes; Casts Negative LPF (Negative); Crystals Negative HPF (Negative); Epithelial Cells Few HPF (Negative); Mucus Negative (Negative); Other Cells Negative (Negative); RBC >50 (0-2)
[2019-06-28] MEDS: Omnipaque 350 MG/ML 100 ML BTL IJ (21:14)
[2019-06-28 21:16] LABS: Diff Comment Diff Reviewed; RBC Morphology Normal
--- NOTE | 2019-06-28 21:30 | DI.CT_ITS ---
EXAM: CT CHEST PE ABD PELVIS W CLINICAL HISTORY: upper left back pain; N/V/D; abd. pain. TECHNIQUE: The study was carried out with intravenous injection of 100 cc of Omnipaque 350. CT angiography of the abdomen and pelvis was carried out with intravenous injection of 100 cc of Omni paque 350. COMPARISON: CT ABDOMEN/ PELVIS CTA from 05/24/2019 FINDINGS: Pulmonary arteries are unremarkable. There is no evidence of pulmonary embolic disease. The aorta is unremarkable. There is a moderate-size region of left lower lobe consolidation. Lungs have a mosaic ground-glass attenuation. There is no evidence of a pneumothorax or pleural effusion. The heart is n ot enlarged. There is no evidence of RV strain. There is no pericardial effusion. There are mildly en larged mediastinal and hilar lymph nodes. There is no acute bony abnormality. The soft tissues are u nremarkable. ABDOMEN AND PELVIC: There is no evidence of an aortic aneurysm or aortic dissection. The celiac and mesenteric arteries appear intact. The renal arteries are intact abnormality. No abnormality involving the right iliac or left iliac artery is seen. There is fatty infiltration of the liver. The gallbladder is intact. There are no stones or ductal d ilatation. Pancreas, spleen, adrenals, kidneys and bowel are unremarkable. There is no evidence of o bstruction or mucosal thickening. There is nothing to suggest an acute appendix. The bladder is unr emarkable. The reproductive organs are evaluated and a fibroid uterus is apparent. There is no evidence of free air or free fluid in the intraperitoneal space. No acute bony abnormalit y is seen. Soft tissues unremarkable. There is no evidence of lymphadenopathy. IMPRESSION: Findings consistent with a left lower lobe pneumonitis. There is small airway disease. Slightly enla rged mediastinal lymph nodes are likely reactive but could be further evaluated with a follow-up CT i n 3 months. No acute findings in the abdomen or pelvis.
[2019-06-28] MEDS: POTASSIUM CHLORIDE 10 MEQ/100 ML BAG 100 MEQ IVPB ×2 (22:01→23:10)
[2019-06-28] MEDS: Lactated Ringers 1,000 ML 1000 ML IV (22:04)
--- NOTE | 2019-06-28 22:23 | DI.VRAD_ITS ---
PROCEDURE INFORMATION: Exam: CT Angiography Chest With Contrast Exam date and time: 06/28/2019 8:26 PM Clinical history: 49 years old, female; Other: Upper left back pain; N/v/d; Abd. Pain; Prior surgery; Surgery date: 6+ months; Surgery type: Fissure; Patient HX: History of crohn's TECHNIQUE: Imaging protocol: Computed tomographic angiography of the chest with intravenous contrast. 3D rendering: MIP reconstructed images were created and reviewed. Radiation optimization: All CT scans at this facility use at least one of these dose optimization techniques: automated exposure control; mA and/or kV adjustment per patient size (includes targeted exams where dose is matched to clinical indication); or iterative reconstruction. Contrast material: OMNIPAQUE 350; Contrast volume: 100 ml; Contrast route: IV; COMPARISON: CT ABDOMEN/ PELVIS CTA 05/24/2019 11:42 PM FINDINGS: Pulmonary arteries: Unremarkable. No evidence of pulmonary emboli. Aorta: Unremarkable. No aortic aneurysm. No aortic dissection. Lungs: Moderate-sized left lower lobe consolidation. Lungs have mosaic groundglass attenuation. Pleural space: Unremarkable. No pneumothorax. No pleural effusion. Heart: Unremarkable. No pericardial effusion. No obvious heart strain. Lymph nodes: Slightly enlarged mediastinal and hilar lymph nodes. Bones/joints: Scoliosis. Soft tissues: Unremarkable. IMPRESSION: Left lower lobe pneumonia. Small airways disease. Slightly enlarged mediastinal lymph nodes are likely reactive but would consider a three-month followup chest CT. PROCEDURE INFORMATION: Exam: CT Angiography Abdomen and Pelvis With Contrast Exam date and time: 06/28/2019 8:26 PM Clinical history: 49 years old, female; Other: Upper left back pain; N/v/d; Abd. Pain; Prior surgery; Surgery date: 6+ months; Surgery type: Fissure; Patient HX: History of crohn's TECHNIQUE: Imaging protocol: Computed tomographic angiography of the abdomen and pelvis with intravenous contrast material. 3D rendering: MIP reconstructed images were created and reviewed. Radiation optimization: All CT scans at this facility use at least one of these dose optimization techniques: automated exposure control; mA and/or kV adjustment per patient size (includes targeted exams where dose is matched to clinical indication); or iterative reconstruction. Contrast material: OMNIPAQUE 350; Contrast volume: 100 ml; Contrast route: IV; COMPARISON: CT ABDOMEN/ PELVIS CTA 05/24/2019 11:42 PM FINDINGS: VASCULATURE: Aorta: No aortic aneurysm. No aortic dissection. Celiac trunk and mesenteric arteries: No occlusion or significant stenosis. Renal arteries: No occlusion or significant stenosis. Right iliac arteries: No occlusion or significant stenosis. Left iliac arteries: No occlusion or significant stenosis. ABDOMEN: Liver: Mild fatty infiltration of the liver. Gallbladder and bile ducts: Unremarkable. No calcified stones. No ductal dilation. Pancreas: Unremarkable. No mass. No ductal dilation. Spleen: Unremarkable. No splenomegaly. Adrenals: Unremarkable. No mass. Kidneys and ureters: Unremarkable. No solid mass. No hydronephrosis. Stomach and bowel: Unremarkable. No obstruction. No mucosal thickening. Appendix: No evidence of appendicitis. PELVIS: Bladder: Unremarkable. No mass. Reproductive: Fibroid uterus. ABDOMEN and PELVIS: Intraperitoneal space: Unremarkable. No free air. No significant fluid collection. Bones/joints: No acute fracture. No dislocation. Soft tissues: Unremarkable. Lymph nodes: Unremarkable. No enlarged lymph nodes. IMPRESSION: No acute findings. Dictated and Authenticated by: Gil Wyatt MD. Ordering:CRISTÓBAL Garcia MD
--- NOTE | 2019-06-28 22:25 | NUR.NOTE ---
Nursing Note:Pt resting in bed with eyes closed, reports that pain has decreased.
--- NOTE | 2019-06-28 23:18 | W.PM.HP.N ---
Date of service: 06/28/19 Time of Service: 23:19 Assessment and Plan Assessment and plan (1) Pneumonia: Status: Acute Assessment and plan: Community acquired pneumonia. Rocephin and Doxy satisfactory empiric regimen. I suspect the additional symptomatology (N/V/D) are either non-specific or incidental gastrroeneteritis; suffice to say no signs of flare of IBD. The new diagnosis of DM is noted, perhaps exacerbated by recent steroids. Will cover with SS insulin for now but will see where sugars level out; may be able to manage with oral regimen. Will continue usual meds as is, along with potassium replacement and prn analgesics. History of Present Illness History of Present Illness Chief Complaint: cough Narrative: 49 female smoker. here with 3 days of dry cough, left sided pleuritic CP. In ER left sided pneumonia noted, patient given Rocephin and Doxy. Patient has additional history of Crohns disease, says baseline is 8-10 stool/day. Current symptom report includes nausea, vomiting and diarrhea, but states only one stool today. No abdominal pain. Additional findings of glucose 349. Patient denies h/o DM but review shows sustained hyperglycemia dating back to at least 2014. Potassium 2.9 noted, given KCl 10 IV along with LR. EKG WNL. Review of Systems Review of Systems ROS Unobtainable: All systems reviewed & are unremarkable except as noted in HPI and below PFSH Medical History Abscess of sigmoid colon Bipolar affective disorder Bleeding external hemorrhoids Borderline personality disorder COPD (chronic obstructive pulmonary disease) Crohns disease DDD (degenerative disc disease), lumbosacral Depression with anxiety Disassociation disorder Major depressive disorder PTSD (post-traumatic stress disorder) Surgical History Exam under Anesthesia (09/15/17) anal exam, anal fissure Social History Smoking/Tobacco Use Status: Current every day Tobacco Type: cigarettes Alcohol Intake: never Drug use: Never Substance use type: does not use Do you feel safe at home: Yes Do you feel safe in your relationship?: Yes Meds Home Medications and Allergies Home Medications Medication Instructions Recorded Confirmed Type escitalopram oxalate [Lexapro] 40 mg PO DAILY 05/11/17 06/28/19 History lamotrigine [Lamictal] 100 mg PO DAILY 05/11/17 06/28/19 History Combivent 1 puff INHALATION QID 05/29/17 06/28/19 History albuterol sulfate [ProAir HFA] 200 puff INHALATION Q4H PRN PRN #1 03/07/18 06/28/19 Rx [email or web address] Symbicort 2 puff IH Q12H #10.2 gm 11/16/18 06/28/19 Rx dextroamphetamine-amphetamine 40 mg PO DAILY 05/24/19 06/28/19 History [Adderall] albuterol sulfate [Ventolin HFA] 1 puff INHALATION Q4H PRN PRN 05/25/19 06/28/19 History omeprazole 40 mg PO DAILY #30 cap 05/26/19 06/28/19 Rx oxycodone-acetaminophen [Percocet] 1 tab PO Q4H PRN #14 tab 05/26/19 06/28/19 Rx Allergies Allergy/AdvReac Type Severity Reaction Status Date / Time azithromycin [From Zithromax] Allergy Severe hives Unverified 06/28/19 18:40 aripiprazole Allergy Intermediate Nausea Unverified 06/28/19 18:40 chocolate flavor Allergy Unknown Unverified 06/28/19 18:40 coconut Allergy Unknown Unverified 06/28/19 18:40 erythromycin base Allergy Unknown Unverified 06/28/19 18:40 mushroom Allergy Unknown Unverified 06/28/19 18:40 pollen extracts Allergy Unknown Unverified 06/28/19 18:40 nicotine AdvReac Other (See Unverified 06/28/19 18:40 Comment) DUST Allergy Unknown Uncoded 06/28/19 18:40 Exam Narrative Exam Narrative: 126/73, 100, 37.0, 18, 96%. HEENT AT/NC; neck supple; lungs rales left base; heart RRR w/o MRG; abdomen soft and NT; extr: no edema, pulse equal; neuro non-focal Results Labs Result diagrams: 06/28/19 20:40 06/28/19 20:40 Labs: Laboratory Results - last 24 hr 06/28/19 06/28/19 06/28/19 20:40 20:40 20:45 WBC 20.13 H RBC 4.32 Hgb 14.4 Hct 39.9 MCV 92.4 MCH 33.3 H MCHC 36.1 H RDW 12.1 Plt Count 302 MPV 9.5 Immature Gran % 0.6 Neutrophils % 81.2 Lymphocytes % 9.4 Monocytes % 8.6 Eosinophils % 0.0 Basophils % 0.2 Absolute Neutrophils 16.35 H Absolute Lymphocytes 1.89 Absolute Monocytes 1.73 H Absolute Eosinophils 0.00 Absolute Basophils 0.04 Differential Comment Diff reviewed RBC Morphology Normal Sodium 129 L Potassium 2.9 L* Chloride 91 L Carbon Dioxide 25.5 Anion Gap 12.5 H BUN 6 L Creatinine 0.82 Estimated GFR/1.73 m2 >= 60.00 Glucose 349 H Calcium 9.5 Magnesium 1.7 L Total Bilirubin 1.0 AST 46 H ALT 56 Alkaline Phosphatase 158 H Troponin I < 0.05 Total Protein 8.2 Albumin 3.0 L Lipase 188 Urine Color Yellow Urine Clarity Clear Urine pH 6.5 Ur Specific [place] <= 1.005 Urine Protein 30 H Urine Ketones >=160 H Urine Blood Large H Urine Nitrite Negative Urine Bilirubin Negative Urine Urobilinogen 2.0 H Ur Leukocyte Esterase Negative Urine RBC >50 H Urine WBC 5-10 Ur Epithelial Cells Few Urine Crystals Negative Urine Bacteria Few Urine Casts Negative Urine Mucus Negative Urine Other Negative Ur Culture Indicated? Yes Urine Glucose 500 H Last Vital Signs Temp 37.0 C 06/28/19 18:36 Pulse 100 H 06/28/19 18:36 Resp 18 06/28/19 18:36 BP 126/73 06/28/19 18:36 Pulse Ox 96 06/28/19 18:36
[2019-06-28 23:37] VITALS: BP 99/59; PULSE 89; PULSE 93; RESP 18; RESP 26; O2SAT 92; O2SAT 96
[2019-06-29] VITALS (9 sets, daily range): BP systolic 100–144; BP diastolic 64–79; PULSE 71–99; RESP 18–28; TEMP 36.3–37; O2SAT 95–99
[2019-06-29] MEDS: cefTRIAXone 2 GM/50 ML BAG IVPB (00:16)
[2019-06-29] MEDS: POTASSIUM CHLORIDE/0.9% NACL 1,000 ML 125 MEQ IV ×3 (00:40→18:40)
[2019-06-29] MEDS: Normal Saline Flush 10 ML SYR IVP (01:10)
[2019-06-29] MEDS: DOXYCYCLINE 100 MG in Normal Saline 100 ML IVPB ×2 (01:11→14:50)
[2019-06-29] MEDS: oxyCODONE 5 mg/Acetaminophen 325 mg TAB 1 TAB PO ×5 (04:10→18:43)
[2019-06-29 07:19] LABS: HCT 33.7 % (36.0-46.0); HGB 11.8 g/dL (12.0-15.5); Mean Corpuscular Volume 94.1 fL (80-95); Mean Platelet Volume 9.5 fL (8.0-11.0); Platelet Count 294 x1000/uL (130-400); RBC 3.58 m/cumm (4.00-5.20); RBC Distribution Width 12.3 % (11.7-14.6); White Blood Cell Count 16.02 k/cumm (4.4-10.8)
[2019-06-29 07:54] LABS: Anion Gap 8.5 mmol/L (3-11); BUN 7 mg/dL (7-18); CO2 26.5 mmol/L (21.0-32.0); CREATININE 0.54 mg/dL (0.55-1.02); Calcium 8.5 mg/dL (8.5-10.1); Chloride 102 mmol/L (98-107); Glucose 190 mg/dL (70-100); Sodium 137 mmol/L (136-145)
[2019-06-29] MEDS: Ipratropium/Albuterol 4 GM 120 PUFF INH IH ×4 (07:55→19:37)
[2019-06-29 07:57] LABS: Potassium 2.7 mmol/L (3.5-5.1)
[2019-06-29] MEDS: lamoTRIgine 25 MG TAB 100 MG PO (08:26)
[2019-06-29] MEDS: Omeprazole 20 MG CAPCR 40 MG PO (08:26)
[2019-06-29] MEDS: Escitalopram 20 MG TAB 40 MG PO (08:27)
[2019-06-29] MEDS: Insulin Aspart 300 UNITS/3 ML PEN SC ×4 (09:04→21:55)
[2019-06-29] MEDS: Potassium Chloride 20 MEQ TABCR 40 MEQ PO ×2 (09:30→19:36)
[2019-06-29] MEDS: Budesonide/Formoterol 160/4.5 6 GM 60 PUFF INH IH ×2 (09:31→19:37)
[2019-06-29] MEDS: POTASSIUM CHLORIDE 20 MEQ/100 ML BAG 50 MEQ IVPB ×2 (10:10→12:54)
[2019-06-29 11:42] LABS: Hemoglobin A1C 8.6 % (4.5-6.2)
[2019-06-29] MEDS: MAGNESIUM SULFATE 2 GM/50 ML BAG IVPB (12:09)
--- NOTE | 2019-06-29 15:26 | INITIAL_ITS ---
- If Service Date Differs Date of service: 06/29/19 Time of Service: 15:26 Care Management Initial Assess REASON FOR HOSPITALIZATION:: Pneumonia PAST MEDICAL HISTORY/PAST SURGICAL HISTORY:: Medical History. Abscess of sigmoid colon. Bipolar affective disorder. Bleeding external hemorrhoids. Borderline personality disorder. COPD (chronic obstructive pulmonary disease). Crohns disease. DDD (degenerative disc disease), lumbosacral. Depression with anxiety. Disassociation disorder. Major depressive disorder. PTSD (post- traumatic stress disorder). Surgical History. Exam under Anesthesia (09/15/17). anal exam, anal fissure PREVIOUS FUNCTIONAL STATUS/SOCIAL/FAMILY SUPPORTS:: Sunni lives in [facility] with her . She states that she has 12 children and 16 grandchildren. Her son, David, helps her clean at home, but otherwise she is independent at baseline. She has a dog (a white pitbull), Yuli, that she is very close to. 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 CURRENT FUNCTIONAL STATUS:: Sunni was sitting up in bed when CM met with her. She was pleasant and engaged in coversation. She reported that she now has a new diagnosis of diabetes. CM asked how she felt about that and she said that it's just another thing she has to deal with. CM asked if she would like to talk to someone about diabetes education, which she was agreeable to. CM also asked if she has a therapist in the community to help her process her emotions. She stated that she does see a therapist regularly. When CM asked if she knew what h er plan was she stated that she believes she will be here overnight, which she was agreeable to as she is receiving IV fluids. CM will continue to follow. ADVANCE DIRECTIVES:: Not interested. Has patient been provided with information about the portal?: Yes Did the patient sign up for the portal?: No (Not interested) CODE STATUS:: Full Code INSURANCE COVERAGE / FINANCIAL ISSUES:: [facility] CURRENT HOME/COMMUNITY SERVICES/EQUIPMENT:: Sunni uses [facility]. She also sees a therapist in the community. PRIMARY CARE PHYSICIAN:: Jewel Parham MD POTENTIAL DISCHARGE NEEDS:: Evaluations for further needs, follow up appointments. PATIENT/FAMILY EDUCATION NEEDS:: Review discharge instructions, any limitations regarding dietary restrictions, diabetes education, discussion of self care needs including Ask Me Three ANTICIPATED BARRIERS TO DISCHARGE:: None identified at this time. TRANSPORTATION:: Anticipate Sunni will transport home via [facility] bus. PLAN:: Anticipate Sunni will return home with no additional services. Follow up with PCP. CM will continue to follow, providing discharge planning and support.
--- NOTE | 2019-06-29 18:36 | PGE_ITS ---
Date of Service Date of service: 06/29/19 Time of Service: 18:37 Assessment and Plan Assessment and plan (1) CAP (community acquired pneumonia): Status: Acute Assessment and plan: Continue doxycycline/rocephin. Intensify antitussives. (2) COPD (chronic obstructive pulmonary disease): Status: Chronic Assessment and plan: Provide prn nebs. Continue symbicort. Consider scheduling nebs and starting steroids if not better tomorrow. (3) Pleuritic chest pain: Status: Acute Assessment and plan: schedule NSAIDs and add tylenol. Lidacaine patches. Antitussives. IS. (4) Crohns disease: Status: None Assessment and plan: stable - follow up as outpatient Qualifiers: Gastrointestinal tract location: large intestine Digestive disease complication type: without complication Qualified Code(s): K50.10 - Crohn's disease of large intestine without complications (5) Discharge planning issues: Status: Acute Assessment and plan: Full code (6) DVT prophylaxis: Status: Acute Assessment and plan: Heparin SC/TEDS/SCDs Subjective Subjective Interval history since last seen: Ms Salomon states that her back is extremely painful. She says it really hurts to breathe and cough because of it. She says that usually percocet works better for this pain than dilaudid. Denies dizziness, nausea. Complains of a very painful cough. Exam Narrative Exam Narrative: General: middle-aged female who has a harsch cough and is shaking from pain when she tries to sit up HEENT: EOMI, MMM Heart: RRR, no m/r/g, tachycardic Lungs: coarse breath sounds B, coughing GI: abdomen is soft, nontender, nondistended Extremities: no e/c/c BLE's Objective Objective Clinical Data: Abnormal lab results 06/28/19 06/28/19 06/28/19 Range/Units 20:40 20:40 20:45 WBC 20.13 H (4.4-10.8) k/cumm RBC (4.00-5.20) m/cumm Hgb (12.0-15.5) g/dL Hct (36.0-46.0) % MCH 33.3 H (27.0-33.0) pg MCHC 36.1 H (32.0-36.0) g/dL Absolute Neutrophils 16.35 H (1.2-6.7) k/cumm Absolute Monocytes 1.73 H (0.11-0.7) k/cumm Sodium 129 L (136-145) mmol/L Potassium 2.9 L* (3.5-5.1) mmol/L Chloride 91 L (98-107) mmol/L Anion Gap 12.5 H (3-11) mmol/L BUN 6 L (7-18) mg/dL Creatinine (0.55-1.02) mg/dL Glucose 349 H (70-100) mg/dL Hemoglobin A1c (4.5-6.2) % Magnesium 1.7 L (1.8-2.4) mg/dL AST 46 H (15-37) U/L Alkaline Phosphatase 158 H (46-116) U/L Albumin 3.0 L (3.4-5.0) g/dL Urine Protein 30 H (Negative) mg/dL Urine Ketones >=160 H (Negative) mg/dL Urine Blood Large H (Negative) Urine Urobilinogen 2.0 H (Up TO 0.2) EU/dL Urine RBC >50 H (0-2) Urine Glucose 500 H (Negative) mg/dL 06/29/19 06/29/19 06/29/19 Range/Units 06:30 06:30 06:30 WBC 16.02 H (4.4-10.8) k/cumm RBC 3.58 L (4.00-5.20) m/cumm Hgb 11.8 L D (12.0-15.5) g/dL Hct 33.7 L (36.0-46.0) % MCH (27.0-33.0) pg MCHC (32.0-36.0) g/dL Absolute Neutrophils (1.2-6.7) k/cumm Absolute Monocytes (0.11-0.7) k/cumm Sodium (136-145) mmol/L Potassium 2.7 L* (3.5-5.1) mmol/L Chloride (98-107) mmol/L Anion Gap (3-11) mmol/L BUN (7-18) mg/dL Creatinine 0.54 L (0.55-1.02) mg/dL Glucose 190 H D (70-100) mg/dL Hemoglobin A1c 8.6 H (4.5-6.2) % Magnesium (1.8-2.4) mg/dL AST (15-37) U/L Alkaline Phosphatase (46-116) U/L Albumin (3.4-5.0) g/dL Urine Protein (Negative) mg/dL Urine Ketones (Negative) mg/dL Urine Blood (Negative) Urine Urobilinogen (Up TO 0.2) EU/dL Urine RBC (0-2) Urine Glucose (Negative) mg/dL Vital Signs Temperature 36.7 C 06/29/19 16:07 Temperature Source Tympanic 06/29/19 16:07 Pulse 96 H 06/29/19 16:07 Pulse Rhythm Regular 06/29/19 12:18 Pulse 89 06/28/19 23:37 Respiratory Rate 18 06/29/19 16:07 Respiratory Effort 06/29/19 12:18 Respiratory Depth Normal 06/29/19 12:18 Respiratory Pattern Normal 06/29/19 12:18 Blood Pressure 110/71 06/29/19 16:07 Blood Pressure Position Sitting 06/28/19 18:36 Pulse Oximetry 99 06/29/19 16:07 Oxygen Delivery Method Room Air 06/29/19 16:07 Oxygen Flow Rate 0 06/29/19 16:07 Pain Level 0 06/29/19 16:07 Comment 06/29/19 11:55 Intake & Output 06/28/19 06/29/19 06/29/19 23:59 11:59 23:59 Intake Total 1100 / 1100 2150 / 2250 100 / 2250 Balance 1100 / 1100 2150 / 2250 100 / 2250 Weight 72.575 kg 71.9 kg Intake: IV 1100 / 1100 1260 / 1360 100 / 1360 Oral 890 / 890 Laboratory Results WBC 16.02 k/cumm (4.4-10.8) H 06/29/19 06:30 RBC 3.58 m/cumm (4.00-5.20) L 06/29/19 06:30 Hgb 11.8 g/dL (12.0-15.5) L D 06/29/19 06:30 Hct 33.7 % (36.0-46.0) L 06/29/19 06:30 MCV 94.1 fL (80-95) 06/29/19 06:30 MCH 33.0 pg (27.0-33.0) 06/29/19 06:30 MCHC 35.0 g/dL (32.0-36.0) 06/29/19 06:30 RDW 12.3 % (11.7-14.6) 06/29/19 06:30 Plt Count 294 x1000/uL (130-400) 06/29/19 06:30 MPV 9.5 fL (8.0-11.0) 06/29/19 06:30 Immature Gran % 0.6 06/28/19 20:40 Neutrophils % 81.2 06/28/19 20:40 Lymphocytes % 9.4 06/28/19 20:40 Monocytes % 8.6 06/28/19 20:40 Eosinophils % 0.0 06/28/19 20:40 Basophils % 0.2 06/28/19 20:40 Absolute Neutrophils 16.35 k/cumm (1.2-6.7) H 06/28/19 20:40 Absolute Lymphocytes 1.89 k/cumm (1.2-3.4) 06/28/19 20:40 Absolute Monocytes 1.73 k/cumm (0.11-0.7) H 06/28/19 20:40 Absolute Eosinophils 0.00 k/cumm (0.0-0.7) 06/28/19 20:40 Absolute Basophils 0.04 k/cumm (0.0-0.2) 06/28/19 20:40 Differential Comment Diff reviewed 06/28/19 20:40 RBC Morphology Normal 06/28/19 20:40 Sodium 137 mmol/L (136-145) 06/29/19 06:30 Potassium 2.7 mmol/L (3.5-5.1) L* 06/29/19 06:30 Chloride 102 mmol/L (98-107) 06/29/19 06:30 Carbon Dioxide 26.5 mmol/L (21.0-32.0) 06/29/19 06:30 Anion Gap 8.5 mmol/L (3-11) 06/29/19 06:30 BUN 7 mg/dL (7-18) 06/29/19 06:30 Creatinine 0.54 mg/dL (0.55-1.02) L 06/29/19 06:30 Estimated GFR/1.73 m2 >= 60.00 (mL/min/1.73m2) 06/29/19 06:30 Glucose 190 mg/dL (70-100) H D 06/29/19 06:30 Hemoglobin A1c 8.6 % (4.5-6.2) H 06/29/19 06:30 Calcium 8.5 mg/dL (8.5-10.1) 06/29/19 06:30 Magnesium 1.7 mg/dL (1.8-2.4) L 06/28/19 20:40 Total Bilirubin 1.0 mg/dL (0.2-1.0) 06/28/19 20:40 AST 46 U/L (15-37) H 06/28/19 20:40 ALT 56 U/L (14-59) 06/28/19 20:40 Alkaline Phosphatase 158 U/L (46-116) H 06/28/19 20:40 Troponin I < 0.05 ng/mL (0.00-0.06) 06/28/19 20:40 Total Protein 8.2 g/dL (6.4-8.2) 06/28/19 20:40 Albumin 3.0 g/dL (3.4-5.0) L 06/28/19 20:40 Lipase 188 U/L (73-393) 06/28/19 20:40 Urine Color Yellow (Yellow) 06/28/19 20:45 Urine Clarity Clear (Clear) 06/28/19 20:45 Urine pH 6.5 (5-8) 06/28/19 20:45 Ur Specific [place] <= 1.005 (1.005-1.025) 06/28/19 20:45 Urine Protein 30 mg/dL (Negative) H 06/28/19 20:45 Urine Ketones >=160 mg/dL (Negative) H 06/28/19 20:45 Urine Blood Large (Negative) H 06/28/19 20:45 Urine Nitrite Negative (Negative) 06/28/19 20:45 Urine Bilirubin Negative (Negative) 06/28/19 20:45 Urine Urobilinogen 2.0 EU/dL (Up TO 0.2) H 06/28/19 20:45 Ur Leukocyte Esterase Negative (Negative) 06/28/19 20:45 Urine RBC >50 (0-2) H 06/28/19 20:45 Urine WBC 5-10 HPF (0-5) 06/28/19 20:45 Ur Epithelial Cells Few HPF (Negative) 06/28/19 20:45 Urine Crystals Negative HPF (Negative) 06/28/19 20:45 Urine Bacteria Few HPF (Negative) 06/28/19 20:45 Urine Casts Negative LPF (Negative) 06/28/19 20:45 Urine Mucus Negative (Negative) 06/28/19 20:45 Urine Other Negative (Negative) 06/28/19 20:45 Ur Culture Indicated? Yes 06/28/19 20:45 Urine Glucose 500 mg/dL (Negative) H 06/28/19 20:45
[2019-06-29] MEDS: guaiFENesin 600 MG TABCR PO (19:36)
[2019-06-29] MEDS: Ketorolac 30 MG/ML VIAL IVP (19:37)
[2019-06-29] MEDS: Heparin 5,000 UNITS/ML VIAL 5000 UNITS SC (21:54)
[2019-06-29] MEDS: oxyCODONE 5 mg/Acetaminophen 325 mg TAB 2 TAB PO (23:27)
[2019-06-29] MEDS: cefTRIAXone 1 GM/50 ML BAG IV (23:30)
[2019-06-30] VITALS (9 sets, daily range): BP systolic 122–163; BP diastolic 72–94; PULSE 64–90; RESP 1–24; TEMP 35.6–36.9; O2SAT 95–99
[2019-06-30] MEDS: POTASSIUM CHLORIDE/0.9% NACL 1,000 ML 125 MEQ IV ×2 (01:54→11:44)
[2019-06-30] MEDS: Ketorolac 30 MG/ML VIAL IVP ×4 (01:56→19:57)
[2019-06-30] MEDS: DOXYCYCLINE 100 MG in Normal Saline 100 ML IVPB ×2 (01:56→15:31)
[2019-06-30] MEDS: Heparin 5,000 UNITS/ML VIAL 5000 UNITS SC ×3 (06:05→21:18)
[2019-06-30 07:33] LABS: Abs Immature Grans 0.06 k/cumm (0.0-0.09); Absolute Basophil Count 0.03 k/cumm (0.0-0.2); Absolute Eosinophil Count 0.17 k/cumm (0.0-0.7); Absolute Lymphocyte Count 2.24 k/cumm (1.2-3.4); Absolute Neutrophil Count 5.78 k/cumm (1.2-6.7); Basophils % 0.3; Eosinophils % 1.9; HCT 33.2 % (36.0-46.0); HGB 11.2 g/dL (12.0-15.5); Immature Grans % 0.7; Lymphocytes % 25.2; Mean Corp. HGB Concentration 33.7 g/dL (32.0-36.0); Mean Corpuscular Hemoglobin 33.2 pg (27.0-33.0); Mean Corpuscular Volume 98.5 fL (80-95); Mean Platelet Volume 9.5 fL (8.0-11.0); Monocytes % 6.8; Neutrophils % 65.1; Platelet Count 271 x1000/uL (130-400); RBC 3.37 m/cumm (4.00-5.20); RBC Distribution Width 13.3 % (11.7-14.6); White Blood Cell Count 8.88 k/cumm (4.4-10.8)
[2019-06-30 07:48] LABS: Anion Gap 5.4 mmol/L (3-11); BUN 5 mg/dL (7-18); CO2 27.6 mmol/L (21.0-32.0); CREATININE 0.57 mg/dL (0.55-1.02); Calcium 8.6 mg/dL (8.5-10.1); Chloride 108 mmol/L (98-107); Glucose 203 mg/dL (70-100); Magnesium 1.8 mg/dL (1.8-2.4); Potassium 4.2 mmol/L (3.5-5.1); Sodium 141 mmol/L (136-145)
[2019-06-30] MEDS: Potassium Chloride 20 MEQ TABCR 40 MEQ PO ×2 (08:05→20:00)
[2019-06-30] MEDS: lamoTRIgine 25 MG TAB 100 MG PO (08:06)
[2019-06-30] MEDS: guaiFENesin 600 MG TABCR PO ×2 (08:06→20:00)
[2019-06-30] MEDS: Insulin Aspart 300 UNITS/3 ML PEN SC ×4 (08:07→21:17)
[2019-06-30] MEDS: Escitalopram 20 MG TAB 40 MG PO (08:07)
[2019-06-30] MEDS: Omeprazole 20 MG CAPCR 40 MG PO (08:07)
[2019-06-30] MEDS: Ipratropium/Albuterol 4 GM 120 PUFF INH IH ×4 (08:16→19:59)
[2019-06-30] MEDS: Budesonide/Formoterol 160/4.5 6 GM 60 PUFF INH IH ×2 (08:17→20:00)
--- NOTE | 2019-06-30 11:19 | DI.RAD_ITS ---
EXAM: XR PORTABLE CHEST AP INDICATION: follow up pneumonia. COMPARISON: XR CHEST 2V PA LATERAL from 11/15/2018 TECHNIQUE: 2D digital imaging was performed. FINDINGS: The lungs are free of infiltrate. There is no evidence of a pleural effusion. The heart is within n ormal limits in size. IMPRESSION: No evidence of acute cardiopulmonary disease.
[2019-06-30] MEDS: methylPREDNISolone SUCC 125 MG VIAL IVP (11:44)
[2019-06-30] MEDS: Albuterol/Ipratropium 3 ML UPD VIAL UPD ×2 (13:56→21:19)
--- NOTE | 2019-06-30 15:03 | PDOC.CMPRO ---
- If Service Date Differs Date of service: 06/30/19 Time of Service: 15:03 Care Management Progress Note S/O: Sunni was lying in bed receiving a breathing treatment when CM met with her today. She stated that she is feeling better and wants to go home. CM discussed with her the benefits of receiving treatment in order to be stable prior to discharge. She reported that she is bored, and CM offered her items from the cart to keep her busy while she is at [facility], which she declined. She said that she reads 10 books a week, and that she has a book on her michael to read. CM will continue to follow and support patient with discharge planning. A: Sunni is a 49 year old female admitted to [facility] on 06/28/2019 for pneumonia. P: Anticipate Sunni will return home with no additional services when medically cleared. Follow up with PCP. Anticipate Sunni will return home via [facility] bus when ready. CM will continue to follow.
[2019-06-30] MEDS: oxyCODONE 10 MG TAB PO ×2 (17:20→21:27)
--- NOTE | 2019-06-30 19:38 | W.PM.PROGNOT ---
Date of Service Date of service: 06/30/19 Time of Service: 16:40 Assessment and Plan Assessment and plan (1) CAP (community acquired pneumonia): Status: Acute Assessment and plan: Continue doxycycline/rocephin. Initial sputum gram stain showed GPC's - vancomycin added, but as culture is now growing normal thomas, I think it is ok to d/c it. Continue antitussives/NSAIDS/pain control. (2) COPD (chronic obstructive pulmonary disease): Status: Chronic Assessment and plan: Provide prn nebs. IV steroids started. Continue symbicort. (3) Pleuritic chest pain: Status: Acute Assessment and plan: schedule NSAIDs, prn oxycodone for pain relief. Lidacaine patches. Antitussives. IS. (4) Crohns disease: Status: None Assessment and plan: stable - follow up as outpatient Qualifiers: Gastrointestinal tract location: large intestine Digestive disease complication type: without complication Qualified Code(s): K50.10 - Crohn's disease of large intestine without complications (5) Discharge planning issues: Status: Acute Assessment and plan: Full code Possible discharge home within the next 24-48 hours (6) DVT prophylaxis: Status: Acute Assessment and plan: Heparin SC/TEDS/SCDs Subjective Subjective Interval history since last seen: Ms Salomon states she feels a little better today. Breathing is better and Her back/chest pain is better controlled, but she thinks that the tylenol component of percocet is irritating her intestin. Started to bring up green sputum, which she collected in a specimen cup. Denies dizziness, chest pain, nausea, vomiting. Exam Narrative Exam Narrative: General: middle-aged female, still looks sick, but much better than yesterday HEENT: EOMI, MMM Heart: RRR, no m/r/g, tachycardic Lungs: coarse breath sounds B, but improved GI: abdomen is soft, nontender, nondistended Extremities: no e/c/c BLE's Objective Objective Clinical Data: Abnormal lab results 06/30/19 06/30/19 Range/Units 06:58 06:58 RBC 3.37 L (4.00-5.20) m/cumm Hgb 11.2 L (12.0-15.5) g/dL Hct 33.2 L (36.0-46.0) % MCV 98.5 H (80-95) fL MCH 33.2 H (27.0-33.0) pg Chloride 108 H (98-107) mmol/L BUN 5 L (7-18) mg/dL Glucose 203 H (70-100) mg/dL Vital Signs Temperature 35.6 C L 06/30/19 08:39 Temperature Source Tympanic 06/30/19 08:39 Pulse 70 06/30/19 15:04 Pulse Rhythm Regular 06/30/19 08:14 Pulse 89 06/28/19 23:37 Respiratory Rate 18 06/30/19 14:05 Respiratory Effort 06/30/19 08:14 Respiratory Depth Normal 06/30/19 08:14 Respiratory Pattern Normal 06/30/19 08:14 Blood Pressure 122/72 06/30/19 08:39 Blood Pressure Position Sitting 06/28/19 18:36 Pulse Oximetry 99 06/30/19 14:05 Oxygen Delivery Method Room Air 06/30/19 13:56 Oxygen Flow Rate 0 06/30/19 13:56 Pain Level 5 06/30/19 18:20 Comment 06/29/19 23:37 Intake & Output 06/29/19 06/30/19 06/30/19 23:59 11:59 23:59 Intake Total 1400 / 3550 2774.167 / 3554.167 780 / 3554.167 Balance 1400 / 3550 2774.167 / 3554.167 780 / 3554.167 Intake: IV 1400 / 2660 2054.167 / 2354.167 300 / 2354.167 Oral 720 / 1200 480 / 1200 Other: Urine Appearance Clear Clear Voiding Methods Toilet Laboratory Results WBC 8.88 k/cumm (4.4-10.8) D 06/30/19 06:58 RBC 3.37 m/cumm (4.00-5.20) L 06/30/19 06:58 Hgb 11.2 g/dL (12.0-15.5) L 06/30/19 06:58 Hct 33.2 % (36.0-46.0) L 06/30/19 06:58 MCV 98.5 fL (80-95) H 06/30/19 06:58 MCH 33.2 pg (27.0-33.0) H 06/30/19 06:58 MCHC 33.7 g/dL (32.0-36.0) 06/30/19 06:58 RDW 13.3 % (11.7-14.6) 06/30/19 06:58 Plt Count 271 x1000/uL (130-400) 06/30/19 06:58 MPV 9.5 fL (8.0-11.0) 06/30/19 06:58 Immature Gran % 0.7 06/30/19 06:58 Neutrophils % 65.1 06/30/19 06:58 Lymphocytes % 25.2 06/30/19 06:58 Monocytes % 6.8 06/30/19 06:58 Eosinophils % 1.9 06/30/19 06:58 Basophils % 0.3 06/30/19 06:58 Absolute Neutrophils 5.78 k/cumm (1.2-6.7) 06/30/19 06:58 Absolute Lymphocytes 2.24 k/cumm (1.2-3.4) 06/30/19 06:58 Absolute Monocytes 0.60 k/cumm (0.11-0.7) 06/30/19 06:58 Absolute Eosinophils 0.17 k/cumm (0.0-0.7) 06/30/19 06:58 Absolute Basophils 0.03 k/cumm (0.0-0.2) 06/30/19 06:58 Differential Comment Diff reviewed 06/28/19 20:40 RBC Morphology Normal 06/28/19 20:40 Sodium 141 mmol/L (136-145) 06/30/19 06:58 Potassium 4.2 mmol/L (3.5-5.1) D 06/30/19 06:58 Chloride 108 mmol/L (98-107) H 06/30/19 06:58 Carbon Dioxide 27.6 mmol/L (21.0-32.0) 06/30/19 06:58 Anion Gap 5.4 mmol/L (3-11) 06/30/19 06:58 BUN 5 mg/dL (7-18) L 06/30/19 06:58 Creatinine 0.57 mg/dL (0.55-1.02) 06/30/19 06:58 Estimated GFR/1.73 m2 >= 60.00 (mL/min/1.73m2) 06/30/19 06:58 Glucose 203 mg/dL (70-100) H 06/30/19 06:58 Hemoglobin A1c 8.6 % (4.5-6.2) H 06/29/19 06:30 Calcium 8.6 mg/dL (8.5-10.1) 06/30/19 06:58 Magnesium 1.8 mg/dL (1.8-2.4) 06/30/19 06:58 Total Bilirubin 1.0 mg/dL (0.2-1.0) 06/28/19 20:40 AST 46 U/L (15-37) H 06/28/19 20:40 ALT 56 U/L (14-59) 06/28/19 20:40 Alkaline Phosphatase 158 U/L (46-116) H 06/28/19 20:40 Troponin I < 0.05 ng/mL (0.00-0.06) 06/28/19 20:40 Total Protein 8.2 g/dL (6.4-8.2) 06/28/19 20:40 Albumin 3.0 g/dL (3.4-5.0) L 06/28/19 20:40 Lipase 188 U/L (73-393) 06/28/19 20:40 Urine Color Yellow (Yellow) 06/28/19 20:45 Urine Clarity Clear (Clear) 06/28/19 20:45 Urine pH 6.5 (5-8) 06/28/19 20:45 Ur Specific [place] <= 1.005 (1.005-1.025) 06/28/19 20:45 Urine Protein 30 mg/dL (Negative) H 06/28/19 20:45 Urine Ketones >=160 mg/dL (Negative) H 06/28/19 20:45 Urine Blood Large (Negative) H 06/28/19 20:45 Urine Nitrite Negative (Negative) 06/28/19 20:45 Urine Bilirubin Negative (Negative) 06/28/19 20:45 Urine Urobilinogen 2.0 EU/dL (Up TO 0.2) H 06/28/19 20:45 Ur Leukocyte Esterase Negative (Negative) 06/28/19 20:45 Urine RBC >50 (0-2) H 06/28/19 20:45 Urine WBC 5-10 HPF (0-5) 06/28/19 20:45 Ur Epithelial Cells Few HPF (Negative) 06/28/19 20:45 Urine Crystals Negative HPF (Negative) 06/28/19 20:45 Urine Bacteria Few HPF (Negative) 06/28/19 20:45 Urine Casts Negative LPF (Negative) 06/28/19 20:45 Urine Mucus Negative (Negative) 06/28/19 20:45 Urine Other Negative (Negative) 06/28/19 20:45 Ur Culture Indicated? Yes 06/28/19 20:45 Urine Glucose 500 mg/dL (Negative) H 06/28/19 20:45 Legionella Source Cancelled 06/29/19 19:30 Legionella DNA (PCR) Cancelled 06/29/19 19:30
[2019-06-30] MEDS: methylPREDNISolone SUCC 125 MG VIAL 60 MG IVP (19:58)
[2019-06-30] MEDS: Normal Saline Flush 10 ML SYR IVP (19:59)
[2019-06-30] MEDS: Zolpidem 5 MG TAB PO (21:27)
[2019-06-30] MEDS: cefTRIAXone 1 GM/50 ML BAG IV (23:41)
[2019-07-01] MEDS: DOXYCYCLINE 100 MG in Normal Saline 100 ML IVPB ×2 (01:55→14:08)
[2019-07-01] MEDS: Ketorolac 30 MG/ML VIAL IVP ×3 (02:58→14:07)
[2019-07-01] MEDS: methylPREDNISolone SUCC 125 MG VIAL 60 MG IVP (02:59)
[2019-07-01] MEDS: Normal Saline Flush 10 ML SYR IVP ×2 (03:30→15:43)
[2019-07-01] MEDS: Heparin 5,000 UNITS/ML VIAL 5000 UNITS SC ×2 (05:48→14:18)
[2019-07-01 06:46] LABS: Abs Immature Grans 0.19 k/cumm (0.0-0.09); HCT 35.2 % (36.0-46.0); HGB 12.1 g/dL (12.0-15.5); Mean Corp. HGB Concentration 34.4 g/dL (32.0-36.0); Mean Corpuscular Volume 95.9 fL (80-95); Mean Platelet Volume 9.4 fL (8.0-11.0); Platelet Count 356 x1000/uL (130-400); RBC 3.67 m/cumm (4.00-5.20); RBC Distribution Width 13.1 % (11.7-14.6); White Blood Cell Count 15.41 k/cumm (4.4-10.8)
[2019-07-01 06:57] LABS: Anion Gap 9.4 mmol/L (3-11); BUN 12 mg/dL (7-18); CO2 24.6 mmol/L (21.0-32.0); CREATININE 0.63 mg/dL (0.55-1.02); Calcium 9.6 mg/dL (8.5-10.1); Chloride 101 mmol/L (98-107); Glucose 341 mg/dL (70-100); Magnesium 1.9 mg/dL (1.8-2.4); Potassium 4.8 mmol/L (3.5-5.1); Sodium 135 mmol/L (136-145)
[2019-07-01 07:23] LABS: Absolute Neutrophil Count 14.33 k/cumm (1.2-6.7)
[2019-07-01 07:24] LABS: Absolute Lymphocyte Count 0.92 k/cumm (1.2-3.4); Absolute Monocyte Count 0.15 k/cumm (0.11-0.7); Atypical Lymphocytes % 1; Diff Comment Manual Differential; RBC Morphology Normal
[2019-07-01 07:30] VITALS: BP 154/87; PULSE 77; RESP 18; TEMP 36.2; O2SAT 95
[2019-07-01] MEDS: Insulin Aspart 300 UNITS/3 ML PEN SC ×3 (08:17→17:11)
[2019-07-01] MEDS: Omeprazole 20 MG CAPCR 40 MG PO (08:18)
[2019-07-01] MEDS: Escitalopram 20 MG TAB 40 MG PO (08:18)
[2019-07-01] MEDS: Potassium Chloride 20 MEQ TABCR 40 MEQ PO (08:18)
[2019-07-01] MEDS: lamoTRIgine 25 MG TAB 100 MG PO (08:18)
[2019-07-01] MEDS: guaiFENesin 600 MG TABCR PO (08:19)
[2019-07-01] MEDS: Pantoprazole 40 MG TABCR PO (08:19)
[2019-07-01] MEDS: Budesonide/Formoterol 160/4.5 6 GM 60 PUFF INH IH (09:18)
[2019-07-01] MEDS: Ipratropium/Albuterol 4 GM 120 PUFF INH IH ×3 (09:18→15:35)
--- NOTE | 2019-07-01 10:43 | DI.RAD_ITS ---
EXAM: XR RIBS ONLY LT INDICATION: question of L-sided rib fracture. COMPARISON: XR PORTABLE CHEST AP from 06/30/2019 TECHNIQUE: 2D digital imaging was performed. FINDINGS: Four views of the left ribs were obtained. No fracture is identified. IMPRESSION:
[2019-07-01] MEDS: oxyCODONE 10 MG TAB PO ×2 (11:40→15:39)
--- NOTE | 2019-07-01 14:47 | PHARADMIT ---
Admission Pharmacy Clinical Review PNEUMONIA Code Status Full Code Current Weight Wgt-71.9 kg Renally Cleared and Narrow Therapeutic Index Meds CrCl~ 75 mL/min Meds-OK QTc Value / Action Taken QTc-455 (Omeprazole,Phenergan, Lexapro) BP Control, Fever BP-154/87 Tmax- 37C Electrolytes reviewed Na- 135 K+4.8 Mag-1.69 DVT Prophylaxis Heparin SC Opiate Usage / Scheduled Bowel Regimen Ordered Yes Yes Plt/SCr for Heparin / Enoxaparin Plts-356 SCr-0.63 INR for Warfarin NA H/H stable, WBC/Bands H&H- 12.1/35.2 WBC- 15.41 Antibiotic appropriateness Rocephin, Doxycycline IV Cultures and Sensitivities Blood-NoGrowth/48HR, Sputum-CandidaM Urine-Mixed Surgical ABX d/c within 24 hr DM control / Insulin Dosing BG-341 NgM6b-5.6% on Aspart & Glargine Heart Failure (Check EF%) (ALEE's, B-Block, Diuretics) none IV to PO Switch No Home Meds Reviewed Yes Home Meds Not Ordered Combivent to [facility]
--- NOTE | 2019-07-01 14:54 | CHAPLAIN ---
Sunni was resting in bed when I visited. She said she is feeling well, but is bored and would prefer to be home. She talked about being patient and how that is difficult for her. She remembered that we's met during a previous admission. She was pleasant and talkative, but was focused on not wanting to be here.
--- NOTE | 2019-07-01 15:25 | PDOC.CMPRO ---
- If Service Date Differs Date of service: 07/01/19 Time of Service: 15:25 Care Management Progress Note S/O: Sunni was sitting up in bed when CM met with her today. She stated that she was feeling better and that she wants to go outside to smoke a cigarette. She reports that she has been trying to quit on her own and has cut down to 2-3 cigarettes a day. CM asked if she would like more support for smoking cessation, which she declined. CM discussed the importance of Sunni staying in the hospital in order to receive the IV antibiotics that the provider had ordered. CM will continue to follow. A: Sunni is a 49 year old female admitted to [facility] on 06/28/2019 for pneumonia. P: Anticipate Sunni will return home with no additional services when medically cleared. Follow up with PCP. Anticipate Sunni will return home via [facility] bus or by private vehicle driven by a friend when ready. CM will continue to follow.
[2019-07-01 16:11] VITALS: BP 126/76; PULSE 79; RESP 18; TEMP 36.7; O2SAT 96
--- NOTE | 2019-07-01 16:49 | W.PM.DS.N ---
Date of service: 07/01/19 Time of Service: 16:49 DS: Diagnosis Discharge Diagnosis (1) CAP (community acquired pneumonia): Status: Acute (2) COPD (chronic obstructive pulmonary disease): Status: Chronic (3) Pleuritic chest pain: Status: Acute (4) Crohns disease: Status: None (5) Rectal pain, chronic: Status: Acute (6) Newly diagnosed diabetes: Status: Acute Asessment and Plan: A1c 8.6 (7) Steroid-induced hyperglycemia: Status: Acute Discharge Plan Disposition Patient Disposition: HOME Condition: Improving Discharge Details Chief Complaint: Chest/Rib Clinical Impression: Left lower lobe pneumonia, Nausea, vomiting and diarrhea, Hypokalemia, Hyperglycemia Reason For Visit: PNEUMONIA Admit Date/Time: 06/28/19 23:33 Admit Provider: Momo Lockett Attending Provider: Momo Lockett Primary Care Provider: Jewel Parham ED [facility] Hospital Course: Ms Salomon is a 49 year old female with PMHx of non-oxygen dependent COPD, Cronhn's disease, tobacco abuse, who was admitted to [facility] on 06/28/19 with CAP and acute exacerbation of COPD with severe pleuritic chest pain. She received 3 days of doxycycline and ceftriaxone, steroids, nebs, NSAIDs as well as opioid pain medications with significant clinical improvement. She is medically stable to be discharged home today with 4 more days of antibiotics, a steroid taper, and nebs. Additionally, on this admission, she was diagnosed with diabetes and does have some steroid induced hyperglycemia. She is being initiated on metformin on discharge. She will need outpatient follow up for this with her PCP. The care for patient and completion of her discharge paperwork on the day of discharge took 35 minutes. Home Meds and New Rx's Prescriptions: New ipratropium-albuterol 0.5 mg-3 mg(2.5 mg base)/3 mL Solution For Nebulization 3 ml UPD Q6H PRN PRN (Reason: shortness of breath/wheezing) Qty: 180 RF: 0 lidocaine [Lidoderm] 5 % Adhesive Patch,Medicated 1 patch topical DAILY@2000 Qty: 10 RF: 0 oxycodone 10 mg Tablet 10 mg PO Q4H PRN MDD 60 mg or 6 tabs PRN (Reason: pain) Qty: 18 RF: 0 guaifenesin [Mucinex] 600 mg Tablet Extended Release 12hr 600 mg PO BID Qty: 30 RF: 0 prednisone 20 mg Tablet See Rx Instructions .ROUTE .COMPLEX Qty: 6 RF: 0 potassium chloride [Klor-Con M20] 20 mEq Tablet,Er Particles/Crystals 40 meq PO DAILY Qty: 3 RF: 0 metformin 500 mg tablet 500 mg PO BID Qty: 60 RF: 0 doxycycline hyclate 100 mg capsule 100 mg PO BID Qty: 8 RF: 0 cefuroxime axetil 500 mg tablet 500 mg PO BID Qty: 8 RF: 0 Continued lamotrigine [Lamictal] 25 MG tablet 100 mg PO DAILY RF: 0 escitalopram oxalate [Lexapro] 20 MG tablet 40 mg PO DAILY RF: 0 Combivent 200 PUFF aerosol 1 puff Inhalation QID RF: 0 albuterol sulfate [ProAir HFA] 8.5 GM HFA aerosol inhaler 200 puff Inhalation Q4H PRN PRN (Reason: wheeze) Qty: 1 RF: 0 Symbicort 160-4.5 mcg/actuation HFA aerosol inhaler 2 puff IH Q12H Qty: 10.2 RF: 0 dextroamphetamine-amphetamine [Adderall] 15 mg Tablet 40 mg PO DAILY RF: 0 albuterol sulfate [Ventolin HFA] 90 mcg/actuation Hfa Aerosol Inhaler 1 puff INHALATION Q4H PRN PRNRF: 0 omeprazole 40 mg capsule,delayed release(DR/EC) 40 mg PO DAILY Qty: 30 RF: 0 Discontinued oxycodone-acetaminophen [Percocet] 5-325 mg tablet 1 tab PO Q4H PRN (Reason: pain) Qty: 14 RF: 0 Discharge Instructions Instructions: Cefuroxime (By mouth), Doxycycline (By mouth), Prednisone (By mouth), Metformin (By mouth), Diabetes Mellitus Type 2 in Adults (DC) Additional Instructions: Finish your antibiotics and steroids as prescribed. Return to the hospital with any fever, bleeding, chest pain, or shortness of breath. Buy a glucometer and strips (over the counter at [facility]) and check your blood sugar first thing in the morning before eating or drinking. Bring this log to your PCP. Referrals: Jewel Parham [Primary Care Provider] - Activity:: Activity as Tolerated Equipment/Supplies:: No Equipment Needed Diet:: Carb Counting Discharge Orders Discharge Orders: Discharge Order (Routine); Ordered 07/01/19 Ordered By: Loretta Segura DS: Summary Status at Discharge Functional status at discharge: independent ambulation Overall status at discharge: patient is progressing back to baseline Mental Status: mental status grossly normal Speech and Movement: speech and movement normal Mood: congruent mood Affect: normal affect Exam Narrative Exam Narrative: General: middle-aged female, still looks sick, but much better than yesterday HEENT: EOMI, MMM Heart: RRR, no m/r/g, tachycardic Lungs: coarse breath sounds B, but improved GI: abdomen is soft, nontender, nondistended Extremities: no e/c/c BLE's Psych Mental Status: mental status grossly normal Speech and Movement: speech and movement normal Mood: congruent mood Affect: normal affect DS: Data Vitals/I&O Vitals and I&O: Vital Signs Temperature 36.7 C 07/01/19 16:11 Temperature Source Tympanic 07/01/19 16:11 Pulse 79 07/01/19 16:11 Pulse Rhythm Regular 07/01/19 15:35 Pulse 89 06/28/19 23:37 Respiratory Rate 18 07/01/19 16:11 Respiratory Effort Non-Labored 07/01/19 15:35 Respiratory Depth Normal 07/01/19 15:35 Respiratory Pattern Normal 07/01/19 15:35 Blood Pressure 126/76 07/01/19 16:11 Blood Pressure Position Sitting 06/28/19 18:36 Pulse Oximetry 96 07/01/19 16:11 Oxygen Delivery Method Room Air 07/01/19 16:11 Oxygen Flow Rate 0 07/01/19 16:11 Pain Level 9 07/01/19 16:11 Comment 07/01/19 07:30 Intake & Output 06/30/19 07/01/19 07/01/19 23:59 11:59 23:59 Intake Total 1290 / 4064.167 1030 / 1370 340 / 1370 Balance 1290 / 4064.167 1030 / 1370 340 / 1370 Intake: IV 330 / 2384.167 190 / 290 100 / 290 Oral 960 / 1680 840 / 1080 240 / 1080 Other: Comment Patient voiding independantly Data Completed and Pending Completed studies during hospitalization [Text1]: CT chest/abdomen/pelvis 06/28/19: Findings consistent with a left lower lobe pneumonitis. There is small airway disease. Slightly enlarged mediastinal lymph nodes are likely reactive but could be further evaluated with a follow-up CT in 3 months. No acute findings in the abdomen or pelvis. CXR 06/30/19: No evidence of acute cardiopulmonary disease. XR ribs 07/01/19: Four views of the left ribs were obtained. No fracture is identified. Labs on day of discharge: Labs from last 24 hours 07/01/19 07/01/19 07/01/19 13:00 06:05 06:05 WBC 15.41 H D RBC 3.67 L Hgb 12.1 Hct 35.2 L MCV 95.9 H MCH 33.0 MCHC 34.4 RDW 13.1 Plt Count 356 MPV 9.4 Immature Gran % 0.0 Neutrophils % 90.0 Band Neutrophils % 3.0 Lymphocytes % 5.0 Atypical Lymphs % 1 Monocytes % 1.0 Eosinophils % 0.0 Basophils % 0.0 Absolute Neutrophils 14.33 H Absolute Lymphocytes 0.92 L Absolute Monocytes 0.15 Absolute Eosinophils 0.00 Absolute Basophils 0.00 Differential Comment Manual differential RBC Morphology Normal Sodium 135 L Potassium 4.8 Chloride 101 Carbon Dioxide 24.6 Anion Gap 9.4 BUN 12 D Creatinine 0.63 Estimated GFR/1.73 m2 >= 60.00 Glucose 341 H D Calcium 9.6 Magnesium 1.9 Vancomycin Trough Cancelled Legionella Source Legionella DNA (PCR) 06/30/19 20:15 WBC RBC Hgb Hct MCV MCH MCHC RDW Plt Count MPV Immature Gran % Neutrophils % Band Neutrophils % Lymphocytes % Atypical Lymphs % Monocytes % Eosinophils % Basophils % Absolute Neutrophils Absolute Lymphocytes Absolute Monocytes Absolute Eosinophils Absolute Basophils Differential Comment RBC Morphology Sodium Potassium Chloride Carbon Dioxide Anion Gap BUN Creatinine Estimated GFR/1.73 m2 Glucose Calcium Magnesium Vancomycin Trough Legionella Source Pending Legionella DNA (PCR) Pending Preliminary micro results at discharge 06/30/19 20:15 Sputum Culture - Preliminary Sputum Normal Nelia Keshia Albicans 06/29/19 19:30 Sputum Culture - Preliminary Sputum Normal Nelia 06/28/19 22:55 Blood Culture - Preliminary Blood NO GROWTH 48 HOURS 06/28/19 23:05 Blood Culture - Preliminary Blood NO GROWTH 48 HOURS [facility] Medical History Abscess of sigmoid colon Bipolar affective disorder Bleeding external hemorrhoids Borderline personality disorder COPD (chronic obstructive pulmonary disease) Crohns disease DDD (degenerative disc disease), lumbosacral Depression with anxiety Disassociation disorder Major depressive disorder PTSD (post-traumatic stress disorder) Surgical History Exam under Anesthesia (09/15/17) anal exam, anal fissure Social History Smoking/Tobacco Use Status: Current every day Tobacco Type: cigarettes Alcohol Intake: never Drug use: Never Substance use type: does not use Do you feel safe at home: Yes Do you feel safe in your relationship?: Yes
[2019-07-02 01:08] LABS: Mycoplasma Pneumoniae PCR Negative; Specimen source SPUTUM
[2019-07-03 19:40] LABS: Result Negative; Specimen Source SPUTUM
[2019-07-04 15:58] LABS: Streptococcus Pneumoniae Ag, U Negative (Negative)
== END 2019-07-01 17:43 | disposition home or self-care (01) | DRG 194 ==
LOC: ER 23:46 → MS 06-29 00:37
PROVIDERS: Admitting Provider General Practice; Emergency Provider Emergency Medicine; PCP Family Medicine; Visit Provider Internal Medicine
DX: J18.1 Lobar pneumonia, unspecified organism (principal); J44.0 Chronic obstructive pulmonary disease with (acute) lower respiratory infection; K50.90 Crohn's disease, unspecified, without complications; J44.1 Chronic obstructive pulmonary disease with (acute) exacerbation; F31.89 Other bipolar disorder; R07.81 Pleurodynia; K62.89 Other specified diseases of anus and rectum; E11.65 Type 2 diabetes mellitus with hyperglycemia; T38.0X5A Adverse effect of glucocorticoids and synthetic analogues, initial encounter; F17.210 Nicotine dependence, cigarettes, uncomplicated; F60.3 Borderline personality disorder; F41.8 Other specified anxiety disorders
CPT/HCPCS: 36415; 71275; 74177; 80048; 80053; 81025; 83690; 85027; 87040; 87801; 93005; 94640; 96361; 96365; 96375; 99222; 99232; 99239; 99285; 71045; 71100; 80202; 81003; 81015; 83036; 83735; 84484; 85025; 87070; 87086; 87205; 87450; 87581; 93010; 99221; J0696; J1644; J1885; J2930; J3480; J3490; J7620

== ENCOUNTER 2019-09-07 10:35 | Emergency (ER) | payer MEDICARE, MEDICAID, SELFPAY ==
[2019-09-07 10:39] VITALS: BP 133/86; PULSE 91; RESP 16; TEMP 36.7; O2SAT 98
--- NOTE | 2019-09-07 10:43 | W.ED.GENAD ---
Discharge Plan Disposition Patient Disposition: HOME Condition: Stable Discharge Details Chief Complaint: DentalOral Clinical Impression: Dental infection Primary Care Provider: Jewel Parham ED Provider: Ian Shea Home Meds and New Rx's Prescriptions: New amoxicillin 500 mg capsule 500 mg PO BID Qty: 14 RF: 0 Continued lamotrigine [Lamictal] 25 MG tablet 100 mg PO DAILY RF: 0 escitalopram oxalate [Lexapro] 20 MG tablet 40 mg PO DAILY RF: 0 Combivent 200 PUFF aerosol 1 puff Inhalation QID RF: 0 ipratropium-albuterol 0.5 mg-3 mg(2.5 mg base)/3 mL Solution For Nebulization 3 ml UPD Q6H PRN PRN (Reason: shortness of breath/wheezing) Qty: 180 RF: 0 lidocaine [Lidoderm] 5 % Adhesive Patch,Medicated 1 patch topical DAILY@2000 Qty: 10 RF: 0 oxycodone 10 mg Tablet 10 mg PO Q4H PRN MDD 60 mg or 6 tabs PRN (Reason: pain) Qty: 18 RF: 0 guaifenesin [Mucinex] 600 mg Tablet Extended Release 12hr 600 mg PO BID Qty: 30 RF: 0 prednisone 20 mg Tablet See Rx Instructions .ROUTE .COMPLEX Qty: 6 RF: 0 potassium chloride [Klor-Con M20] 20 mEq Tablet,Er Particles/Crystals 40 meq PO DAILY Qty: 3 RF: 0 metformin 500 mg tablet 500 mg PO BID Qty: 60 RF: 0 doxycycline hyclate 100 mg capsule 100 mg PO BID Qty: 8 RF: 0 cefuroxime axetil 500 mg tablet 500 mg PO BID Qty: 8 RF: 0 albuterol sulfate [ProAir HFA] 8.5 GM HFA aerosol inhaler 200 puff Inhalation Q4H PRN PRN (Reason: wheeze) Qty: 1 RF: 0 Symbicort 160-4.5 mcg/actuation HFA aerosol inhaler 2 puff IH Q12H Qty: 10.2 RF: 0 dextroamphetamine-amphetamine [Adderall] 15 mg Tablet 40 mg PO DAILY RF: 0 albuterol sulfate [Ventolin HFA] 90 mcg/actuation Hfa Aerosol Inhaler 1 puff INHALATION Q4H PRN PRNRF: 0 omeprazole 40 mg capsule,delayed release(DR/EC) 40 mg PO DAILY Qty: 30 RF: 0 Discharge Instructions Additional Instructions: follow up with your dentist next week if you feel more ill, have difficulty breathing or swallowing return to the emergency department for evaluation Medical Decision Making 49 yo female comes in with several days of left lower mid molar pain and had a filling fall out recently. Denies fevers, dyspnea, and no difficulty swallowing. Has numerous dental caries, no dental abscess on the bedside exam, normal oropharynx, no submandibular swelling. Will start on abx and she has f/u Thursday with dentist, return precautions given Differential Diagnosis Differential Diagnosis: pupitis, abscess HPI General Mode of arrival: ambulatory. Date/Time Provider Initiated Documentation: 09/07/19 10:37. Limitations to Documentation: no limitations. Information obtained by: patient. History of Present Illness 49 year old F presents to the emergency department with the chief complaint of dental pain, described as moderate, and it has been constant. No relieving factors improve symptom(s), No exacerbating factors reported . Related Data Home Medications Medication Instructions Recorded Confirmed escitalopram oxalate [Lexapro] 40 mg PO DAILY 05/11/17 06/28/19 lamotrigine [Lamictal] 100 mg PO DAILY 05/11/17 06/28/19 Combivent 1 puff INHALATION QID 05/29/17 06/28/19 albuterol sulfate [ProAir HFA] 200 puff INHALATION Q4H PRN PRN #1 03/07/18 06/28/19 [email or web address] Symbicort 2 puff IH Q12H #10.2 gm 11/16/18 06/28/19 dextroamphetamine-amphetamine 40 mg PO DAILY 05/24/19 06/28/19 [Adderall] albuterol sulfate [Ventolin HFA] 1 puff INHALATION Q4H PRN PRN 05/25/19 06/28/19 omeprazole 40 mg PO DAILY #30 cap 05/26/19 06/28/19 guaifenesin [Mucinex] 600 mg PO BID #30 tab 07/01/19 ipratropium-albuterol 3 ml UPD Q6H PRN PRN #180 ml 07/01/19 lidocaine [Lidoderm] 1 patch TOPICAL DAILY@1999 #10 ea 07/01/19 metformin 500 mg PO BID #60 tab 07/01/19 oxycodone 10 mg PO Q4H PRN PRN #18 tab MDD 07/01/19 60 mg or 6 tabs potassium chloride [Klor-Con M20] 40 meq PO DAILY #3 tab 07/01/19 amoxicillin 500 mg PO BID #14 cap 09/07/19 Previous Rx's Medication Instructions Recorded albuterol sulfate [ProAir HFA] 200 puff INHALATION Q4H PRN PRN #1 03/07/18 [email or web address] Symbicort 2 puff IH Q12H #10.2 gm 11/16/18 omeprazole 40 mg PO DAILY #30 cap 05/26/19 guaifenesin [Mucinex] 600 mg PO BID #30 tab 07/01/19 ipratropium-albuterol 3 ml UPD Q6H PRN PRN #180 ml 07/01/19 lidocaine [Lidoderm] 1 patch TOPICAL DAILY@1999 #10 ea 07/01/19 metformin 500 mg PO BID #60 tab 07/01/19 oxycodone 10 mg PO Q4H PRN PRN #18 tab MDD 07/01/19 60 mg or 6 tabs potassium chloride [Klor-Con M20] 40 meq PO DAILY #3 tab 07/01/19 amoxicillin 500 mg PO BID #14 cap 09/07/19 Allergies Allergy/AdvReac Type Severity Reaction Status Date / Time azithromycin [From Zithromax] Allergy Severe hives Unverified 09/07/19 10:42 aripiprazole Allergy Intermediate Nausea Unverified 09/07/19 10:42 chocolate flavor Allergy Unknown Unverified 09/07/19 10:42 coconut Allergy Unknown Unverified 09/07/19 10:42 erythromycin base Allergy Unknown Unverified 09/07/19 10:42 mushroom Allergy Unknown Unverified 09/07/19 10:42 pollen extracts Allergy Unknown Unverified 09/07/19 10:42 nicotine AdvReac Other (See Unverified 09/07/19 10:42 Comment) DUST Allergy Unknown Uncoded 09/07/19 10:42 General Stated Complaint: DentalOral NIC: 4 Review of Systems All systems reviewed & are unremarkable except as noted in HPI and below Constitutional Constitutional: Denies chills, Denies fever(s) and Denies weakness Cardiovascular Cardiovascular: Denies chest pain and Denies dyspnea Respiratory Respiratory: Denies cough and Denies dyspnea Gastrointestinal Gastrointestinal: Denies abdominal pain, Denies nausea and Denies vomiting Musculoskeletal Musculoskeletal: Denies joint swelling Neurologic Neurologic: Denies weakness Endocrine Endocrine: Denies heat intolerance [facility] Medical History (Updated 07/01/19 @ 16:52 by Loretta Segura MD) Abscess of sigmoid colon Bipolar affective disorder Bleeding external hemorrhoids Borderline personality disorder COPD (chronic obstructive pulmonary disease) Crohns disease DDD (degenerative disc disease), lumbosacral Depression with anxiety Disassociation disorder Major depressive disorder PTSD (post-traumatic stress disorder) Tobacco abuse (Acute) Surgical History Exam under Anesthesia (09/15/17) anal exam, anal fissure Social History Smoking/Tobacco Use Status: Current every day Tobacco Type: cigarettes Alcohol Intake: never Drug use: Never Substance use type: does not use Do you feel safe at home: Yes Do you feel safe in your relationship?: Yes Exam Const General: no acute distress Orientation: alert HENMT Head: normal to inspection Ears: external ears normal General nose exam: external nose normal Mouth: moist mucous membranes Eyes General: appearance normal, both eyes and all related structures Neck Neck: normal visual inspection Resp Effort & Inspection: normal respiratory effort and able to speak in complete sentences Cardio Rate: regular rate Skin General skin exam: no rashes or lesions noted Neuro General: alert and oriented x3 Extrem General: normal to inspection Psych Mental Status: mental status grossly normal Course Vital Signs Vital signs: Vital Signs Temperature 36.7 C 09/07/19 10:39 Pulse 91 H 09/07/19 10:39 Respiratory Rate 16 09/07/19 10:39 Blood Pressure 133/86 09/07/19 10:39 Pulse Oximetry 98 09/07/19 10:39 Temperature 36.7 C 09/07/19 10:39 Temperature Source Skin 09/07/19 10:39 Pulse 91 H 09/07/19 10:39 Respiratory Rate 16 09/07/19 10:39 Respiratory Effort Non-Labored 09/07/19 10:39 Blood Pressure 133/86 09/07/19 10:39 Blood Pressure Position Sitting 09/07/19 10:39 Pulse Oximetry 98 09/07/19 10:39 Oxygen Delivery Method Room Air 09/07/19 10:39 Oxygen Flow Rate 0 09/07/19 10:39 Pain Level 10 09/07/19 10:39
== END 2019-09-07 10:54 | disposition home or self-care (01) ==
PROVIDERS: Emergency Provider Emergency Medicine; PCP Family Medicine
DX: R68.84 Jaw pain (principal); K04.7 Periapical abscess without sinus; J44.9 Chronic obstructive pulmonary disease, unspecified; F17.210 Nicotine dependence, cigarettes, uncomplicated
CPT/HCPCS: 99283

== ENCOUNTER 2019-12-25 10:17 | Emergency (ER) | payer MEDICARE, MEDICAID, SELFPAY ==
[2019-12-25 10:20] VITALS: BP 120/70; PULSE 86; RESP 16; TEMP 36.5; O2SAT 99
--- NOTE | 2019-12-25 10:35 | ED.GENADUL_ITS ---
Discharge Plan Disposition Patient Disposition: HOME Condition: Improving Discharge Details Chief Complaint: DentalOral Clinical Impression: Odontalgia Primary Care Provider: Yolette Monge ED Provider: Jewel Kimball Home Meds and New Rx's Prescriptions: New penicillin V potassium 500 mg tablet 500 mg PO TID 10 Days Qty: 30 RF: 0 Continued escitalopram oxalate [Lexapro] 20 MG tablet 40 mg PO DAILY RF: 0 Combivent 200 PUFF aerosol 1 puff Inhalation QID RF: 0 metformin 500 mg tablet 500 mg PO BID Qty: 60 RF: 0 budesonide-formoterol [Symbicort] 160-4.5 mcg/actuation HFA aerosol inhaler 2 puff IH Q12H Qty: 10.2 RF: 0 dextroamphetamine-amphetamine [Adderall] 15 mg Tablet 40 mg PO DAILY RF: 0 albuterol sulfate [Ventolin HFA] 90 mcg/actuation Hfa Aerosol Inhaler 1 puff INHALATION Q4H PRN PRNRF: 0 omeprazole 40 mg capsule,delayed release(DR/EC) 40 mg PO DAILY Qty: 30 RF: 0 Discharge Instructions Instructions: Toothache (ED) Additional Instructions: Please continue your regular medications. May continue Tylenol and ibuprofen as needed for pain. Soft diet. Warm salt water gargles. Follow-up with dentistry as planned. As we discussed the [facility] is an option and they may be reached at [phone]. Take penicillin as prescribed. Return for difficulty swallowing, high fever, difficulty breathing, or any other acute concern. Medical Decision Making 49-year-old female presents from home with a long history of odontalgia, status post previous extractions, now with pending dentistry follow-up that is been canceled due to the ongoing pandemic. She has broken cusp of tooth approximately 18, tenderness to percussion in that area, but no fluctuance. She declines a dental block. Will place her on penicillin, encourage ongoing follow-up with dentistry. She understands homecare as well as indications to seek reevaluation. Stable for discharge to home. HPI General Mode of arrival: ambulatory . Date/Time Provider Initiated Documentation: 12/25/19 10:18 . Limitations to Documentation: no limitations . Information obtained by: patient . History of Present Illness 49 year old F presents to the emergency department with the chief complaint of Right dental pain and ear pain, described as moderate and similar to prior episodes, Quality is described as dull and constant, and is localized to the face, mouth and right. Patient reports no radiation. Patient started experiencing this week(s) and it has been constant. No relieving factors improve symptom(s), No exacerbating factors reported . Patient notes denies fever/chills, head aches, loss of appetite and nausea/vomiting. Patient did receive the following treatments prior to arrival, other (Acetaminophen) Related Data Home Medications Medication Instructions Recorded Confirmed escitalopram oxalate [Lexapro] 40 mg PO DAILY 05/11/17 12/25/19 Combivent 1 puff INHALATION QID 05/29/17 12/25/19 budesonide-formoterol [Symbicort] 2 puff IH Q12H #10.2 gm 11/16/18 12/25/19 dextroamphetamine-amphetamine 40 mg PO DAILY 05/24/19 12/25/19 [Adderall] albuterol sulfate [Ventolin HFA] 1 puff INHALATION Q4H PRN PRN 05/25/19 12/25/19 omeprazole 40 mg PO DAILY #30 cap 05/26/19 12/25/19 metformin 500 mg PO BID #60 tab 07/01/19 12/25/19 penicillin V potassium 500 mg PO TID 10 Days #30 tab 12/25/19 Previous Rx's Medication Instructions Recorded budesonide-formoterol [Symbicort] 2 puff IH Q12H #10.2 gm 11/16/18 omeprazole 40 mg PO DAILY #30 cap 05/26/19 metformin 500 mg PO BID #60 tab 07/01/19 penicillin V potassium 500 mg PO TID 10 Days #30 tab 12/25/19 Allergies Allergy/AdvReac Type Severity Reaction Status Date / Time azithromycin [From Zithromax] Allergy Severe hives Unverified 12/25/19 10:28 aripiprazole Allergy Intermediate Nausea Unverified 12/25/19 10:28 chocolate flavor Allergy Unknown Unverified 12/25/19 10:28 coconut Allergy Unknown Unverified 12/25/19 10:28 erythromycin base Allergy Unknown Unverified 12/25/19 10:28 mushroom Allergy Unknown Unverified 12/25/19 10:28 pollen extracts Allergy Unknown Unverified 12/25/19 10:28 nicotine AdvReac Other (See Unverified 12/25/19 10:28 Comment) DUST Allergy Unknown Uncoded 12/25/19 10:28 General Stated Complaint: DentalOral NIC: 4 Review of Systems Narrative: No drooling, change to voice, she does have dentistry follow-up that has been canceled due to current pandemic. 6 systems reviewed and otherwise negative [facility] Medical History Abscess of sigmoid colon Bipolar affective disorder Bleeding external hemorrhoids Borderline personality disorder COPD (chronic obstructive pulmonary disease) Crohns disease DDD (degenerative disc disease), lumbosacral Depression with anxiety Disassociation disorder Major depressive disorder PTSD (post-traumatic stress disorder) Tobacco abuse (Acute) Surgical History Exam under Anesthesia (09/15/17) anal exam, anal fissure Social History Smoking/Tobacco Use Status: Current every day Tobacco Type: cigarettes Alcohol Intake: never Drug use: Never Substance use type: does not use Do you feel safe at home: Yes Do you feel safe in your relationship?: Yes Exam Narrative Exam Narrative: GEN: awake, alert, oriented 3. Pleasant, well groomed, interactive. HEAD: Normocephalic, atraumatic ENT: Mucous membranes moist, oropharynx reveals numerous previous extractions, there is broken teeth at approximately position 18, there is no significant buccal or lingual fluctuance/swelling. Uvula midline. Tympanic membranes clear bilaterally., External ear exam unremarkable EYES: PERRL, EOMI NECK: Full ROM, no JEANE, no menigismus CHEST/RESP: Nontender, clear to auscultation bilateral, no wheeze/rhonchi/rales CARDIOVASCULAR: RRR, no murmur, rub golden. 2+ Rad pulse bilateral EXT: Full ROM, no edema, no rash Neuro: Grossly normal neurologic exam, conversant, interactive. Psych: Speech fluent, thoughts congruent, affect normal Course Vital Signs Vital signs: Vital Signs Temperature 36.5 C 12/25/19 10:20 Pulse 86 12/25/19 10:20 Respiratory Rate 16 12/25/19 10:20 Blood Pressure 120/70 12/25/19 10:20 Pulse Oximetry 99 12/25/19 10:20 Temperature 36.5 C 12/25/19 10:20 Temperature Source Tympanic 12/25/19 10:20 Pulse 86 12/25/19 10:20 Respiratory Rate 16 12/25/19 10:20 Respiratory Effort Non-Labored 12/25/19 10:26 Blood Pressure 120/70 12/25/19 10:20 Blood Pressure Position Sitting 12/25/19 10:20 Pulse Oximetry 99 12/25/19 10:20 Oxygen Delivery Method Room Air 12/25/19 10:20 Oxygen Flow Rate 0 12/25/19 10:20 Pain Level 10 12/25/19 10:27
[2019-12-25] MEDS: Penicillin V POTASSIUM 500 MG TAB, 4 TABS/BTL PO (11:03)
== END 2019-12-25 11:06 | disposition home or self-care (01) ==
PROVIDERS: Emergency Provider Emergency Medicine; PCP Nurse Practitioner Family
DX: R68.84 Jaw pain (principal); J44.9 Chronic obstructive pulmonary disease, unspecified; F17.210 Nicotine dependence, cigarettes, uncomplicated
CPT/HCPCS: 99283

== ENCOUNTER 2020-05-17 14:36 | Outpatient (REF) | payer MEDICARE, MEDICAID, SELFPAY ==
[2020-05-17 15:03] LABS: HCT 44.9 % (36.0-46.0); HGB 14.9 g/dL (11.2-15.7); MCH 32.2 pg (27.0-33.0); MCHC 33.2 % (32.0-36.0); MPV 10.4 fL (8.0-11.0); Platelet Count 337 10^3/uL (130-400); RBC 4.63 10^6/uL (3.93-5.22); RDW-SD 42.7 fL; WBC 8.49 10^3/uL (4.4-10.8)
[2020-05-17 16:05] LABS: ALT 15 U/L (14-59); AST 17 U/L (15-37); Albumin 3.7 g/dL (3.4-5.0); Alkaline Phosphatase 81 U/L (46-116); Anion Gap 9.7 mmol/L (3-11); BUN 4 mg/dL (7-18); Bilirubin, Total 0.5 mg/dL (0.2-1.0); CO2 27.3 mmol/L (21.0-32.0); CREATININE 0.68 mg/dL (0.55-1.02); Calculated LDL 133 mg/dL (<100); Chloride 104 mmol/L (98-107); Cholesterol 185 mg/dL (<200); Glucose 114 mg/dL (74-106); HDL Cholesterol 38 mg/dL (40-60); Potassium 3.7 mmol/L (3.5-5.1); Sodium 141 mmol/L (136-145); TSH (W/Ref FT4) 1.26 uIU/mL (0.36-3.74); Total Protein 6.6 g/dL (6.4-8.2); Triglyceride 73 mg/dL (<150); Vitamin B12 495 pg/mL (193-986)
[2020-05-17 18:21] LABS: C-Reactive Protein 0.55 mg/dL (0.0-0.3)
[2020-05-18 11:41] LABS: Hepatitis C Ab w Rflx HCV PCR Negative (Negative)
== END 2020-05-17 14:56 ==
LOC: NCHCN 14:36
PROVIDERS: PCP Nurse Practitioner Family; Visit Provider Family Medicine
DX: E11.9 Type 2 diabetes mellitus without complications (principal); R20.0 Anesthesia of skin; K50.90 Crohn's disease, unspecified, without complications; Z11.59 Encounter for screening for other viral diseases
CPT/HCPCS: 80053; 80061; 85027; 86803; 82607; 84443; 86140

== ENCOUNTER 2020-07-20 09:20 | Emergency (ER) | payer MEDICARE, MEDICAID, SELFPAY ==
[2020-07-20] VITALS (30 sets, daily range): BP systolic 112–136; BP diastolic 54–82; PULSE 74–96; RESP 9–25; TEMP 36.5; O2SAT 93–99
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
[2020-07-20] MEDS: Normal Saline 1,000 ML 1000 ML IV (10:25)
[2020-07-20 10:30] LABS: Abs Immature Grans 0.02 10^3/uL (0.0-0.06); Absolute Basophil Count 0.03 10^3/uL (0.0-0.2); Absolute Eosinophil Count 0.32 10^3/uL (0.0-0.7); Absolute Lymphocyte Count 1.99 10^3/uL (1.2-3.4); Absolute Monocyte Count 0.44 10^3/uL (0.1-0.8); Basophils % 0.4; Eosinophils % 3.8; HGB 14.6 g/dL (11.2-15.7); Immature Grans % 0.2; Lymphocytes % 23.7; MCH 31.1 pg (27.0-33.0); MCHC 33.2 % (32.0-36.0); MCV 93.8 fL (80-95); MPV 9.9 fL (8.0-11.0); Monocytes % 5.2; Neutrophils % 66.7; Nucleated RBC 0 %; Platelet Count 354 10^3/uL (130-400); RBC 4.69 10^6/uL (3.93-5.22); RDW 11.7 % (11.7-14.6); RDW-SD 40.7 fL
[2020-07-20 10:50] LABS: ALT 12 U/L (14-59); AST 12 U/L (15-37); Albumin 3.3 g/dL (3.4-5.0); Alkaline Phosphatase 92 U/L (46-116); Anion Gap 8.8 mmol/L (3-11); BUN 5 mg/dL (7-18); Bilirubin, Total 0.2 mg/dL (0.2-1.0); CO2 26.2 mmol/L (21.0-32.0); CREATININE 0.62 mg/dL (0.55-1.02); Calcium 8.8 mg/dL (8.5-10.1); Chloride 102 mmol/L (98-107); Glucose 204 mg/dL (74-106); Lipase 85 U/L (73-393); Potassium 3.5 mmol/L (3.5-5.1); Sodium 137 mmol/L (136-145); Total Protein 6.8 g/dL (6.4-8.2)
[2020-07-20 11:16] LABS: HCG Qual (Serum) Negative
[2020-07-20] MEDS: Omnipaque 350 MG/ML 100 ML BTL IJ (11:20)
[2020-07-20] MEDS: Normal Saline - Diluent 50 ML VIAL IV (11:20)
[2020-07-20] MEDS: Ketorolac 30 MG/ML VIAL IVP (12:25)
== END 2020-07-20 12:55 | disposition home or self-care (01) ==
PROVIDERS: Emergency Provider Physician Assistant; PCP Family Medicine
DX: S40.011A Contusion of right shoulder, initial encounter (principal); S39.012A Strain of muscle, fascia and tendon of lower back, initial encounter; V48.5XXA Car driver injured in noncollision transport accident in traffic accident, initial encounter; M25.551 Pain in right hip; J44.9 Chronic obstructive pulmonary disease, unspecified; F17.210 Nicotine dependence, cigarettes, uncomplicated
CPT/HCPCS: 36415; 74177; 80053; 83690; 96361; 96374; 96375; 99285; 71260; 84703; 85025; J1885; J3490